=== PATIENT | male | born 1965 | race Caucasian/White ===

== ENCOUNTER → 2016-07-25 | Outpatient (CLI) | payer MEDICARE, OTHER ==
--- NOTE | 2016-07-25 15:39 | XR ---
EXAMINATION TYPE: XR chest 2V DATE OF EXAM: 07/25/2016 3:24 PM HISTORY: F17.200 nicotine dependence. REFERENCE: Previous study dated 11/19/2012. FINDINGS: The lungs are clear. Pleural spaces are clear. Heart size is normal. There is a mild pectus excavatum deformity. IMPRESSION: NORMAL CHEST.
== END ==
LOC: RADXRMAIN 15:09
PROVIDERS: ATTEND Physician Assistant
DX: F17.200 Nicotine dependence, unspecified, uncomplicated (principal)
CPT/HCPCS: 71020

== ENCOUNTER 2017-01-17 14:52 | Emergency (ER) | payer MEDICARE, OTHER ==
[2017-01-17 15:02] VITALS: BP 211/102; PULSE 85; RESP 18; TEMP 99.1
[2017-01-17] MEDS ORDERED: HYDROmorphone 1 MG/ML 1 ML SYRINGE IVP STA (15:50)
[2017-01-17] MEDS ORDERED: ONDANSETRON 4 MG/2 ML VIAL IVP STA (15:51)
[2017-01-17] MEDS ORDERED: DIPH,PERTUS(ACELL)TETVAC-LF 0.5 ML VIAL IM ONE (16:00)
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
== END 2017-01-17 16:01 | disposition left against medical advice (07) ==
LOC: EC 14:52
DX: S09.90XA Unspecified injury of head, initial encounter (principal); S19.9XXA Unspecified injury of neck, initial encounter; R55 Syncope and collapse; G40.909 Epilepsy, unspecified, not intractable, without status epilepticus; F41.9 Anxiety disorder, unspecified; R40.2412 Glasgow coma scale score 13-15, at arrival to emergency department; M19.90 Unspecified osteoarthritis, unspecified site; Z53.29 Procedure and treatment not carried out because of patient's decision for other reasons; Z87.891 Personal history of nicotine dependence; Z88.8 Allergy status to other drugs, medicaments and biological substances; Z79.891 Long term (current) use of opiate analgesic; Z79.899 Other long term (current) drug therapy; Y00.XXXA Assault by blunt object, initial encounter
CPT/HCPCS: 99283

== ENCOUNTER 2019-04-01 11:05 | Inpatient (IN) | payer MEDICARE, OTHER ==
[2019-04-01] MEDS ORDERED: MORPHINE SULFATE 2 MG/ML SYRINGE IVP STA (11:32)
[2019-04-01] MEDS ORDERED: SODIUM CHLORIDE 0.9% 1,000 ML IV STA (11:32)
[2019-04-01] MEDS ORDERED: ONDANSETRON 4 MG/2 ML VIAL IVP STA (11:32)
--- NOTE | 2019-04-01 11:37 | ED ---
General Adult HPI - General Chief complaint: Abdominal Pain Stated complaint: abdominal pain Time Seen by Provider: 04/01/19 11:20 Source: patient, RN notes reviewed, old records reviewed Mode of arrival: ambulatory Limitations: no limitations - History of Present Illness Initial comments: 53 yo male presenting with generalized abdominal pain. Patient does improve the pain is worse in the left side of his abdomen as well as left flank. Patient reports normal bowel movements just prior to arrival. He's had nausea and decreased appetite as well as several episodes of vomiting. Denies dysuria or hematuria. States he has had intermittent abdominal pain over the past several months however this has intensified over the past 4 days he's been unable to eat or drink. He's had previous hernia repair. No other abdominal surgeries. - Related Data Home Medications Medication Instructions Recorded Confirmed ALPRAZolam [Xanax] 0.5 mg PO BID 01/17/17 01/17/17 Acetaminophen with Codeine 1 tab PO TID 01/17/17 01/17/17 [Tylenol w/codeine #4] Diazepam [Valium] 5 mg PO BID 01/17/17 01/17/17 Gabapentin [Neurontin] 600 mg PO TID 01/17/17 01/17/17 HYDROcodone/APAP 5-325MG [[place] 1 tab PO Q8H PRN 01/17/17 01/17/17 5-325] carBAMazepine [TEGretol] 200 mg PO Q12H 01/17/17 01/17/17 traMADol HCl [Ultram] 50 - 100 mg PO Q6H PRN 01/17/17 01/17/17 Allergies Allergy/AdvReac Type Severity Reaction Status Date / Time diphenhydramine HCl Allergy Unknown Verified 04/01/19 11:14 [From Benadryl] Review of Systems ROS Statement: Those systems with pertinent positive or pertinent negative responses have been documented in the HPI. ROS Other: All systems not noted in ROS Statement are negative. Past Medical History Past Medical History: Osteoarthritis (OA) Additional Past Medical History / Comment(s): epilepsy, chronic back/neck pain History of Any Multi-Drug Resistant Organisms: None Reported Past Surgical History: Hernia Repair Past Psychological History: Anxiety, Depression Smoking Status: Former smoker Past Alcohol Use History: Occasional Past Drug Use History: Marijuana General Exam Limitations: no limitations General appearance: alert, in no apparent distress Head exam: Present: atraumatic, normocephalic Eye exam: Present: normal appearance, PERRL ENT exam: Present: normal exam Neck exam: Present: normal inspection. Absent: tenderness Respiratory exam: Present: normal lung sounds bilaterally. Absent: respiratory distress, wheezes Cardiovascular Exam: Present: regular rate, normal rhythm GI/Abdominal exam: Present: soft, tenderness (Tenderness palpation left upper and lower). Absent: distended Extremities exam: Present: normal inspection, normal capillary refill. Absent: pedal edema Neurological exam: Present: alert, oriented X3, CN II-XII intact. Absent: motor sensory deficit Psychiatric exam: Present: normal affect, normal mood Skin exam: Present: warm, dry, intact. Absent: cyanosis, diaphoretic Course Vital Signs 04/01/19 11:15 Temperature 97.8 F Pulse Rate 98 Respiratory 18 Rate Blood Pressure 134/78 O2 Sat by Pulse 99 Oximetry Medical Decision Making - Medical Decision Making 53-year-old male with anorexia, nausea, and abdominal pain. Laboratory studies obtained, patient has normal CBC, CMP shows hyperbilirubinemia with the bilirubin of 2.2, elevated AST and ALT at 233 and 727 respectively. CAT scan does show an dilated common bile duct as well as ileus and question of free fluid of uncertain etiology within the pelvis., Bile duct 1.0 cm. Ultrasound is obtained which does show similar findings with no other acute findings. Patient has not eaten, clinically appearing very dehydrated. He will be admitted for IV fluids and gastroenterology evaluation. Additional laboratory studies have been added and these are pending including Tylenol level, bilirubin fractions, and hepatitis panel. - Lab Data Result diagrams: 04/01/19 11:52 04/01/19 11:52 Lab Results 04/01/19 04/01/19 04/01/19 Range/Units 11:52 11:52 11:52 WBC 4.9 (3.8-10.6) k/uL RBC 4.15 L (4.30-5.90) m/uL Hgb 13.6 (13.0-17.5) gm/dL Hct 40.8 (39.0-53.0) % MCV 98.4 (80.0-100.0) fL MCH 32.7 (25.0-35.0) pg MCHC 33.3 (31.0-37.0) g/dL RDW 14.2 (11.5-15.5) % Plt Count 285 (150-450) k/uL Neutrophils % 72 % Lymphocytes % 17 % Monocytes % 6 % Eosinophils % 2 % Basophils % 1 % Neutrophils # 3.5 (1.3-7.7) k/uL Lymphocytes # 0.9 L (1.0-4.8) k/uL Monocytes # 0.3 (0-1.0) k/uL Eosinophils # 0.1 (0-0.7) k/uL Basophils # 0.0 (0-0.2) k/uL Sodium 135 L (137-145) mmol/L Potassium 4.0 (3.5-5.1) mmol/L Chloride 103 (98-107) mmol/L Carbon Dioxide 25 (22-30) mmol/L Anion Gap 7 mmol/L BUN 12 (9-20) mg/dL Creatinine 0.65 L (0.66-1.25) mg/dL Est GFR (CKD-EPI)AfAm >90 (>60 ml/min/1.73 sqM) Est GFR (CKD-EPI)NonAf >90 (>60 ml/min/1.73 sqM) Glucose 143 H (74-99) mg/dL Plasma Lactic Acid Juan M 1.7 (0.7-2.0) mmol/L Calcium 8.6 (8.4-10.2) mg/dL Total Bilirubin 2.2 H (0.2-1.3) mg/dL AST 233 H (17-59) U/L ALT 727 H (21-72) U/L Alkaline Phosphatase 92 (38-126) U/L Total Protein 7.0 (6.3-8.2) g/dL Albumin 3.4 L (3.5-5.0) g/dL Amylase 50 (30-110) U/L Lipase 146 (23-300) U/L Urine Color Urine Appearance (Clear) Urine pH (5.0-8.0) Ur Specific [place] (1.001-1.035) Urine Protein (Negative) Urine Glucose (UA) (Negative) Urine Ketones (Negative) Urine Blood (Negative) Urine Nitrite (Negative) Urine Bilirubin (Negative) Urine Urobilinogen (<2.0) mg/dL Ur Leukocyte Esterase (Negative) 04/01/19 Range/Units 11:52 WBC (3.8-10.6) k/uL RBC (4.30-5.90) m/uL Hgb (13.0-17.5) gm/dL Hct (39.0-53.0) % MCV (80.0-100.0) fL MCH (25.0-35.0) pg MCHC (31.0-37.0) g/dL RDW (11.5-15.5) % Plt Count (150-450) k/uL Neutrophils % % Lymphocytes % % Monocytes % % Eosinophils % % Basophils % % Neutrophils # (1.3-7.7) k/uL Lymphocytes # (1.0-4.8) k/uL Monocytes # (0-1.0) k/uL Eosinophils # (0-0.7) k/uL Basophils # (0-0.2) k/uL Sodium (137-145) mmol/L Potassium (3.5-5.1) mmol/L Chloride (98-107) mmol/L Carbon Dioxide (22-30) mmol/L Anion Gap mmol/L BUN (9-20) mg/dL Creatinine (0.66-1.25) mg/dL Est GFR (CKD-EPI)AfAm (>60 ml/min/1.73 sqM) Est GFR (CKD-EPI)NonAf (>60 ml/min/1.73 sqM) Glucose (74-99) mg/dL Plasma Lactic Acid Juan M (0.7-2.0) mmol/L Calcium (8.4-10.2) mg/dL Total Bilirubin (0.2-1.3) mg/dL AST (17-59) U/L ALT (21-72) U/L Alkaline Phosphatase (38-126) U/L Total Protein (6.3-8.2) g/dL Albumin (3.5-5.0) g/dL Amylase (30-110) U/L Lipase (23-300) U/L Urine Color Yellow Urine Appearance Clear (Clear) Urine pH 6.0 (5.0-8.0) Ur Specific [place] 1.045 H (1.001-1.035) Urine Protein Negative (Negative) Urine Glucose (UA) Negative (Negative) Urine Ketones Negative (Negative) Urine Blood Negative (Negative) Urine Nitrite Negative (Negative) Urine Bilirubin Negative (Negative) Urine Urobilinogen <2.0 (<2.0) mg/dL Ur Leukocyte Esterase Negative (Negative) Disposition Clinical Impression: Abdominal pain, Transaminitis, Hyperbilirubinemia Disposition: ADMITTED IP TO THIS HOSP Condition: Stable Referrals: None,Stated [Primary Care Provider] - 1-2 days Decision to Admit Reason: Admit from EC Decision Date: 04/01/19 Decision Time: 13:58
[2019-04-01 12:20] LABS: Basophils % (A) 1 %; Eosinophils # (A) 0.1 k/uL (0-0.7); Eosinophils % (A) 2 %; HCT 40.8 % (39.0-53.0); HGB 13.6 gm/dL (13.0-17.5); Lymphocytes # (A) 0.9 k/uL (1.0-4.8); Lymphocytes % (A) 17 %; MCH 32.7 pg (25.0-35.0); MCHC 33.3 g/dL (31.0-37.0); MCV 98.4 fL (80.0-100.0); Mean Platelet Volume 7.1; Monocytes # (A) 0.3 k/uL (0-1.0); Monocytes % (A) 6 %; Neutrophils # (A) 3.5 k/uL (1.3-7.7); Neutrophils % (A) 72 %; Platelet Count 285 k/uL (150-450); RBC 4.15 m/uL (4.30-5.90); RDW 14.2 % (11.5-15.5); WBC 4.9 k/uL (3.8-10.6)
[2019-04-01 12:25] LABS: ALT 727 U/L (21-72); AST 233 U/L (17-59); African American GFR (CKD) >90 (>60 ml/min/1.73 sqM); Albumin 3.4 g/dL (3.5-5.0); Alkaline Phosphatase 92 U/L (38-126); Amylase 50 U/L (30-110); Anion Gap 7 mmol/L; Blood Urea Nitrogen 12 mg/dL (9-20); Calcium 8.6 mg/dL (8.4-10.2); Carbon Dioxide 25 mmol/L (22-30); Chloride 103 mmol/L (98-107); Glucose 143 mg/dL (74-99); Non-African American GFR(CKD) >90 (>60 ml/min/1.73 sqM); Sodium 135 mmol/L (137-145); Total Bilirubin 2.2 mg/dL (0.2-1.3)
--- NOTE | 2019-04-01 12:38 | CT ---
EXAMINATION TYPE: CT abdomen pelvis w con DATE OF EXAM: 04/01/2019 COMPARISON: NONE HISTORY: 53-year-old male with generalized abdominal pain, posteriorly as well TECHNIQUE: Contiguous axial scanning of the abdomen and pelvis following administration of 100 ml Iso sebastien 300 IV contrast. Delayed images through the kidneys and coronal/sagittal reconstructions perform ed. CT DLP: 556.3 mGycm Automated exposure control for dose reduction was used. FINDINGS: Heart normal size without pericardial effusion. Lung bases clear without pleural effusion. Scattered subcentimeter hypodensities within the left hepatic lobe too small for accurate CT characte rization, likely cysts. The bile duct is mildly dilated at 1 cm along with mild intrahepatic biliary ductal dilatation as wel l. No discrete filling defect is identified in the bile duct. Portal venous system is patent. Gallbladder, adrenal glands, spleen, and pancreas appear within normal limits. Kidneys show tiny subcentimeter hypodensities on both sides, too small for accurate CT characterizati on, likely tiny cortical cysts. There is a dominant 1.3 cm cyst centrally in the left kidney. On the right, the couple's the areas of striated hypoenhancement, reference axial image 36 and fleming l image 33, 36, 37. There is motion artifact through these regions. No dilated small bowel, free fluid, or free air. A few prominent small bowel loops in the left lower quadrant measure up to 2.8 cm. Scattered mild stool. Significant paucity of intra-abdominal fat limits evaluation for lymphadenopath y. Mild atherosclerosis calcifications infrarenal abdominal aorta without aneurysm. Bladder urine distended. Central and peripheral prostatic calcifications. Prostate gland measures 4.4 cm wide. There is mild pelvic free fluid on the right. Left-sided pelvic free fluid. Bones: Hypertrophic facet arthropathy lower lumbar spine with grade 1 anterolisthesis at L5-S1. Moder ate to severe degenerative disc disease L-1-L2 and moderate within the visualized lower thoracic spin e. IMPRESSION: 1. Very subtle striated areas of hypoenhancement within the right kidney may be artifact from breathi ng motion. Correlate to exclude the possibility of pyelonephritis. 2. Mild biliary ductal dilatation. The bile duct measures 1 cm. Correlate with alkaline phosphatase a nd bilirubin levels to exclude biliary obstruction. 3. A few prominent small bowel loops in the left lower quadrant measure up to 2.8 cm and may be trans ient or could reflect a regional ileus or enteritis. 4. Mild pelvic free fluid on the right, abnormal in a male patient. Clinical follow-up as indicated.
--- NOTE | 2019-04-01 13:37 | US ---
EXAMINATION TYPE: US gallbladder DATE OF EXAM: 04/01/2019 COMPARISON: NONE CLINICAL HISTORY: bile obstruction?. Bile obstruction. EXAM MEASUREMENTS: Liver Length: 17 cm Gallbladder Wall: .3 cm CBD: .9 cm Right Kidney: 11.4 x 5.3 x 4.5 cm Pancreas: wnl Liver: wnl Gallbladder: No stones seen Evidence for sonographic Solo's sign: No CBD: wnl Right Kidney: wnl IMPRESSION: Mild prominence of the common bile duct of uncertain etiology. The study is otherwise unremarkable.
[2019-04-01 13:49] LABS: Appearance,Urine Clear (Clear); Bilirubin,Urine Negative (Negative); Blood,Urine Negative (Negative); Color,Urine Yellow; Glucose,Urine (UA) Negative (Negative); Ketones,Urine Negative (Negative); Leukocyte Esterase,Urine Negative (Negative); Nitrite,Urine Negative (Negative); Protein,Urine Negative (Negative); Specific Gravity,Urine 1.045 (1.001-1.035); Urobilinogen,Urine <2.0 mg/dL (<2.0)
[2019-04-01] MEDS ORDERED: ONDANSETRON 4 MG/2 ML VIAL IVP PRN (13:54)
[2019-04-01] MEDS ORDERED: NALOXONE 0.4 MG/ML 1 ML VIAL IV PRN (13:54)
[2019-04-01 14:34] VITALS: RESP 16
[2019-04-01] MEDS: SODIUM CHLORIDE 0.9% 1,000 ML IV SCH (14:47)
[2019-04-01 15:22] LABS: Acetaminophen <10.0 ug/mL; Bilirubin, Delta 1.6 mg/dL (0.0-0.2); Bilirubin,Unconjugated 0.6 mg/dL (0.0-1.1); Total Bilirubin 2.2 mg/dL (0.2-1.3)
[2019-04-01] MEDS ORDERED: NICOTINE 14MG/24HR PATCH TRANSDERM SCH (16:00)
[2019-04-01] MEDS ORDERED: traMADol 50 MG TAB PO PRN (16:21)
--- NOTE | 2019-04-01 16:26 | P.HPIM ---
History of Present Illness 3-year-old male complaints of abdominal pain mostly in the back area paraspinal area which is sharp in nature nonradiating which appears to be muscle spasm. Patient is also complaining of on and off abdominal pain although it doesn't localize it very well because of his ADHD appears to have pains secondary to gallstones. Patient doesn't eat because of anticipation of pain and has been losing weight. Patient denied any significant nausea or vomiting. Patient denied any dysuria suprapubic pain CAT scan of the abdomen was opted which showed some cholelithiasis with the common bile duct stone with elevated bilirubin and liver enzymes. Patient doesn't have any fevers patient has a wound from scratching the left upper back which doesn't appear to be infected and appear to be healing patient at nighttime becomes anxious and starts scratching. Review of Systems REVIEW OF SYSTEMS: CONSTITUTIONAL: No fever, no malaise, no fatigue. HEENT: No recent visual problems or hearing problems. Denied any sore throat. CARDIOVASCULAR: No chest pain, orthopnea, PND, no palpitations, no syncope. PULMONARY: No shortness of breath, no cough, no hemoptysis. GASTROINTESTINAL: No diarrhea, no nausea, no vomiting. NEUROLOGICAL: No headaches, no weakness, no numbness. HEMATOLOGICAL: Denies any bleeding or petechiae. GENITOURINARY: Denies any burning micturition, frequency, or urgency. MUSCULOSKELETAL/RHEUMATOLOGICAL: Denies any joint pain, swelling, or any muscle pain. ENDOCRINE: Denies any polyuria or polydipsia. The rest of the 14-point review of systems is negative. Past Medical History Past Medical History: Osteoarthritis (OA) Additional Past Medical History / Comment(s): epilepsy, chronic back/neck pain History of Any Multi-Drug Resistant Organisms: None Reported Past Surgical History: Hernia Repair Past Psychological History: Anxiety, Depression Smoking Status: Former smoker Past Alcohol Use History: Occasional Past Drug Use History: Marijuana Medications and Allergies Home Medications Medication Instructions Recorded Confirmed Type HYDROcodone/APAP 5-325MG [[place] 1 tab PO DAILY PRN 01/17/17 04/01/19 History 5-325] traMADol HCl [Ultram] 50 mg PO TID PRN 01/17/17 04/01/19 History Allergies Allergy/AdvReac Type Severity Reaction Status Date / Time diphenhydramine HCl Allergy Unknown Verified 04/01/19 14:10 [From [facility]] Physical Exam Vitals: Vital Signs Temp Pulse Pulse Resp BP BP Pulse Ox 04/01/19 14:33 97.8 F 54 L 16 139/85 99 04/01/19 14:21 85 18 132/76 98 04/01/19 11:15 97.8 F 98 18 134/78 99 Intake and Output 04/01/19 04/01/19 04/01/19 06:59 14:59 22:59 Other: Voiding Method Toilet Weight 54.431 kg PHYSICAL EXAMINATION: GENERAL: The patient is alert and oriented x3, not in any acute distress. And built female HEENT: Pupils are round and equally reacting to light. EOMI. No scleral icterus. No conjunctival pallor. Normocephalic, atraumatic. No pharyngeal erythema. No thyromegaly. CARDIOVASCULAR: S1 and S2 present. No murmurs, rubs, or gallops. PULMONARY: Chest is clear to auscultation, no wheezing or crackles. ABDOMEN: Soft, nontender, nondistended, normoactive bowel sounds. No palpable organomegaly. MUSCULOSKELETAL: No joint swelling or deformity. EXTREMITIES: No cyanosis, clubbing, or pedal edema. NEUROLOGICAL: Gross neurological examination did not reveal any focal deficits. SKIN: No rashes. Results CBC & Chem 7: 04/01/19 11:52 04/01/19 11:52 Labs: Abnormal Lab Results - Last 24 Hours (Table) 04/01/19 04/01/19 04/01/19 Range/Units 11:52 11:52 11:52 RBC 4.15 L (4.30-5.90) m/uL Lymphocytes # 0.9 L (1.0-4.8) k/uL Sodium 135 L (137-145) mmol/L Creatinine 0.65 L (0.66-1.25) mg/dL Glucose 143 H (74-99) mg/dL Total Bilirubin 2.2 H (0.2-1.3) mg/dL Delta Bilirubin (0.0-0.2) mg/dL AST 233 H (17-59) U/L ALT 727 H (21-72) U/L Albumin 3.4 L (3.5-5.0) g/dL Ur Specific [place] 1.045 H (1.001-1.035) 04/01/19 Range/Units 14:56 RBC (4.30-5.90) m/uL Lymphocytes # (1.0-4.8) k/uL Sodium (137-145) mmol/L Creatinine (0.66-1.25) mg/dL Glucose (74-99) mg/dL Total Bilirubin 2.2 H (0.2-1.3) mg/dL Delta Bilirubin 1.6 H (0.0-0.2) mg/dL AST (17-59) U/L ALT (21-72) U/L Albumin (3.5-5.0) g/dL Ur Specific [place] (1.001-1.035) Assessment and Plan Plan: -Elevated liver numbers possibly of choledocholithiasis we'll repeat liver enzymes again tomorrow and gastroenterology was consulted patient may have cholelithiasis which is not clearly evident at this time may have passed a stone. -Back pain probably paraspinal muscle spasm or heat pack was advised Gastroesophageal reflux disease continue Protonix -ADHD patient doesn't appear to be in any medications for that -Nicotine abuse: Counseling was provided, occasional marijuana his counseling was provided DVT prophylaxis early ambulation
[2019-04-01] MEDS: HYDROmorphone 0.5 MG/0.5 ML SYRINGE IVP PRN ×3 (16:46→23:58)
[2019-04-02 04:07] LABS: Hepatitis A Antibody IgM Non-Reactive (Non-Reactive); Hepatitis B Core IgM Reactive (Non-Reactive); Hepatitis C IgG Antibody Reactive (Non-Reactive)
[2019-04-02] MEDS: HYDROmorphone 0.5 MG/0.5 ML SYRINGE IVP PRN ×3 (05:04→10:21)
[2019-04-02] MEDS: SODIUM CHLORIDE 0.9% 1,000 ML IV SCH (05:05)
[2019-04-02 05:31] VITALS: BP 118/76; PULSE 56; TEMP 98.3
[2019-04-02 08:16] LABS: ALT 619 U/L (21-72); AST 194 U/L (17-59); African American GFR (CKD) >90 (>60 ml/min/1.73 sqM); Alkaline Phosphatase 90 U/L (38-126); Anion Gap 4 mmol/L; Blood Urea Nitrogen 8 mg/dL (9-20); Calcium 8.6 mg/dL (8.4-10.2); Carbon Dioxide 28 mmol/L (22-30); Chloride 104 mmol/L (98-107); Glucose 92 mg/dL (74-99); Non-African American GFR(CKD) >90 (>60 ml/min/1.73 sqM); Potassium 5.1 mmol/L (3.5-5.1); Sodium 136 mmol/L (137-145); Total Bilirubin 1.9 mg/dL (0.2-1.3); Total Protein 6.4 g/dL (6.3-8.2)
[2019-04-02 08:44] LABS: INR 1.1 (<1.2); Prothrombin Time 11.7 sec (9.0-12.0)
[2019-04-02] MEDS ORDERED: PANTOPRAZOLE 40 MG/10 ML VIAL IV SCH (09:00)
[2019-04-02 11:42] LABS: Hepatitis B Surface Antigen Reactive (Non-Reactive)
--- NOTE | 2019-04-02 14:20 | MR ---
MRCP HISTORY: Bowel dilation, abdominal pain Multiplanar multisequence imaging obtained through the abdomen, three-dimensional reconstructions per formed through the biliary system on an alternate workstation Correlation to ultrasound gallbladder and CT abdomen pelvis 04/01/2019 The liver shows no mass, scattered T2 intense hyperintensities left lobe likely represent cysts. At a phase imaging shows unusual appearance possibly due to technical factors. There is no ascites. Gallb ladder shows no stone. There are prominent intra and extrahepatic biliary ducts as noted on CT and ul trasound, common bile duct dilated to 1 cm. There is no filling defect to suggest choledocholithiasis . No definite pancreatic ductal dilation, pancreas shows no mass. There is however on coronal image # [address] scan questionable abnormal soft tissue at the level of the distal common bile winsome t possibly similar appearance seen on coronal image #51 and 50 of the post process images. Third port ion of duodenum also appears markedly prominent as on CT, there is dilation of the duodenum at this l evel. The kidneys and adrenal glands are unremarkable, cortical cyst associated with the left kidney.. Sple en is not enlarged. No retroperitoneal adenopathy or ascites. Lung bases are clear. Aorta is not dila jenn. IMPRESSION: Difficult to exclude ampullary mass, consider endoscopy. Possible hepatic steatosis.
--- NOTE | 2019-04-02 15:15 | P.PN ---
Subjective Progress Note Date: 04/02/19 Patient left AGAINST MEDICAL ADVICE. Lab results showing hepatitis B positive antibody and hepatitis C positive antibody further blood work pending. MRCP was completed. Public guardian Antonio Hitchcock's office, spoke with Emilianaeverett, notified at [phone] that patient needs follow-up with gastroenterology office Dr. Mckeon regarding Hepatitis status and MRCP results, they can call [phone] to set up appointment. Objective - Vital Signs Vital signs: Vital Signs Temp 98.3 F 04/02/19 05:00 Pulse 56 L 04/02/19 05:00 Resp 16 04/02/19 05:00 BP 118/76 04/02/19 05:00 Pulse Ox 99 04/02/19 05:00 Intake & Output 04/01/19 04/02/19 04/02/19 18:59 06:59 18:59 Intake Total 540 1140 Balance 540 1140 Weight 54.431 kg Intake: Intake, IV Titration 900 Amount Sodium Chloride 0.9% 1, 900 000 ml @ 75 mls/hr IV . [id number] [facility] Rx#:[id number] Oral 540 240 Other: Voiding Method Toilet Toilet Toilet # Voids 1 - Labs CBC & Chem 7: 04/01/19 11:52 04/02/19 07:48 Labs: Abnormal Lab Results - Last 24 Hours (Table) 04/01/19 04/01/19 04/02/19 Range/Units 14:56 14:56 07:48 Sodium 136 L (137-145) mmol/L BUN 8 L (9-20) mg/dL Total Bilirubin 2.2 H 1.9 H (0.2-1.3) mg/dL Delta Bilirubin 1.6 H (0.0-0.2) mg/dL AST 194 H (17-59) U/L ALT 619 H (21-72) U/L Albumin 3.0 L (3.5-5.0) g/dL Hep Bs Antigen Reactive H (Non-Reactive) Hep B Core IgM Ab Reactive H (Non-Reactive) Hep C IgG Ab Reactive H (Non-Reactive)
--- NOTE | 2019-04-02 16:07 | P.DS ---
Providers Date of admission: 04/01/19 13:54 Attending physician: Norris Stiles Consults: 04/01/19 13:55 Consult Physician Routine Consulting Provider: yAan Mckeon Consult Reason/Comments: Transaminitis, hyperbilirubinemia, dilated bile duct Do you want consulting provider notified?: Yes 04/02/19 10:32 Consult Physician Routine Consulting Provider: Psychiatry - [facility] Psychiatry Consult Reason/Comments: anxiety Do you want consulting provider notified?: Already Contacted Primary care physician: Stated None Hospital Course: Patient left AGAINST MEDICAL ADVICE Patient Condition at Discharge: Stable Plan - Discharge Summary Discharge Rx Participant: No New Discharge Prescriptions: No Action HYDROcodone/APAP 5-325MG [[place] 5-325] 1 tab PO DAILY PRN PRN Reason: Pain traMADol HCl [Ultram] 50 mg PO TID PRN PRN Reason: Pain Discharge Medication List HYDROcodone/APAP 5-325MG [[place] 5-325] 1 tab PO DAILY PRN 01/17/17 [History] traMADol HCl [Ultram] 50 mg PO TID PRN 01/17/17 [History] Follow up Appointment(s)/Referral(s): None,Stated [Primary Care Provider] - 1-2 days Discharge Disposition: Left Against Medical Advice
[2019-04-04 15:05] LABS: HCV Qualitative Result DETECTED (Not detected); HCV Quantitative Result 50 IU/mL (<12)
== END 2019-04-02 12:10 | disposition left against medical advice (07) | DRG 442 ==
LOC: EC 11:05 → 3NMEDONC 13:54 → EEVIPCON 13:54
PROVIDERS: ADMIT Hospitalist; ATTEND Hospitalist
DX: B19.10 Unspecified viral hepatitis B without hepatic coma (principal); K56.7 Ileus, unspecified; K82.8 Other specified diseases of gallbladder; Z71.51 Drug abuse counseling and surveillance of drug abuser; F12.10 Cannabis abuse, uncomplicated; F32.9 Major depressive disorder, single episode, unspecified; F41.9 Anxiety disorder, unspecified; F90.9 Attention-deficit hyperactivity disorder, unspecified type; G40.909 Epilepsy, unspecified, not intractable, without status epilepticus; K21.9 Gastro-esophageal reflux disease without esophagitis; B19.20 Unspecified viral hepatitis C without hepatic coma; M19.90 Unspecified osteoarthritis, unspecified site; M79.18 Myalgia, other site; G89.29 Other chronic pain; M54.2 Cervicalgia; Z88.8 Allergy status to other drugs, medicaments and biological substances; Z87.891 Personal history of nicotine dependence
CPT/HCPCS: 36415; 74177; 74181; 76705; 80053; 80074; 80329; 81003; 82150; 82248; 83605; 83690; 85025; 85610; 87340; 87350; 87522; 96361; 96374; 96375; 99285

== ENCOUNTER → 2019-05-01 | Outpatient (CLI) | payer MEDICARE, OTHER ==
[2019-05-01 12:37] LABS: Prothrombin Time 10.4 sec (9.0-12.0)
[2019-05-01 12:40] LABS: Basophils % (A) 0 %; Eosinophils # (A) 0.2 k/uL (0-0.7); Eosinophils % (A) 2 %; HCT 40.7 % (39.0-53.0); HGB 13.8 gm/dL (13.0-17.5); Lymphocytes # (A) 1.9 k/uL (1.0-4.8); Lymphocytes % (A) 20 %; MCH 32.8 pg (25.0-35.0); MCV 96.6 fL (80.0-100.0); Mean Platelet Volume 7.3; Monocytes # (A) 0.3 k/uL (0-1.0); Monocytes % (A) 3 %; Neutrophils # (A) 6.8 k/uL (1.3-7.7); Neutrophils % (A) 73 %; RBC 4.22 m/uL (4.30-5.90); RDW 14.1 % (11.5-15.5); WBC 9.4 k/uL (3.8-10.6)
[2019-05-01 12:42] LABS: Platelet Count 654 k/uL (150-450)
[2019-05-01 17:47] LABS: % Iron Saturation 22.08 (15.00-50.00); African American GFR (CKD) 132.1 (60.0-200.0); Albumin 3.7 g/dL (3.80-4.90); Albumin/Globulin Ratio 1.12 (1.60-3.17); Anion Gap 6.1 mmol/L (4.00-12.00); BUN/Creat Ratio 36.67 Ratio (12.00-20.00); Calcium 9.4 mg/dL (8.7-10.3); Carbon Dioxide 27.9 mmol/L (21.6-31.8); Globulin 3.3 g/dL (1.6-3.3); Potassium 4.8 mmol/L (3.5-5.5); Total Bilirubin 0.4 mg/dL (0.2-1.2)
[2019-05-01 18:00] LABS: Alpha Fetoprotein, Tumor Mkr <2.5 ng/mL (0.0-7.9); Ferritin 359.2 ng/mL (22.0-322.0)
[2019-05-01 19:10] LABS: HIV 1 AB Non-Reactive (Non-Reactive); HIV 2 AB Non-Reactive (Non-Reactive); HIV AB P24 Non-Reactive (Non-Reactive); HIV P24 AG Non-Reactive (Non-Reactive)
[2019-05-02 11:34] LABS: Liver/Kidney Microsome Antibod 1.7 UNITS (<=20); Smooth Muscle Antibody 14 UNITS (<20)
[2019-05-02 13:10] LABS: Alpha 1 Anti-Trypsin 289 mg/dL (90 - 200)
[2019-05-02 14:36] LABS: HCV Qualitative Result DETECTED (Not detected); HCV Quant Log 1.15 (<1.08); HCV Quantitative Result 14 IU/mL (<12)
[2019-05-02 15:50] LABS: Hepatitis B Virus DNA DETECTED (Not detected); Hepatitis B Virus DNA, Quant 261 IU/mL (<10); Log HBV IU/mL 2.42 (<1.00)
[2019-05-03 13:42] LABS: Ceruloplasmin 34.2 mg/dL (20.0-60.0)
== END | disposition home or self-care (01) ==
LOC: LABWHC1 11:21
PROVIDERS: ATTEND Nurse Practitioner
DX: R76.8 Other specified abnormal immunological findings in serum (principal); R74.8 Abnormal levels of other serum enzymes; Z86.19 Personal history of other infectious and parasitic diseases
CPT/HCPCS: 36415; 80053; 82103; 82104; 82105; 82390; 82728; 83516; 83540; 83550; 84165; 85025; 85610; 86038; 86376; 87390; 87517; 87522

== ENCOUNTER 2019-10-21 01:02 | Emergency (ER) | payer MEDICARE, OTHER ==
[2019-10-21 01:13] VITALS: BP 153/87; PULSE 104; RESP 17; TEMP 98.4
[2019-10-21] MEDS ORDERED: AMOXIC-POT CLAV 875MG STARTER PACK 2 TAB BTL PO STA (01:13)
[2019-10-21] MEDS ORDERED: AMOXIC-POT CLAV 875-125MG 1 EACH TAB PO STA (01:13)
[2019-10-21] MEDS ORDERED: DIPH,PERTUS(ACELL)TETVAC-LF 0.5 ML VIAL IM ONE (01:13)
--- NOTE | 2019-10-21 01:50 | ED ---
General Adult HPI - General Chief complaint: Extremity Injury, Upper Stated complaint: cat bite Time Seen by Provider: 10/21/19 01:03 Source: patient, EMS, RN notes reviewed, old records reviewed Mode of arrival: EMS Limitations: no limitations - History of Present Illness Initial comments: 53-year-old male patient presents ED for evaluation of cat scratch. Patient reports that there is a large cat by his house that was attempting he believes teammate with another cat that he owns. Patient was trying to separate these cats when the large cat that he is unfamiliar with scratched him on the dorsum of his left hand and one time on the first digit of his right hand. Patient was this happened very fast. Patient states that last tetanus was 14 years ago. Denies any other complaints. Systemic: Pt denies fatigue, fever/chills, rash. Pt denies weakness, night sweats, weight loss. Neuro: Pt denies headache, visual disturbances, syncope or pre-syncope. HEENT: Pt denies ocular discharge or irritation, otalgia, rhinorrhea, pharyngitis or notable lymphadenopathy. Cardiopulmonary: Pt denies chest pain, SOB, heart palpitations, dyspnea on exertion. Abdominal/GI: Pt denies abdominal pain, n/v/d. : Pt denies dysuria, burning w/ urination, frequency/urgency. Denies new onset urinary or bowel incontinence. MSK: Pt denies myalgia, loss of strength or function in extremities. Neuro: Pt denies new onset weakness, paresthesias. - Related Data Home Medications Medication Instructions Recorded Confirmed HYDROcodone/APAP 5-325MG [[place] 1 tab PO DAILY PRN 01/17/17 04/01/19 5-325] traMADol HCl [Ultram] 50 mg PO TID PRN 01/17/17 04/01/19 Previous Rx's Medication Instructions Recorded Amoxicillin/Potassium Clav 1 each PO Q12HR 10 Days #20 tab 10/21/19 [Augmentin 875-125 Tablet] Allergies Allergy/AdvReac Type Severity Reaction Status Date / Time diphenhydramine HCl Allergy Unknown Verified 04/01/19 14:10 [From Benadryl] Review of Systems ROS Statement: Those systems with pertinent positive or pertinent negative responses have been documented in the HPI. ROS Other: All systems not noted in ROS Statement are negative. Past Medical History Past Medical History: Osteoarthritis (OA) Additional Past Medical History / Comment(s): epilepsy, chronic back/neck pain, hepatitis C History of Any Multi-Drug Resistant Organisms: None Reported Past Surgical History: Hernia Repair Additional Past Surgical History / Comment(s): R inguinal hernia repair, L arm benign tumor excision. Past Anesthesia/Blood Transfusion Reactions: No Reported Reaction Past Psychological History: Anxiety, Depression Smoking Status: Current every day smoker Past Alcohol Use History: Occasional Past Drug Use History: Marijuana - Past Family History Father Family Medical History: Cancer Additional Family Medical History / Comment(s): lung/liver cancer. He is . Mother Family Medical History: Cancer Additional Family Medical History / Comment(s): Mother of lung cancer. She was a smoker. General Exam - General Exam Comments Initial Comments: Constitutional: NAD, AOX3, Pt has pleasant affect. HEENT: NC/AT, trachea midline, neck supple, no lymphadenopathy. Posterior pharynx non erythematous, without exudates. External ears appear normal, without discharge. Mucous membranes moist. Eyes PERRLA, EOM intact. There is no scleral icterus. No pallor noted. Cardiopulmonary: RRR, no murmurs, rubs or gallops, no JVD noted. Lungs CTAB in anterior and posterior irwin. No peripheral edema. Neuro: CN II-XII grossly intact. No nuchal rigidity. No raccon eyes, no apple sign, no hemotympanum. No cervical spinal tenderness. MSK: Superficial scratch noted to dorsum of left hand. Small scartch noted to first digit of right hand. Full active ROM in upper and lower extremities, Limitations: no limitations Course Vital Signs 10/21/19 01:02 Temperature 98.4 F Pulse Rate 104 H Respiratory 17 Rate Blood Pressure 153/87 O2 Sat by Pulse 99 Oximetry Medical Decision Making - Medical Decision Making 53-year-old male patient presents ED for evaluation of cat scratch. Patient reports that there is a large cat by his house that was attempting he believes teammate with another cat that he owns. Patient was trying to separate these cats when the large cat that he is unfamiliar with scratched him on the dorsum of his left hand and one time on the first digit of his right hand. Patient was this happened very fast. Patient states that last tetanus was 14 years ago. Denies any other complaints. Patient vital symptoms are stable, afebrile. Physical exam displayed: Superficial scratch noted to dorsum of left hand. Small scartch noted to first digit of right hand. Full active ROM in upper and lower extremities. Patient tetanus updated. Wound was cleaned in ED. Patient initiated on Augmentin. Patient is declining rabies vaccine. Pt will be discharged. Will follow up with PCP tomorrow and closely watch for signs of infection. Case discussed with Dr. Leonard. Disposition Clinical Impression: Cat scratch Disposition: HOME SELF-CARE Condition: Stable Instructions (If sedation given, give patient instructions): Animal Bite (ED) Additional Instructions: Take antibiotics as directed. Closely monitor for signs of infection. Follow- up with primary care provider tomorrow. Return to ER if condition worsens. Is patient prescribed a controlled substance at d/c from ED?: No Referrals: None,Stated [Primary Care Provider] - 1-2 days Onur Ashford MD [REFERRING] - 1-2 days
== END 2019-10-21 02:00 | disposition home or self-care (01) ==
LOC: EC 01:02
DX: S61.452A Open bite of left hand, initial encounter (principal); F17.200 Nicotine dependence, unspecified, uncomplicated; Z53.20 Procedure and treatment not carried out because of patient's decision for unspecified reasons; Z88.8 Allergy status to other drugs, medicaments and biological substances; Z23 Encounter for immunization; W55.03XA Scratched by cat, initial encounter; Y93.89 Activity, other specified; Y92.009 Unspecified place in unspecified non-institutional (private) residence as the place of occurrence of the external cause
CPT/HCPCS: 90471; 90715; 99284

== ENCOUNTER 2020-03-24 21:35 | Emergency (ER) | payer MEDICARE, OTHER ==
[2020-03-24 21:43] VITALS: BP 102/82; PULSE 111; RESP 20; TEMP 97.7
--- NOTE | 2020-03-24 22:43 | XR ---
EXAMINATION TYPE: XR wrist complete RT DATE OF EXAM: 03/24/2020 COMPARISON: NONE HISTORY: Pain. Fall. TECHNIQUE: 4 views FINDINGS: There is nondisplaced longitudinal fracture in the distal radius extending to the radiocarp al joint. This is adjacent to the ulna. There is no dislocation. Carpal bones appear intact. The visu alized metacarpals are intact. IMPRESSION: Nondisplaced longitudinal intra-articular fracture of the distal radius.
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
[2020-03-25] MEDS ORDERED: LORazepam 1 MG TAB PO STA (03:53)
[2020-03-25] MEDS ORDERED: Acetaminophen-Codeine 300-30mg TAB PO STA (03:54)
== END 2020-03-25 04:20 | disposition home or self-care (01) ==
LOC: EC 21:35
DX: S52.501A Unspecified fracture of the lower end of right radius, initial encounter for closed fracture (principal); R00.0 Tachycardia, unspecified; F17.200 Nicotine dependence, unspecified, uncomplicated; Z88.8 Allergy status to other drugs, medicaments and biological substances; V27.4XXA Motorcycle driver injured in collision with fixed or stationary object in traffic accident, initial encounter; Y92.410 Unspecified street and highway as the place of occurrence of the external cause; Z53.29 Procedure and treatment not carried out because of patient's decision for other reasons
CPT/HCPCS: 70450; 72125; 99284

== ENCOUNTER 2020-04-30 03:31 | Emergency (ER) | payer MEDICARE, OTHER ==
[2020-04-30 03:44] VITALS: BP 174/98; PULSE 100; RESP 18; TEMP 98.2
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
== END 2020-04-30 07:42 | disposition home or self-care (01) ==
LOC: EC 03:31
DX: F19.959 Other psychoactive substance use, unspecified with psychoactive substance-induced psychotic disorder, unspecified (principal); F29 Unspecified psychosis not due to a substance or known physiological condition; Y09 Assault by unspecified means; F17.200 Nicotine dependence, unspecified, uncomplicated; M19.90 Unspecified osteoarthritis, unspecified site; Z88.8 Allergy status to other drugs, medicaments and biological substances
CPT/HCPCS: 99284

== ENCOUNTER 2020-11-13 02:09 | Observation (INO) | payer MEDICARE, OTHER ==
--- NOTE | 2020-11-13 02:30 | ED ---
Chest Pain HPI - General Stated Complaint: Chest Pain Time Seen by Provider: 11/13/20 02:23 Source: RN notes reviewed, old records reviewed Mode of arrival: EMS Limitations: no limitations - History of Present Illness Initial Comments: This is a 54-year-old male severe anxiety coming in for evaluation of chest pain. Chest pain is left-sided epigastric pain. Which is causing him to severe anxiety. Patient has no cough or congestion no shortness of breath patient has no recent travel history or sick contacts no cough or congestion, no prior evaluation for heart disease MD Complaint: chest pain -: hour(s) Onset: during rest, during exertion Pain Location: substernal, left chest Pain Radiation: none Severity: moderate Severity scale (1-10): 4 Quality: heaviness Consistency: intermittent Improves With: nothing Worsens With: exertion Anginal Symptoms: dyspnea Other Symptoms: palpitations Treatments Prior to Arrival: none - Related Data Home Medications Medication Instructions Recorded Confirmed HYDROcodone/APAP 5-325MG [[place] 1 tab PO DAILY PRN 01/17/17 04/01/19 5-325] traMADol HCl [Ultram] 50 mg PO TID PRN 01/17/17 04/01/19 Previous Rx's Medication Instructions Recorded Amoxicillin/Potassium Clav 1 each PO Q12HR 10 Days #20 tab 10/21/19 [Augmentin 875-125 Tablet] Allergies Allergy/AdvReac Type Severity Reaction Status Date / Time diphenhydramine HCl Allergy Unknown Verified 04/30/20 03:44 [From Benadryl] Review of Systems ROS Statement: Those systems with pertinent positive or pertinent negative responses have been documented in the HPI. ROS Other: All systems not noted in ROS Statement are negative. EKG Findings - EKG Comments: EKG Findings:: EKG shows sinus rhythm 73 NC 126 QRS 90 QTC 423 Past Medical History Past Medical History: Osteoarthritis (OA), Seizure Disorder Additional Past Medical History / Comment(s): epilepsy, chronic back/neck pain, hepatitis C History of Any Multi-Drug Resistant Organisms: None Reported Past Surgical History: Hernia Repair Additional Past Surgical History / Comment(s): R inguinal hernia repair, L arm benign tumor excision. Past Anesthesia/Blood Transfusion Reactions: No Reported Reaction Past Psychological History: Anxiety, Depression Smoking Status: Current every day smoker Past Alcohol Use History: Occasional Past Drug Use History: Marijuana - Past Family History Father Family Medical History: Cancer Additional Family Medical History / Comment(s): lung/liver cancer. He is . Mother Family Medical History: Cancer Additional Family Medical History / Comment(s): Mother of lung cancer. She was a smoker. General Exam General appearance: alert, in no apparent distress Head exam: Present: atraumatic, normocephalic, normal inspection Eye exam: Present: normal appearance, PERRL, EOMI. Absent: scleral icterus, conjunctival injection, periorbital swelling ENT exam: Present: normal exam, mucous membranes moist Neck exam: Present: normal inspection. Absent: tenderness, meningismus, lymphadenopathy Respiratory exam: Present: normal lung sounds bilaterally. Absent: respiratory distress, wheezes, rales, rhonchi, stridor Cardiovascular Exam: Present: regular rate, normal rhythm, normal heart sounds. Absent: systolic murmur, diastolic murmur, rubs, gallop, clicks GI/Abdominal exam: Present: soft, normal bowel sounds. Absent: distended, tenderness, guarding, rebound, rigid Extremities exam: Present: normal inspection, full ROM, normal capillary refill. Absent: tenderness, pedal edema, joint swelling, calf tenderness Back exam: Present: normal inspection Neurological exam: Present: alert, oriented X3, CN II-XII intact Psychiatric exam: Present: normal affect, normal mood Skin exam: Present: warm, dry, intact, normal color. Absent: rash Course Vital Signs 11/13/20 11/13/20 02:15 03:59 Temperature 98.2 F 98.4 F Pulse Rate 86 Pulse Rate [ 71 Pulse Oximetery ] Respiratory 17 18 Rate Blood Pressure 127/92 Blood Pressure 153/84 [Right Arm] O2 Sat by Pulse 97 100 Oximetry - Reevaluation(s) Reevaluation #1: Medical record is reviewed Patient symptoms are significantly improved here in the ER Patient is in no distress Spoke patient regarding findings here in the ER and questions are answered Chest Pain MDM - MDM 54 male patient is presenting today for evaluation of chest pain, patient be admitted for chest pain observation Disposition Clinical Impression: Chest pain Disposition: ADMITTED IP TO THIS [facility] Condition: Undetermined Is patient prescribed a controlled substance at d/c from ED?: No
[2020-11-13] MEDS ORDERED: SODIUM CHLORIDE 0.9% 1,000 ML IV STA (02:38)
[2020-11-13 02:54] LABS: Basophils % (A) 1 %; Eosinophils # (A) 0.3 k/uL (0-0.7); Eosinophils % (A) 4 %; HCT 40.3 % (39.0-53.0); HGB 13.4 gm/dL (13.0-17.5); Lymphocytes # (A) 3.3 k/uL (1.0-4.8); Lymphocytes % (A) 47 %; MCH 31.3 pg (25.0-35.0); MCHC 33.3 g/dL (31.0-37.0); Mean Platelet Volume 7.9; Monocytes # (A) 0.5 k/uL (0-1.0); Monocytes % (A) 7 %; Neutrophils # (A) 2.8 k/uL (1.3-7.7); Neutrophils % (A) 39 %; Platelet Count 212 k/uL (150-450); RBC 4.29 m/uL (4.30-5.90); RDW 13.4 % (11.5-15.5); WBC 7.2 k/uL (3.8-10.6)
[2020-11-13 03:06] LABS: Partial Thromboplastin Time 23.5 sec (22.0-30.0); Prothrombin Time 10.7 sec (9.0-12.0)
[2020-11-13 03:16] LABS: Lactic Acid, Venous 0.9 mmol/L (0.7-2.0)
[2020-11-13 03:18] LABS: ALT 15 U/L (4-49); AST 28 U/L (17-59); African American GFR (CKD) >90 (>60 ml/min/1.73 sqM); Albumin 4.1 g/dL (3.5-5.0); Alcohol <10 mg/dL; Alkaline Phosphatase 57 U/L (38-126); Anion Gap 5 mmol/L; Blood Urea Nitrogen 24 mg/dL (9-20); Calcium 9.6 mg/dL (8.4-10.2); Carbon Dioxide 28 mmol/L (22-30); Chloride 104 mmol/L (98-107); Creatine Kinase 105 U/L (55-170); Glucose 101 mg/dL (74-99); Magnesium 1.9 mg/dL (1.6-2.3); Non-African American GFR(CKD) >90 (>60 ml/min/1.73 sqM); Phosphorus 3.2 mg/dL (2.5-4.5); Potassium 4.7 mmol/L (3.5-5.1); Sodium 137 mmol/L (137-145); Total Bilirubin <0.1 mg/dL (0.2-1.3)
--- NOTE | 2020-11-13 03:27 | CT ---
EXAMINATION TYPE: CT angio chest DATE OF EXAM: 11/13/2020 COMPARISON: None HISTORY: Chest pain. no prior on PAC CT DLP: 265.2 mGycm Automated exposure control for dose reduction was used. CONTRAST: Performed with IV Contrast, patient injected with 80ml used. 20ml wasted mL of Isovue 370. There are 3-D post processed images. Heart is normal. There is no pericardial effusion. There are no hilar masses. There is no mediastinal adenopathy. Ascending aorta measures 3.6 cm. There is no dissection. There is normal contrast opacification of the pulmonary arteries. There are no filling defects. Upper abdominal soft tissues are intact. Thoracic spine is intact. There is no compression fracture. There is mild increased reticular interstitial density in both lungs. There is no pleural effusion or pneumothorax. IMPRESSION: No evidence of pulmonary embolism. Mild pulmonary interstitial infiltrates mainly at the lung bases.
[2020-11-13 03:38] LABS: Troponin I <0.012 ng/mL (0.000-0.034)
[2020-11-13] MEDS ORDERED: HYDROmorphone 1 MG/ML 1 ML SYRINGE IVP STA (03:47)
[2020-11-13] MEDS ORDERED: ONDANSETRON 4 MG/2 ML VIAL IVP PRN (03:47)
[2020-11-13] MEDS ORDERED: NALOXONE 0.4 MG/ML 1 ML VIAL IV PRN (03:47)
[2020-11-13] MEDS ORDERED: MORPHINE SULFATE 4 MG/ML SYRINGE IV PRN (03:47)
[2020-11-13 05:20] VITALS: TEMP 98.4
[2020-11-13 06:11] LABS: Appearance,Urine Clear (Clear); Bilirubin,Urine Negative (Negative); Blood,Urine Negative (Negative); Color,Urine Light Yellow; Glucose,Urine (UA) Negative (Negative); Ketones,Urine Negative (Negative); Leukocyte Esterase,Urine Trace (Negative); Nitrite,Urine Negative (Negative); Protein,Urine Negative (Negative); RBC,Urine 2 /hpf (0-5); Specific Gravity,Urine 1.039 (1.001-1.035); Urobilinogen,Urine <2.0 mg/dL (<2.0); WBC,Urine 7 /hpf (0-5)
[2020-11-13 07:49] VITALS: BP 167/101; PULSE 77; RESP 16
[2020-11-13] MEDS ORDERED: PANTOPRAZOLE 40 MG/10 ML VIAL IV SCH (09:00)
== END 2020-11-13 08:45 | disposition left against medical advice (07) ==
LOC: EC 02:09 → 6NMEDSUR 03:47
PROVIDERS: ADMIT Internal Medicine Geriatric Medicine; ATTEND Internal Medicine Geriatric Medicine
DX: R10.13 Epigastric pain (principal); R07.2 Precordial pain; R00.2 Palpitations; F41.9 Anxiety disorder, unspecified; R06.00 Dyspnea, unspecified; F17.200 Nicotine dependence, unspecified, uncomplicated; Z53.21 Procedure and treatment not carried out due to patient leaving prior to being seen by health care provider; B19.20 Unspecified viral hepatitis C without hepatic coma; F32.9 Major depressive disorder, single episode, unspecified; M19.90 Unspecified osteoarthritis, unspecified site; G89.29 Other chronic pain; M54.9 Dorsalgia, unspecified; M54.2 Cervicalgia; K40.90 Unilateral inguinal hernia, without obstruction or gangrene, not specified as recurrent; G40.909 Epilepsy, unspecified, not intractable, without status epilepticus; Z88.8 Allergy status to other drugs, medicaments and biological substances; Z80.0 Family history of malignant neoplasm of digestive organs; Z80.1 Family history of malignant neoplasm of trachea, bronchus and lung
CPT/HCPCS: 96375; 96374; 99285; 36415; 93005; 83880; 80053; 82140; 82550; 82553; 83605; 83735; 84100; 84443; 84484; 85025; 85610; 85730; 81001; 71275; G0378; G0480; J2270; J1170; C9113; Q9967; 80320

== ENCOUNTER 2020-11-14 23:45 | Observation (INO) | payer MEDICARE, OTHER ==
[2020-11-14] MEDS ORDERED: LORazepam 2 MG/ML INJ IV STA (23:57)
[2020-11-14] MEDS ORDERED: SODIUM CHLORIDE 0.9% 1,000 ML IV STA (23:57)
--- NOTE | 2020-11-14 23:57 | ED ---
Chest Pain HPI - General Chief Complaint: Chest Pain Stated Complaint: Chest Pain Time Seen by Provider: 11/14/20 23:46 Source: patient, EMS, RN notes reviewed, old records reviewed Mode of arrival: EMS Limitations: no limitations - History of Present Illness Initial Comments: This is a 54-year-old male who is seeing the ER earlier this weekend for similar symptoms. Patient states the left as he had a panic attack for evaluation in diet. Patient presents today with persistent chest pain as well as severe anxiety. Patient has persistent chest pain here in the ER no significant shortness of breath per patient is otherwise without new symptoms. No fevers. No cough or congestion. No recent travel history or sick contacts. Patient states the pain is similar will presented him to the emergency department a few days ago MD Complaint: chest pain -: days(s) Onset: during rest, during exertion Pain Location: substernal Pain Radiation: none Severity: moderate Severity scale (1-10): 5 Quality: tightness Consistency: intermittent Improves With: nothing Worsens With: nothing Anginal Symptoms: nausea, sense of impending doom Other Symptoms: palpitations Treatments Prior to Arrival: none - Related Data Home Medications Medication Instructions Recorded Confirmed HYDROcodone/APAP 5-325MG [[place] 1 tab PO DAILY PRN 01/17/17 04/01/19 5-325] traMADol HCl [Ultram] 50 mg PO TID PRN 01/17/17 04/01/19 Previous Rx's Medication Instructions Recorded Amoxicillin/Potassium Clav 1 each PO Q12HR 10 Days #20 tab 10/21/19 [Augmentin 875-125 Tablet] Allergies Allergy/AdvReac Type Severity Reaction Status Date / Time diphenhydramine HCl Allergy Unknown Verified 04/30/20 03:44 [From Benadryl] Review of Systems ROS Statement: Those systems with pertinent positive or pertinent negative responses have been documented in the HPI. ROS Other: All systems not noted in ROS Statement are negative. EKG Findings - EKG Comments: EKG Findings:: EKG is sinus 69 [place] 122 QRS 4 QTC 420 Past Medical History Past Medical History: Osteoarthritis (OA), Seizure Disorder Additional Past Medical History / Comment(s): epilepsy, chronic back/neck pain, hepatitis C History of Any Multi-Drug Resistant Organisms: None Reported Past Surgical History: Hernia Repair Additional Past Surgical History / Comment(s): R inguinal hernia repair, L arm benign tumor excision. Past Anesthesia/Blood Transfusion Reactions: No Reported Reaction Past Psychological History: Anxiety, Depression Smoking Status: Current every day smoker Past Alcohol Use History: Occasional Past Drug Use History: Marijuana - Past Family History Father Family Medical History: Cancer Additional Family Medical History / Comment(s): lung/liver cancer. He is . Mother Family Medical History: Cancer Additional Family Medical History / Comment(s): Mother of lung cancer. She was a smoker. General Exam General appearance: alert, in no apparent distress, anxious Head exam: Present: atraumatic, normocephalic, normal inspection Eye exam: Present: normal appearance, PERRL, EOMI. Absent: scleral icterus, conjunctival injection, periorbital swelling ENT exam: Present: normal exam, mucous membranes moist Neck exam: Present: normal inspection. Absent: tenderness, meningismus, lymphadenopathy Respiratory exam: Present: normal lung sounds bilaterally. Absent: respiratory distress, wheezes, rales, rhonchi, stridor Cardiovascular Exam: Present: regular rate, normal rhythm, normal heart sounds. Absent: systolic murmur, diastolic murmur, rubs, gallop, clicks GI/Abdominal exam: Present: soft, normal bowel sounds. Absent: distended, tenderness, guarding, rebound, rigid Extremities exam: Present: normal inspection, full ROM, normal capillary refill. Absent: tenderness, pedal edema, joint swelling, calf tenderness Back exam: Present: normal inspection Neurological exam: Present: alert, oriented X3, CN II-XII intact Psychiatric exam: Present: normal affect, normal mood Skin exam: Present: warm, dry, intact, normal color. Absent: rash Course Vital Signs 11/14/20 23:52 Temperature 98.5 F Pulse Rate 76 Respiratory 18 Rate Blood Pressure 153/88 O2 Sat by Pulse 97 Oximetry - Reevaluation(s) Reevaluation #1: 11/15/20 01:02 Medical records reviewed 11/15/20 01:02 Prior ER visit and hospitalization have been reviewed Reevaluation #2: 11/15/20 01:02 Patient still having chest pain and severe, anxiety here in the ER Reevaluation #3: 11/15/20 01:02 spoke patient regarding findings, questions answered - Consultations Consultation #1: Craig Pate who agrees to admit patient Chest Pain MDM - MDM 54 male presents today for evaluation of chest pain. Patient be admitted for chest pain observation Disposition Clinical Impression: Chest pain, Panic attack Disposition: ADMITTED IP TO THIS HOSP Condition: Fair Is patient prescribed a controlled substance at d/c from ED?: No Referrals: [facility] [Primary Care Provider] - 1-2 days
[2020-11-15 00:21] LABS: Basophils # (A) 0.1 k/uL (0-0.2); Basophils % (A) 1 %; Eosinophils # (A) 0.3 k/uL (0-0.7); Eosinophils % (A) 4 %; HCT 40.9 % (39.0-53.0); HGB 13.6 gm/dL (13.0-17.5); Lymphocytes % (A) 47 %; MCH 30.9 pg (25.0-35.0); MCHC 33.2 g/dL (31.0-37.0); MCV 93.1 fL (80.0-100.0); Mean Platelet Volume 7.8; Monocytes # (A) 0.4 k/uL (0-1.0); Monocytes % (A) 6 %; Neutrophils # (A) 2.5 k/uL (1.3-7.7); Neutrophils % (A) 39 %; Platelet Count 240 k/uL (150-450); RDW 13.1 % (11.5-15.5); WBC 6.5 k/uL (3.8-10.6)
[2020-11-15] MEDS ORDERED: MORPHINE SULFATE 4 MG/ML SYRINGE IVP STA (00:21)
[2020-11-15 00:30] LABS: ALT 14 U/L (4-49); AST 26 U/L (17-59); African American GFR (CKD) >90 (>60 ml/min/1.73 sqM); Albumin 3.9 g/dL (3.5-5.0); Alkaline Phosphatase 48 U/L (38-126); Anion Gap 5 mmol/L; Blood Urea Nitrogen 14 mg/dL (9-20); Calcium 9.3 mg/dL (8.4-10.2); Carbon Dioxide 29 mmol/L (22-30); Chloride 105 mmol/L (98-107); Glucose 124 mg/dL (74-99); Lipase 67 U/L (23-300); Magnesium 1.9 mg/dL (1.6-2.3); Non-African American GFR(CKD) >90 (>60 ml/min/1.73 sqM); Potassium 4.3 mmol/L (3.5-5.1); Sodium 139 mmol/L (137-145); Total Bilirubin 0.1 mg/dL (0.2-1.3); Total Protein 6.9 g/dL (6.3-8.2)
[2020-11-15 00:32] LABS: Partial Thromboplastin Time 24.3 sec (22.0-30.0); Prothrombin Time 10.9 sec (9.0-12.0)
[2020-11-15] MEDS ORDERED: ASPIRIN 81 MG PO STA (01:00)
[2020-11-15] MEDS ORDERED: NITROGLYCERIN SL TABS 0.4 MG TAB SUBLINGUAL PRN (01:00)
[2020-11-15] MEDS: SODIUM CHLORIDE 0.9% 1,000 ML IV SCH ×3 (01:42→21:20)
[2020-11-15] MEDS ORDERED: HYDROmorphone 1 MG/ML 1 ML SYRINGE IVP STA (02:09)
[2020-11-15] MEDS ORDERED: NICOTINE 21MG/24HR PATCH TRANSDERM STA (04:25)
[2020-11-15] MEDS: MORPHINE SULFATE 4 MG/ML SYRINGE IVP PRN ×4 (05:17→22:32)
[2020-11-15] MEDS: LORazepam 2 MG/ML INJ IV PRN ×2 (05:21→21:45)
[2020-11-15] MEDS: NICOTINE 21MG/24HR PATCH TRANSDERM SCH (07:19)
--- NOTE | 2020-11-15 10:02 | P.CRDCN ---
History of Present Illness History of present illness: HISTORY OF PRESENTING ILLNESS This is a pleasant 54-year-old male past medical history significant for arthritis, hepatitis C, seizure disorder and chronic nicotine dependence. He denies prior history of coronary artery disease and does not follow with a rolled ham lacer for any reason. We have been asked to see in consultation for chest pain. He states for the previous one week he has been experiencing chest discomfort in the midsternal region described as a feeling of a metal bar pushing through his chest to his back. Symptoms have mostly been intermittent until the previous 24 hours when they have been constant. He said if he gets up and walks around it seems to intensify. It is associated with some nausea intermittently. He has no associated shortness of breath, dizziness or palpitations. His pain is nonreproducible on exam with palpation or deep inspiration. DIAGNOSTICS EKG reveals sinus mechanism with incomplete right bundle branch block 2 with underlying LVH and nonspecific abnormalities. CTA of the chest performed as an outpatient 2 days ago was negative for pulmonary embolism. Laboratory reviewed, cardiac enzymes negative. He takes no daily cardiac medications. REVIEW OF SYSTEMS At the time of my exam: CONSTITUTIONAL: Denies fever or chills. CARDIOVASCULAR: Denies chest pain, shortness of breath, orthopnea, PND or palpitations. RESPIRATORY: Denies cough. GASTROINTESTINAL: Denies abdominal pain, diarrhea, constipation, nausea or vomiting. MUSCULOSKELETAL: Denies myalgias. NEUROLOGIC: Denies numbness, tingling, headacbe or weakness. ENDOCRINE: Denies fatigue, weight change, polydipsia or polyurina. GENITOURINARY: Denies burning, hematuria or urgency with micturation. HEMATOLOGIC: Denies history of anemia or bleeding. PHYSICAL EXAMINATION Vital signs reviewed. CONSTITUTIONAL: No apparent distress. HEENT: Head is normocephalic. Pupils are equal, round. Sclerae anicteric. Mucous membranes of the mouth are moist. No JVD. No carotid bruit. CHEST EXAMINATION: Lungs are clear to auscultation. No chest wall tenderness is noted on palpation or with deep breathing. HEART EXAMINATION: Regular rate and rhythm. S1, S2 heard. Positive S4. No murmurs, gallops or rub. ABDOMEN: Soft, nontender. Positive bowel sounds. EXTREMITIES: 2+ peripheral pulses, no lower extremity edema and no calf tenderness. NEUROLOGIC EXAMINATION: Patient is awake, alert and oriented x3. ASSESSMENT Chest pain Chronic nicotine dependence PLAN An acute coronary event has been ruled out. Pain seems mostly atypical in nature however given his description of worsened with walking we will proceed with stress echocardiogram to assess for stress- induced cardiac ischemia. If stress test is normal he may be discharged from a cardiac perspective. Recommend smoking cessation. Thank you kindly for this consultation. Nurse Practitioner note has been reviewed, I agree with a documented findings and plan of care. Patient was seen and examined. Past Medical History Past Medical History: Osteoarthritis (OA), Seizure Disorder Additional Past Medical History / Comment(s): epilepsy, chronic back/neck pain, hepatitis C History of Any Multi-Drug Resistant Organisms: None Reported Past Surgical History: Hernia Repair Additional Past Surgical History / Comment(s): R inguinal hernia repair, L arm benign tumor excision. Past Anesthesia/Blood Transfusion Reactions: No Reported Reaction Past Psychological History: Anxiety, Depression Smoking Status: Current every day smoker Past Alcohol Use History: Occasional Past Drug Use History: Marijuana - Past Family History Father Family Medical History: Cancer Additional Family Medical History / Comment(s): lung/liver cancer. He is . Mother Family Medical History: Cancer Additional Family Medical History / Comment(s): Mother of lung cancer. She was a smoker. Medications and Allergies Home Medications Medication Instructions Recorded Confirmed Type Ibuprofen [Motrin Ib] 400 mg PO Q8H PRN 11/15/20 11/15/20 History Allergies Allergy/AdvReac Type Severity Reaction Status Date / Time diphenhydramine HCl Allergy Unknown Verified 11/15/20 06:48 [From Benadryl] Physical Exam Vitals: Vital Signs Temp Pulse Resp BP Pulse Ox 11/15/20 07:25 86 16 148/79 99 11/15/20 04:00 81 17 149/88 99 11/15/20 01:07 68 18 150/96 98 11/14/20 23:52 98.5 F 76 18 153/88 97 Intake and Output 11/14/20 11/15/20 11/15/20 22:59 06:59 14:59 Other: Weight 56.699 kg Results 11/15/20 00:12 11/15/20 00:12 Cardiac Enzymes 11/15/20 11/15/20 11/15/20 Range/Units 00:12 00:12 03:34 AST 26 (17-59) U/L Troponin I <0.012 <0.012 (0.000-0.034) ng/mL 11/15/20 Range/Units 06:33 AST (17-59) U/L Troponin I <0.012 (0.000-0.034) ng/mL Coagulation 11/15/20 Range/Units 00:12 PT 10.9 (9.0-12.0) sec APTT 24.3 (22.0-30.0) sec CBC 11/15/20 Range/Units 00:12 WBC 6.5 (3.8-10.6) k/uL RBC 4.40 (4.30-5.90) m/uL Hgb 13.6 (13.0-17.5) gm/dL Hct 40.9 (39.0-53.0) % Plt Count 240 (150-450) k/uL Comprehensive Metabolic Panel 11/15/20 Range/Units 00:12 Sodium 139 (137-145) mmol/L Potassium 4.3 (3.5-5.1) mmol/L Chloride 105 (98-107) mmol/L Carbon Dioxide 29 (22-30) mmol/L BUN 14 (9-20) mg/dL Creatinine 0.78 (0.66-1.25) mg/dL Glucose 124 H (74-99) mg/dL Calcium 9.3 (8.4-10.2) mg/dL AST 26 (17-59) U/L ALT 14 (4-49) U/L Alkaline Phosphatase 48 (38-126) U/L Total Protein 6.9 (6.3-8.2) g/dL Albumin 3.9 (3.5-5.0) g/dL Current Medications Generic Name Dose Route Start Last Admin Trade Name Freq PRN Reason Stop Dose Admin Aspirin 325 mg 11/16/20 09:00 Aspirin 325 Mg Tab PO DAILY BRAXTON Hydromorphone HCl 1 mg 11/15/20 02:09 Hydromorphone 1 Mg/Ml 1 Ml Syringe IVP Q4HR PRN Pain Sodium Chloride 1,000 mls @ 100 mls/hr 11/14/20 23:57 11/15/20 00:10 Saline 0.9% IV 11/15/20 09:56 100 mls/hr .Q10H STA Administration Sodium Chloride 1,000 mls @ 100 mls/hr 11/15/20 01:00 11/15/20 01:42 Saline 0.9% IV Not Given .Q10H BRAXTON Lorazepam 1 mg 11/15/20 01:03 11/15/20 05:21 Lorazepam 2 Mg/Ml Inj IV 1 mg Q4HR PRN Administration Anxiety Morphine Sulfate 4 mg 11/15/20 00:00 11/15/20 05:17 Morphine Sulfate 4 Mg/Ml Syringe IVP 4 mg Q4HR PRN Administration Pain Nicotine 1 patch 11/15/20 09:00 11/15/20 07:19 Nicotine 21mg/24hr Patch TRANSDERM Not Given DAILY BRAXTON Nitroglycerin 0.4 mg 11/15/20 01:00 Nitroglycerin Sl Tabs 0.4 Mg Tab SUBLINGUAL Q5M PRN Chest Pain Intake and Output 11/14/20 11/15/20 11/15/20 22:59 06:59 14:59 Other: Weight 56.699 kg 11/15/20 00:12 11/15/20 00:12
[2020-11-15] MEDS: HYDROmorphone 1 MG/ML 1 ML SYRINGE IVP PRN ×4 (11:42→23:37)
--- NOTE | 2020-11-15 13:11 | P.HPIM ---
History of Present Illness H&P Date: 11/15/20 HISTORY AND PHYSICAL AND DISCHARGE SUMMARY: HISTORY OF PRESENT ILLNESS This is a 54-year-old male patient of [facility] with past medical history of seizure disorder but not on medication, chronic neck and back pain, hepatitis C, generalized anxiety disorder, recurrent depression, history of alcohol abuse, tobacco use and dependence. Patient states he had onset of chest pain when he was walking has been going on and off for days. He denies having seen a cop winder in the past. He does not think he is followed with the [facility] clinic for at least 2 years. He states the pain was across his chest. He denies any difficulty breathing he denies any worsening of pain with deep breath. He has occasional nausea. No shortness of breath. No lightheadedness or dizziness. Patient presented to medical report in Hospital emergency center for evaluation. EKG was a sinus rhythm with incomplete right bundle branch block with LVH. CTA of the chest was negative for pulmonary embolism. Cardiac enzymes were negative on 3 draws. CBC was within normal limits. INR 1. D-dimer 0.4. Electrolytes and renal function normal. Blood sugar 124. Patient does not have history of diabetes. Total bilirubin 0.1 otherwise liver function tests are normal. Lipase 67. Patient is seen today in the emergency center. Cardiology is on consult and scheduled patient for stress test. REVIEW OF SYSTEMS Constitutional: No fever, no chills, no night sweats. No weight change. No weakness, fatigue or lethargy. No daytime sleepiness. EENT: No headache. No blurred vision or double vision, no loss of vision. No loss of Hearing, no ringing in the ears, no dizziness. No nasal drainage or congestion. No epistaxis. No sore throat. Lungs: No shortness of breath, cough, no sputum production. No wheezing. Cardiovascular: Reports chest pain, no lower extremity edema. No palpitations. No paroxysmal nocturnal dyspnea. No orthopnea. No lightheadedness or dizziness. No syncopal episodes. Abdominal: No abdominal pain. No nausea, vomiting. No diarrhea. No constipation. No bloody or tarry stools.. No loss of appetite. Genitourinary: No dysuria, increased frequency, urgency. No urinary retention. Musculoskeletal: No myalgias. No muscle weakness, no gait dysfunction, no frequent falls. No back pain. No neck pain. Integumentary: No wounds, no lesions. No rash or pruritus. No unusual bruising. No change in hair or nails. Neurologic: No aphasia. No facial droop. No change in mentation. No head injury. No headache. No paralysis. No paresthesia. Psychiatric: No depression. Reports anxiety. No mood swings. Endocrine: No abnormal blood sugars. No weight change. No excessive sweating or thirst. No cold intolerance. SOCIAL HISTORY Patient has history of alcohol abuse and quit drinking in April 2018. He does smoke 3-5 cigarettes per day and has been a smoker for 42 years. He smokes marijuana occasionally. Patient lives alone, he does not drive. He walks drives or uses a For transportation. He he is single. FAMILY HISTORY He denies history of coronary artery disease and his parents. He denies any coronary artery disease in his siblings. He does not have any children. PHYSICAL EXAMINATION Gen: This is a thin 54-year-old male. He is seen today in the emergency center. He is ambulating in his room without any difficulty. He appears to be in no acute distress. He does appear to be anxious. HEENT: Head is atraumatic, normocephalic. Pupils equal, round. Sclerae is anicteric. NECK: Supple. No JVD. No lymphadenopathy. No thyromegaly. LUNGS: Clear to auscultation. No wheezes or rhonchi. No intercostal retractions. HEART: Regular rate and rhythm. No murmur. ABDOMEN: Soft. Bowel sounds are present. No masses. No tenderness. EXTREMITIES: No pedal edema. No calf tenderness. Dorsalis pedis +2 bilaterally. NEUROLOGICAL: Patient is awake, alert and oriented x3. Cranial nerves 2 through 12 are grossly intact. ASSESSMENT AND PLAN 1. Chest pain. Acute coronary syndrome ruled out. Cardiology consult appreciated. 2. Tobacco use and dependence. Smoking cessation. 3. Generalized anxiety disorder. 4. Recurrent depression. 5. Chronic neck and back pain. 6. History of seizure disorder. Patient placed as an observation status. DISCHARGE PLAN HOme. Impression and plan of care have been directed as dictated by the signing ph ysician. Marni Aggarwal nurse practitioner acting as scribe for signing physician. Past Medical History Past Medical History: Osteoarthritis (OA), Seizure Disorder Additional Past Medical History / Comment(s): epilepsy, chronic back/neck pain, hepatitis C History of Any Multi-Drug Resistant Organisms: None Reported Past Surgical History: Hernia Repair Additional Past Surgical History / Comment(s): R inguinal hernia repair, L arm benign tumor excision. Past Anesthesia/Blood Transfusion Reactions: No Reported Reaction Past Psychological History: Anxiety, Depression Smoking Status: Current every day smoker Past Alcohol Use History: Occasional Past Drug Use History: Marijuana - Past Family History Father Family Medical History: Cancer Additional Family Medical History / Comment(s): lung/liver cancer. He is . Mother Family Medical History: Cancer Additional Family Medical History / Comment(s): Mother of lung cancer. She was a smoker. Medications and Allergies Home Medications Medication Instructions Recorded Confirmed Type Ibuprofen [Motrin Ib] 400 mg PO Q8H PRN 11/15/20 11/15/20 History Allergies Allergy/AdvReac Type Severity Reaction Status Date / Time diphenhydramine HCl Allergy Unknown Verified 11/15/20 06:48 [From Benadryl] Physical Exam Vitals: Vital Signs Temp Pulse Resp BP Pulse Ox 11/15/20 07:25 86 16 148/79 99 11/15/20 04:00 81 17 149/88 99 11/15/20 01:07 68 18 150/96 98 11/14/20 23:52 98.5 F 76 18 153/88 97 Intake and Output 11/14/20 11/15/20 11/15/20 22:59 06:59 14:59 Other: Weight 56.699 kg Results CBC & Chem 7: 11/15/20 00:12 11/15/20 00:12 Labs: Abnormal Lab Results - Last 24 Hours (Table) 11/15/20 Range/Units 00:12 Glucose 124 H (74-99) mg/dL Total Bilirubin 0.1 L (0.2-1.3) mg/dL
--- NOTE | 2020-11-15 17:49 | P.STRESS ---
- Stress Test Note Stress Test Results/Findings: Exam Performed: stress echo exercise Exam Date: 11/15/20 Reason for Exam: Chest pain Height: 5 ft 8 in Weight: 56.699 kg Protocol: [place] Stage: II Duration of Exercise: 6:28 Resting Heart Rate: 59 Resting Blood Pressure: 153/94 Maximum Achieved Heart Rate: 134 Maximum Achieved Blood Pressure: 212/94 85% PMHR: 140 100% PMHR: 165 METS: 7.2 Technologist Comment: Stress Test Results/Findings: Baseline heart rate 59 beats a minute, Baseline blood pressure 153/94 mmHg Patient exercised on a Milan protocol for 6-1/2 minutes achieving a peak 100-134 beats a minute ECG was uninterpretable on account of LV lead baseline with significant artifact PVCs noted during this exercise stress test No nonsustained ventricular tachycardia Baseline 2-D echo images showed normal LV systolic function without segmental wall motion abnormalities @Peak exercise there was augmentation overall LV contractility. No wall motion amenities [facility] LV systolic function with normal Impression No definite ECG changes of ischemia ischemia but there was a significant amount of baseline artifact through the stress test Mild augmentation of overall LV contractility at peak exercise. No wall motion amenities [facility] LV systolic function within normal PVCs with exercise
[2020-11-15] MEDS ORDERED: amLODIPine 5 MG TAB PO STA (20:24)
[2020-11-16] MEDS: MORPHINE SULFATE 4 MG/ML SYRINGE IVP PRN (04:41)
[2020-11-16 04:42] VITALS: RESP 16
[2020-11-16] MEDS: LORazepam 2 MG/ML INJ IV PRN (05:05)
[2020-11-16] MEDS ORDERED: hydroCHLOROthiazide 25 MG TAB PO ONE (05:56)
[2020-11-16] MEDS ORDERED: hydrALAZINE HCL 20 MG/ML 1 ML VIAL IVP PRN (05:57)
[2020-11-16] MEDS: SODIUM CHLORIDE 0.9% 1,000 ML IV SCH (07:26)
[2020-11-16] MEDS: HYDROmorphone 1 MG/ML 1 ML SYRINGE IVP PRN (07:40)
[2020-11-16] MEDS: NICOTINE 21MG/24HR PATCH TRANSDERM SCH (07:40)
[2020-11-16 07:45] VITALS: BP 192/133; PULSE 112; TEMP 97.5
[2020-11-16] MEDS ORDERED: ASPIRIN 325 MG TAB PO SCH (09:00)
[2020-11-16 09:52] LABS: Chol/HDL Ratio 3.58; LDL Cholesterol,Calculated 108.6 mg/dL (0.0-131.0); VLDL Calculation 15.4 mg/dL (5.00-40.00)
--- NOTE | 2020-11-16 15:09 | P.DS ---
Providers Date of admission: 11/15/20 01:00 Expected date of discharge: 11/16/20 Attending physician: Donte Pate Consults: 11/15/20 01:00 Consult Physician Urgent Consulting Provider: Simran Littlejohn Consult Reason/Comments: cp Do you want consulting provider notified?: Yes Primary care physician: [facility] Course: HISTORY OF PRESENT ILLNESS This is a 54-year-old male [facility] with past medical history of seizure disorder but not on medication, chronic neck and back pain, hepatitis C, generalized anxiety disorder, recurrent depression, history of alcohol abuse, tobacco use and dependence. Patient states he had onset of chest pain when he was walking has been going on and off for days. 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 He does not think he is followed with the [facility]'s clinic for at least 2 years. He states the pain was across his chest. He denies any difficulty breathing he denies any worsening of pain with deep breath. He has occasional nausea. No shortness of breath. No lightheadedness or dizziness. Patient presented to medical report in Hospital emergency center for evaluation. EKG was a sinus rhythm with incomplete right bundle branch block with LVH. CTA of the chest was negative for pulmonary embolism. Cardiac enzymes were negative on 3 draws. CBC was within normal limits. INR 1. D-dimer 0.4. Electrolytes and renal function normal. Blood sugar 124. Patient does not have history of diabetes. Total bilirubin 0.1 otherwise liver function tests are normal. Lipase 67. Patient is seen today in the emergency center. Cardiology is on consult and scheduled patient for stress test. 11/16: Patient underwent stress test which was negative yesterday but patient had ongoing complaints about anxiety although he denies having anxiety and also high blood pressure readings. Multiple medication changes have been made. Patient has been refusing care and sometimes refusing medications. He has been demanding Dilaudid and Ativan which was ordered by the ER physician. Patient will be discharged home today in stable condition. He has been instructed to follow-up with [facility] ASSESSMENT AND PLAN 1. Chest pain. Acute coronary syndrome ruled out. 2. Tobacco use and dependence. Smoking cessation. 3. Generalized anxiety disorder. 4. Recurrent depression. 5. Chronic neck and back pain. 6. History of seizure disorder. DISCHARGE PLAN HOme. Impression and plan of care have been directed as dictated by the signing physician. Marni Aggarwal nurse practitioner acting as scribe for signing physician. Patient Condition at Discharge: Good Plan - Discharge Summary New Discharge Prescriptions: New Nicotine 21Mg/24Hr Patch [Habitrol] 1 patch TRANSDERM DAILY #30 patch busPIRone HCl [Buspar] 5 mg PO TID #90 tab hydrALAZINE HCL [Apresoline] 25 mg PO TID #90 tab hydroCHLOROthiazide [Hydrodiuril] 25 mg PO DAILY #30 tab amLODIPine [Norvasc] 5 mg PO DAILY #30 tab Continue Ibuprofen [Motrin Ib] 400 mg PO Q8H PRN PRN Reason: Pain Or Fever > 100.5 Discharge Medication List Ibuprofen [Motrin Ib] 400 mg PO Q8H PRN 11/15/20 [History] Nicotine 21Mg/24Hr Patch [Habitrol] 1 patch TRANSDERM DAILY #30 patch 11/15/20 [Rx] amLODIPine [Norvasc] 5 mg PO DAILY #30 tab 11/16/20 [Rx] busPIRone HCl [Buspar] 5 mg PO TID #90 tab 11/16/20 [Rx] hydrALAZINE HCL [Apresoline] 25 mg PO TID #90 tab 11/16/20 [Rx] hydroCHLOROthiazide [Hydrodiuril] 25 mg PO DAILY #30 tab 11/16/20 [Rx] Follow up Appointment(s)/Referral[facility]): [facility] - 3 Days Activity/Diet/Wound Care/Special Instructions: activity as tolerated heart healthy diet Discharge Disposition: HOME SELF-CARE
== END 2020-11-16 10:16 | disposition home or self-care (01) ==
LOC: EC 23:45 → 6NMEDSUR 11-15 01:00
PROVIDERS: ADMIT Internal Medicine Geriatric Medicine; ATTEND Internal Medicine Geriatric Medicine
DX: R07.89 Other chest pain (principal); F17.210 Nicotine dependence, cigarettes, uncomplicated; F41.1 Generalized anxiety disorder; F33.9 Major depressive disorder, recurrent, unspecified; R00.2 Palpitations; R11.0 Nausea; G89.29 Other chronic pain; M54.2 Cervicalgia; M54.9 Dorsalgia, unspecified; G40.909 Epilepsy, unspecified, not intractable, without status epilepticus; F12.90 Cannabis use, unspecified, uncomplicated; I45.10 Unspecified right bundle-branch block; B19.20 Unspecified viral hepatitis C without hepatic coma; Z86.59 Personal history of other mental and behavioral disorders; K40.90 Unilateral inguinal hernia, without obstruction or gangrene, not specified as recurrent; M19.90 Unspecified osteoarthritis, unspecified site; Z88.8 Allergy status to other drugs, medicaments and biological substances; Z80.0 Family history of malignant neoplasm of digestive organs; Z80.1 Family history of malignant neoplasm of trachea, bronchus and lung
CPT/HCPCS: 96376 ×3; 96361; 96374; 96375; 99285; 36415; 93005; 93351; 85379; 83880; 80061; 80053; 83690; 83735; 84484; 85025; 85610; 85730; G0378 ×2; S4990 ×2; J2060 ×2; J2270 ×2; J1170 ×2

== ENCOUNTER 2020-11-16 14:45 | Emergency (ER) | payer MEDICARE, OTHER ==
--- NOTE | 2020-11-16 15:01 | ED ---
General Adult HPI - General Source: patient, RN notes reviewed Mode of arrival: EMS Limitations: altered mental status <Tejas Gray - Last Filed: 11/16/20 15:00> <Angel Gastelum - Last Filed: 11/16/20 16:12> - General Stated complaint: Altered Mental Status Time Seen by Provider: 11/16/20 14:58 - History of Present Illness Initial comments: 54-year-old male presented emergency department via EMS for altered mental status. Patient's found to be very drowsy, minimally arousable. Patient was recently discharged for chest pain. Patient cannot give clear information this time. No history of IV drug use. Patient was found at a local store called upon by bystanders. (Tejas Gray) - Related Data Home Medications Medication Instructions Recorded Confirmed Ibuprofen [Motrin Ib] 400 mg PO Q8H PRN 11/15/20 11/15/20 Previous Rx's Medication Instructions Recorded Nicotine 21Mg/24Hr Patch [Habitrol] 1 patch TRANSDERM DAILY #30 patch 11/15/20 amLODIPine [Norvasc] 5 mg PO DAILY #30 tab 11/16/20 busPIRone HCl [Buspar] 5 mg PO TID #90 tab 11/16/20 hydrALAZINE HCL [Apresoline] 25 mg PO TID #90 tab 11/16/20 hydroCHLOROthiazide [Hydrodiuril] 25 mg PO DAILY #30 tab 11/16/20 Allergies Allergy/AdvReac Type Severity Reaction Status Date / Time diphenhydramine HCl Allergy Unknown Verified 11/16/20 14:59 [From Benadryl] Review of Systems ROS Other: All systems not noted in ROS Statement are negative. <Tejas Gray - Last Filed: 11/16/20 15:00> ROS Other: All systems not noted in ROS Statement are negative. <Angel Gastelum - Last Filed: 11/16/20 16:12> ROS Statement: Those systems with pertinent positive or pertinent negative responses have been documented in the HPI. Past Medical History Past Medical History: Osteoarthritis (OA), Seizure Disorder Additional Past Medical History / Comment(s): epilepsy, chronic back/neck pain, hepatitis C History of Any Multi-Drug Resistant Organisms: None Reported Past Surgical History: Hernia Repair Additional Past Surgical History / Comment(s): R inguinal hernia repair, L arm benign tumor excision. Past Anesthesia/Blood Transfusion Reactions: No Reported Reaction Past Psychological History: Anxiety, Depression Smoking Status: Current every day smoker Past Alcohol Use History: Occasional Past Drug Use History: Marijuana - Past Family History Father Family Medical History: Cancer Additional Family Medical History / Comment(s): lung/liver cancer. He is . Mother Family Medical History: Cancer Additional Family Medical History / Comment(s): Mother of lung cancer. She was a smoker. <Tejas Gray - Last Filed: 11/16/20 15:00> General Exam Limitations: altered mental status General appearance: in no apparent distress, lethargic Neck exam: Present: normal inspection. Absent: tenderness, meningismus, lymphadenopathy Respiratory exam: Present: normal lung sounds bilaterally. Absent: respiratory distress, wheezes, rales, rhonchi, stridor Cardiovascular Exam: Present: regular rate, normal rhythm, normal heart sounds. Absent: systolic murmur, diastolic murmur, rubs, gallop, clicks GI/Abdominal exam: Present: soft, normal bowel sounds. Absent: distended, tenderness, guarding, rebound, rigid Neurological exam: Absent: alert, oriented X3 <Tejas Gray - Last Filed: 11/16/20 15:00> Course <Tejas Gray - Last Filed: 11/16/20 15:00> Vital Signs 11/16/20 11/16/20 14:51 14:58 Temperature 97.8 F Pulse Rate 94 Respiratory 10 L 12 Rate Blood Pressure 171/97 O2 Sat by Pulse 95 Oximetry - Reevaluation(s) Reevaluation #1: 11/16/20 15:01 Patient was very drowsy, minimally arousable on arrival, shallow breathing Narcan was given patient merely arouse, questioning why he was here he states that he is given a rolled up cigarette by somebody at the store. (Tejas Gray) EKG Findings - EKG Comments: EKG Findings:: EKG showing sinus tachycardia with a rate of 130. There are no abnormal ST segment changes or T-wave inversions. QTC is 497. Other intervals appear normal. No ectopy. <Angel Gastelum - Last Filed: 11/16/20 16:12> Medical Decision Making - Lab Data Result diagrams: 11/16/20 15:12 11/16/20 15:12 <Angel Gastelum - Last Filed: 11/16/20 16:12> - Medical Decision Making Is a 54-year-old male who presents emergency department for somnolence. The patient was sonorous and somnolent on arrival. He was given 1 mg of Narcan with resolution of his symptoms. The patient was monitored in the ER for over an hour. He had returned mental status baseline. Blood work was obtained and unremarkable. UDS was positive for opiates. Patient was advised to make sure that he is not excepting anything from other people and to watch what he was ingesting. He was picked up by his brother who states that he will drive him home. The patient otherwise was requesting discharge. Patient currently stable for discharge to home and follow-up with his primary doctor. (Angel Gastelum) - Lab Data Lab Results 11/16/20 11/16/20 11/16/20 Range/Units 14:53 15:12 15:12 WBC 9.8 (3.8-10.6) k/uL RBC 4.61 (4.30-5.90) m/uL Hgb 14.5 (13.0-17.5) gm/dL Hct 42.6 (39.0-53.0) % MCV 92.3 (80.0-100.0) fL MCH 31.5 (25.0-35.0) pg MCHC 34.1 (31.0-37.0) g/dL RDW 13.2 (11.5-15.5) % Plt Count 313 (150-450) k/uL MPV 7.7 Neutrophils % 63 % Lymphocytes % 28 % Monocytes % 5 % Eosinophils % 1 % Basophils % 1 % Neutrophils # 6.2 (1.3-7.7) k/uL Lymphocytes # 2.8 (1.0-4.8) k/uL Monocytes # 0.4 (0-1.0) k/uL Eosinophils # 0.1 (0-0.7) k/uL Basophils # 0.1 (0-0.2) k/uL Sodium (137-145) mmol/L Potassium (3.5-5.1) mmol/L Chloride (98-107) mmol/L Carbon Dioxide (22-30) mmol/L Anion Gap mmol/L BUN (9-20) mg/dL Creatinine (0.66-1.25) mg/dL Est GFR (CKD-EPI)AfAm (>60 ml/min/1.73 sqM) Est GFR (CKD-EPI)NonAf (>60 ml/min/1.73 sqM) Glucose (74-99) mg/dL POC Glucose (mg/dL) 147 H (75-99) mg/dL POC Glu Modeling Analyst ID Alex Gomez Calcium (8.4-10.2) mg/dL Total Bilirubin (0.2-1.3) mg/dL AST (17-59) U/L ALT (4-49) U/L Alkaline Phosphatase (38-126) U/L Total Protein (6.3-8.2) g/dL Albumin (3.5-5.0) g/dL Urine Opiates Screen Detected H (NotDetected) Ur Oxycodone Screen Not Detected (NotDetected) Urine Methadone Screen Not Detected (NotDetected) Ur Propoxyphene Screen Not Detected (NotDetected) Ur Barbiturates Screen Not Detected (NotDetected) U Tricyclic Antidepress Not Detected (NotDetected) Ur Phencyclidine Scrn Not Detected (NotDetected) Ur Amphetamines Screen Not Detected (NotDetected) U Methamphetamines Scrn Not Detected (NotDetected) U Benzodiazepines Scrn Detected H (NotDetected) Urine Cocaine Screen Not Detected (NotDetected) U Marijuana (THC) Screen Detected H (NotDetected) Serum Alcohol mg/dL 11/16/20 Range/Units 15:12 WBC (3.8-10.6) k/uL RBC (4.30-5.90) m/uL Hgb (13.0-17.5) gm/dL Hct (39.0-53.0) % MCV (80.0-100.0) fL MCH (25.0-35.0) pg MCHC (31.0-37.0) g/dL RDW (11.5-15.5) % Plt Count (150-450) k/uL MPV Neutrophils % % Lymphocytes % % Monocytes % % Eosinophils % % Basophils % % Neutrophils # (1.3-7.7) k/uL Lymphocytes # (1.0-4.8) k/uL Monocytes # (0-1.0) k/uL Eosinophils # (0-0.7) k/uL Basophils # (0-0.2) k/uL Sodium 138 (137-145) mmol/L Potassium 4.1 (3.5-5.1) mmol/L Chloride 101 (98-107) mmol/L Carbon Dioxide 26 (22-30) mmol/L Anion Gap 11 mmol/L BUN 13 (9-20) mg/dL Creatinine 0.61 L (0.66-1.25) mg/dL Est GFR (CKD-EPI)AfAm >90 (>60 ml/min/1.73 sqM) Est GFR (CKD-EPI)NonAf >90 (>60 ml/min/1.73 sqM) Glucose 138 H (74-99) mg/dL POC Glucose (mg/dL) (75-99) mg/dL POC Glu Modeling Analyst ID Calcium 9.6 (8.4-10.2) mg/dL Total Bilirubin 0.2 (0.2-1.3) mg/dL AST 32 (17-59) U/L ALT 16 (4-49) U/L Alkaline Phosphatase 63 (38-126) U/L Total Protein 8.1 (6.3-8.2) g/dL Albumin 4.8 (3.5-5.0) g/dL Urine Opiates Screen (NotDetected) Ur Oxycodone Screen (NotDetected) Urine Methadone Screen (NotDetected) Ur Propoxyphene Screen (NotDetected) Ur Barbiturates Screen (NotDetected) U Tricyclic Antidepress (NotDetected) Ur Phencyclidine Scrn (NotDetected) Ur Amphetamines Screen (NotDetected) U Methamphetamines Scrn (NotDetected) U Benzodiazepines Scrn (NotDetected) Urine Cocaine Screen (NotDetected) U Marijuana (THC) Screen (NotDetected) Serum Alcohol <10 mg/dL Disposition <Tejas Gray - Last Filed: 11/16/20 15:00> Is patient prescribed a controlled substance at d/c from ED?: No <Angel Gastelum - Last Filed: 11/16/20 16:12> Clinical Impression: Opiate overdose Disposition: HOME SELF-CARE Condition: Stable Instructions (If sedation given, give patient instructions): Adult Overdose (ED) Referrals: [facility] [Primary Care Provider] - 1-2 days
[2020-11-16 15:02] LABS: Glucose,Whole Blood 147 mg/dL (75-99)
[2020-11-16] MEDS ORDERED: NALOXONE 0.4 MG/ML 1 ML VIAL IVP STA (15:03)
[2020-11-16] MEDS ORDERED: ONDANSETRON 4 MG/2 ML VIAL IVP STA (15:06)
[2020-11-16 15:33] LABS: Basophils # (A) 0.1 k/uL (0-0.2); Basophils % (A) 1 %; Eosinophils # (A) 0.1 k/uL (0-0.7); Eosinophils % (A) 1 %; HCT 42.6 % (39.0-53.0); HGB 14.5 gm/dL (13.0-17.5); Lymphocytes # (A) 2.8 k/uL (1.0-4.8); Lymphocytes % (A) 28 %; MCH 31.5 pg (25.0-35.0); MCHC 34.1 g/dL (31.0-37.0); MCV 92.3 fL (80.0-100.0); Mean Platelet Volume 7.7; Monocytes # (A) 0.4 k/uL (0-1.0); Monocytes % (A) 5 %; Neutrophils # (A) 6.2 k/uL (1.3-7.7); Neutrophils % (A) 63 %; Platelet Count 313 k/uL (150-450); RBC 4.61 m/uL (4.30-5.90); RDW 13.2 % (11.5-15.5); WBC 9.8 k/uL (3.8-10.6)
[2020-11-16 15:47] LABS: ALT 16 U/L (4-49); AST 32 U/L (17-59); African American GFR (CKD) >90 (>60 ml/min/1.73 sqM); Albumin 4.8 g/dL (3.5-5.0); Alcohol <10 mg/dL; Alkaline Phosphatase 63 U/L (38-126); Amphetamine Screen,Urine Not Detected (NotDetected); Anion Gap 11 mmol/L; Barbiturate Screen,Urine Not Detected (NotDetected); Benzodiazepines Screen,Urine Detected (NotDetected); Blood Urea Nitrogen 13 mg/dL (9-20); Calcium 9.6 mg/dL (8.4-10.2); Carbon Dioxide 26 mmol/L (22-30); Chloride 101 mmol/L (98-107); Cocaine Screen,Urine Not Detected (NotDetected); Glucose 138 mg/dL (74-99); Methadone Screen, Urine Not Detected (NotDetected); Non-African American GFR(CKD) >90 (>60 ml/min/1.73 sqM); Opiate Screen,Urine Detected (NotDetected); Oxycodone Screen, Urine Not Detected (NotDetected); Phencyclidine Screen,Urine Not Detected (NotDetected); Potassium 4.1 mmol/L (3.5-5.1); Sodium 138 mmol/L (137-145); Total Bilirubin 0.2 mg/dL (0.2-1.3); Total Protein 8.1 g/dL (6.3-8.2); Tricyclic Antidepressant,Urine Not Detected (NotDetected); Urn Cannabinoid Scrn Detected (NotDetected)
[2020-11-16 16:16] VITALS: BP 128/74; PULSE 68; RESP 16; TEMP 98.2
== END 2020-11-16 16:14 | disposition home or self-care (01) ==
LOC: EC 14:45
DX: T40.601A Poisoning by unspecified narcotics, accidental (unintentional), initial encounter (principal); F17.200 Nicotine dependence, unspecified, uncomplicated; M19.90 Unspecified osteoarthritis, unspecified site; Z79.899 Other long term (current) drug therapy; Z88.8 Allergy status to other drugs, medicaments and biological substances
CPT/HCPCS: 36415; 93005; 80053; 85025; 80306; 99285; 96374; 96375; G0480; J2310; J2405; 80320

== ENCOUNTER 2020-11-18 16:30 | Emergency (ER) | payer MEDICARE, OTHER ==
[2020-11-18 16:42] VITALS: RESP 18; TEMP 98.2
[2020-11-18] MEDS ORDERED: SODIUM CHLORIDE 0.9% 1,000 ML IV STA (17:21)
[2020-11-18] MEDS ORDERED: ONDANSETRON 4 MG/2 ML VIAL IVP STA (17:21)
[2020-11-18] MEDS ORDERED: MORPHINE SULFATE 4 MG/ML SYRINGE IV STA (17:21)
[2020-11-18] MEDS ORDERED: ASPIRIN 81 MG PO STA (17:21)
[2020-11-18 18:03] LABS: Basophils % (A) 1 %; Eosinophils # (A) 0.3 k/uL (0-0.7); Eosinophils % (A) 4 %; HCT 40.4 % (39.0-53.0); HGB 14.3 gm/dL (13.0-17.5); Lymphocytes % (A) 30 %; MCH 32.4 pg (25.0-35.0); MCHC 35.3 g/dL (31.0-37.0); MCV 91.9 fL (80.0-100.0); Mean Platelet Volume 7.8; Monocytes # (A) 0.5 k/uL (0-1.0); Monocytes % (A) 7 %; Neutrophils # (A) 3.6 k/uL (1.3-7.7); Neutrophils % (A) 56 %; Platelet Count 240 k/uL (150-450); RDW 12.8 % (11.5-15.5); WBC 6.5 k/uL (3.8-10.6)
--- NOTE | 2020-11-18 18:06 | XR ---
EXAMINATION TYPE: XR chest 1V portable DATE OF EXAM: 11/18/2020 COMPARISON: 07/25/2016 HISTORY: Smoker. Epilepsy. TECHNIQUE: Single view FINDINGS: Heart and mediastinum are normal. Lungs are clear. Diaphragm is normal. Bony thorax is inta ct. Pulmonary vascularity is normal. IMPRESSION: Normal chest. No change.
[2020-11-18 18:13] LABS: ALT 18 U/L (4-49); AST 40 U/L (17-59); African American GFR (CKD) >90 (>60 ml/min/1.73 sqM); Albumin 4.4 g/dL (3.5-5.0); Alkaline Phosphatase 58 U/L (38-126); Anion Gap 9 mmol/L; Blood Urea Nitrogen 30 mg/dL (9-20); Calcium 10.2 mg/dL (8.4-10.2); Carbon Dioxide 28 mmol/L (22-30); Chloride 101 mmol/L (98-107); Glucose 116 mg/dL (74-99); Lipase 95 U/L (23-300); Magnesium 1.9 mg/dL (1.6-2.3); Non-African American GFR(CKD) >90 (>60 ml/min/1.73 sqM); Sodium 138 mmol/L (137-145); Total Bilirubin 0.4 mg/dL (0.2-1.3); Total Protein 7.4 g/dL (6.3-8.2)
[2020-11-18 18:14] LABS: Potassium 4.4 mmol/L (3.5-5.1)
[2020-11-18 18:17] LABS: Partial Thromboplastin Time 21.4 sec (22.0-30.0); Prothrombin Time 10.5 sec (9.0-12.0)
--- NOTE | 2020-11-18 19:25 | ED ---
General Adult HPI - General Chief complaint: Nausea/Vomiting/Diarrhea Stated complaint: C/P abd. pain Time Seen by Provider: 11/18/20 16:46 Source: patient, EMS Mode of arrival: ambulatory Limitations: no limitations - History of Present Illness Initial comments: Patient is a 54-year-old male with past history of arthritis, epilepsy, hepatitis, chest pain who frequently presents emergency Department complaining of wide variety of symptoms, usually chest pain, nausea and vomiting, once again presents today for chest pain nausea and vomiting. He states that he believes it may be related to his anxiety. He is describing a substernal chest pain asso ciated with epigastric abdominal discomfort. He states he feels nauseous but does not express any episodes of recent emesis. States this is a chronic issue for him. States that the chest pain however today it is slightly worse than normal. He describes a sharp sensation that does not radiate. It is not associated with any provocative or palliative factors. He states it started earlier today. Denies any radiation of the pain. Denies any headaches, blurry vision, lightheadedness, weakness, numbness. Denies any nausea or vomiting currently. Denies any diarrhea. Denies any fevers or chills or sick contacts. Patient otherwise has no acute complaint this time. He is requesting evaluation secondary to his chest pain. - Related Data Home Medications Medication Instructions Recorded Confirmed Ibuprofen [Motrin Ib] 400 mg PO Q8H PRN 11/15/20 11/18/20 Nicotine 21Mg/24Hr Patch [Habitrol] 1 patch TRANSDERM DAILY PRN 11/18/20 11/18/20 Previous Rx's Medication Instructions Recorded amLODIPine [Norvasc] 5 mg PO DAILY #30 tab 11/16/20 busPIRone HCl [Buspar] 5 mg PO TID #90 tab 11/16/20 hydrALAZINE HCL [Apresoline] 25 mg PO TID #90 tab 11/16/20 hydroCHLOROthiazide [Hydrodiuril] 25 mg PO DAILY #30 tab 11/16/20 Famotidine [Pepcid] 20 mg PO DAILY #14 tablet 11/18/20 Mag Hydrox/Al Hydrox/Simeth 30 ml PO BID #500 ml 11/18/20 [Maalox] Melatonin 3 mg PO DIRECTED #30 tablet 11/18/20 Allergies Allergy/AdvReac Type Severity Reaction Status Date / Time diphenhydramine HCl Allergy Unknown Verified 11/18/20 17:28 [From Benadryl] Review of Systems ROS Statement: Those systems with pertinent positive or pertinent negative responses have been documented in the HPI. Review of Systems: CONST: Denies fever EYES: Denies blurry vision ENT: Denies nasal congestion C/V: Endorses chest pain RESP: Denies shortness of breath GI: Is abdominal pain : Denies dysuria SKIN: Denies rash. MSK: Denies joint pain. NEURO: Denies headache ROS Other: All systems not noted in ROS Statement are negative. Past Medical History Past Medical History: Osteoarthritis (OA), Seizure Disorder Additional Past Medical History / Comment(s): epilepsy, chronic back/neck pain, hepatitis C,A and Hep B History of Any Multi-Drug Resistant Organisms: None Reported Past Surgical History: Hernia Repair Additional Past Surgical History / Comment(s): R inguinal hernia repair, L arm benign tumor excision. Past Anesthesia/Blood Transfusion Reactions: No Reported Reaction Past Psychological History: Anxiety, Depression Smoking Status: Current every day smoker Past Alcohol Use History: Occasional Past Drug Use History: Marijuana - Past Family History Father Family Medical History: Cancer Additional Family Medical History / Comment(s): lung/liver cancer. He is . Mother Family Medical History: Cancer Additional Family Medical History / Comment(s): Mother of lung cancer. She was a smoker. General Exam - General Exam Comments Initial Comments: General: Appears in no acute distress. HEAD: Normal with no signs of head trauma. EYES: PERRLA, EOMI, conjunctiva normal, no discharge. ENT: Hearing grossly intact, normal oropharynx. RESPIRATORY: Clear breath sounds bilaterally. No wheezes, rales, or rhonchi. C/V: Regular rate and rhythm. S1 and S2 auscultated, no edema, peripheral pulses 2+ and intact throughout ABD: Abd is soft, nontender, nondistended. There is no guarding. There are no peritoneal signs. EXT: Normal range of motion, no obvious deformity SKIN: No rashes or lesions observed on exposed skin. NEURO: Alert and oriented 4. Limitations: no limitations Course Vital Signs 11/18/20 11/18/20 16:35 20:19 Temperature 98.2 F 98.2 F Pulse Rate 75 70 Respiratory 18 18 Rate Blood Pressure 145/96 132/74 O2 Sat by Pulse 98 98 Oximetry Medical Decision Making - Medical Decision Making Based on the patient's presentation and physical exam, I'm concerned for possible cardiac etiology for his current symptoms. Therefore we will obtain a cardiac workup in addition to abdominal laboratory studies. Patient be provided with IV morphine for pain management as well as by mouth aspirin, IV Zofran, and 1 L fluid bolus. He'll be connected to continuous cardiac monitoring. He was in agreement with this plan. Patient's EKG revealed no signs of acute ischemia. Chest x-ray revealed no acute cardiac primary process. Laboratory studies were remarkable for a negative troponin. Remainder of the labs are unremarkable. On Reevaluation, patient is feeling improved. He is requesting to go home but is asking for melatonin prescription as well as something for his stomach. I will provide him with prescriptions for his acid that is requesting. He'll be discharged home with strict return precautions. I will provide the patient with a prescription for famotidine, Maalox, melatonin. I instructed the patient to follow up with their PCP in the next 3 days . I explained that the patient should return to the emergency department if they experience any worsening symptoms. Strict return precautions were discussed with the patient. The patient expressed understanding of these instructions. I answered all questions that the patient had. The patient was discharged home in improved condition with their prescriptions and follow up information. - Lab Data Result diagrams: 11/18/20 17:52 11/18/20 17:52 Lab Results 11/18/20 11/18/20 11/18/20 Range/Units 17:52 17:52 17:52 WBC 6.5 (3.8-10.6) k/uL RBC 4.40 (4.30-5.90) m/uL Hgb 14.3 (13.0-17.5) gm/dL Hct 40.4 (39.0-53.0) % MCV 91.9 (80.0-100.0) fL MCH 32.4 (25.0-35.0) pg MCHC 35.3 (31.0-37.0) g/dL RDW 12.8 (11.5-15.5) % Plt Count 240 (150-450) k/uL MPV 7.8 Neutrophils % 56 % Lymphocytes % 30 % Monocytes % 7 % Eosinophils % 4 % Basophils % 1 % Neutrophils # 3.6 (1.3-7.7) k/uL Lymphocytes # 2.0 (1.0-4.8) k/uL Monocytes # 0.5 (0-1.0) k/uL Eosinophils # 0.3 (0-0.7) k/uL Basophils # 0.0 (0-0.2) k/uL PT 10.5 (9.0-12.0) sec INR 1.0 (<1.2) APTT 21.4 L (22.0-30.0) sec Sodium 138 (137-145) mmol/L Potassium 4.4 (3.5-5.1) mmol/L Chloride 101 (98-107) mmol/L Carbon Dioxide 28 (22-30) mmol/L Anion Gap 9 mmol/L BUN 30 H (9-20) mg/dL Creatinine 0.78 (0.66-1.25) mg/dL Est GFR (CKD-EPI)AfAm >90 (>60 ml/min/1.73 sqM) Est GFR (CKD-EPI)NonAf >90 (>60 ml/min/1.73 sqM) Glucose 116 H (74-99) mg/dL Calcium 10.2 (8.4-10.2) mg/dL Magnesium 1.9 (1.6-2.3) mg/dL Total Bilirubin 0.4 (0.2-1.3) mg/dL AST 40 (17-59) U/L ALT 18 (4-49) U/L Alkaline Phosphatase 58 (38-126) U/L Troponin I (0.000-0.034) ng/mL Total Protein 7.4 (6.3-8.2) g/dL Albumin 4.4 (3.5-5.0) g/dL Lipase 95 (23-300) U/L 11/18/20 Range/Units 17:52 WBC (3.8-10.6) k/uL RBC (4.30-5.90) m/uL Hgb (13.0-17.5) gm/dL Hct (39.0-53.0) % MCV (80.0-100.0) fL MCH (25.0-35.0) pg MCHC (31.0-37.0) g/dL RDW (11.5-15.5) % Plt Count (150-450) k/uL MPV Neutrophils % % Lymphocytes % % Monocytes % % Eosinophils % % Basophils % % Neutrophils # (1.3-7.7) k/uL Lymphocytes # (1.0-4.8) k/uL Monocytes # (0-1.0) k/uL Eosinophils # (0-0.7) k/uL Basophils # (0-0.2) k/uL PT (9.0-12.0) sec INR (<1.2) APTT (22.0-30.0) sec Sodium (137-145) mmol/L Potassium (3.5-5.1) mmol/L Chloride (98-107) mmol/L Carbon Dioxide (22-30) mmol/L Anion Gap mmol/L BUN (9-20) mg/dL Creatinine (0.66-1.25) mg/dL Est GFR (CKD-EPI)AfAm (>60 ml/min/1.73 sqM) Est GFR (CKD-EPI)NonAf (>60 ml/min/1.73 sqM) Glucose (74-99) mg/dL Calcium (8.4-10.2) mg/dL Magnesium (1.6-2.3) mg/dL Total Bilirubin (0.2-1.3) mg/dL AST (17-59) U/L ALT (4-49) U/L Alkaline Phosphatase (38-126) U/L Troponin I <0.012 (0.000-0.034) ng/mL Total Protein (6.3-8.2) g/dL Albumin (3.5-5.0) g/dL Lipase (23-300) U/L - EKG Data -: EKG Interpreted by Me EKG Comments: 12-lead Electrocardiogram Interpretation Note EKG was reviewed and interpreted by myself. 12-lead ECG performed at 1642 is interpreted by me as revealing normal sinus rhythm at a rate of 75 beats per minute. [place] is normal. [place] interval is 118 ms, QRS duration is 100 ms, QTc is 426 seconds.. There were no ST or T wave abnormalities to suggest myocardial ischemia or injury. R wave progression across the precordium was satisfactory. By my interpretation this EKG is non-diagnostic for acute ischemia. Disposition Clinical Impression: Chest pain of unknown etiology, Nausea and vomiting Disposition: HOME SELF-CARE Condition: Good Prescriptions: Mag Hydrox/Al Hydrox/Simeth [Maalox] 30 ml PO BID #500 ml Melatonin 3 mg PO DIRECTED #30 tablet Famotidine [Pepcid] 20 mg PO DAILY #14 tablet Is patient prescribed a controlled substance at d/c from ED?: No Referrals: None,Stated [Primary Care Provider] - 1-2 days
[2020-11-18 20:20] VITALS: BP 132/74; PULSE 70
== END 2020-11-18 20:20 | disposition home or self-care (01) ==
LOC: EC 16:30
DX: R07.2 Precordial pain (principal); R11.2 Nausea with vomiting, unspecified; R10.13 Epigastric pain; F17.200 Nicotine dependence, unspecified, uncomplicated; M19.90 Unspecified osteoarthritis, unspecified site; Z88.8 Allergy status to other drugs, medicaments and biological substances
CPT/HCPCS: 36415; 93005; 80053; 83690; 83735; 84484; 85025; 85610; 85730; 71045; 99285; 96374; 96375; 96361; J2270; J2405

== ENCOUNTER 2020-12-19 17:43 | Emergency (ER) | payer MEDICARE, OTHER ==
[2020-12-19] MEDS ORDERED: SODIUM CHLORIDE 0.9% 1,000 ML IV STA (18:14)
--- NOTE | 2020-12-19 18:21 | ED ---
General Adult HPI - General Chief complaint: Abdominal Pain Stated complaint: abd pain Source: patient, EMS, RN notes reviewed Mode of arrival: EMS Limitations: no limitations - History of Present Illness Initial comments: 55-year-old white male, alert and oriented 4, presents to the emergency room complaints of falling down 15 steps 2 days ago. Patient states that he sleepwa lks and found himself awake standing at the top of 15 stairs. He put his arm out to keep him from falling but ended up falling anyways getting an abrasion to the top of his head and injuring his right side. Patient states that he thinks he might of broken a rib and wants an xr. He states that the pain is sharp and radiates to his abdomen. He denies any loss of consciousness after the fall. He denies any headaches or neuro deficits. He states he took Motrin at noon no relief. -: days(s) (2) Location: abdomen Radiation: periumbilical (Right flank) Severity scale (1-10): 9 Quality: sharp Consistency: constant Improves with: immobilization Worsens with: movement Treatments Prior to Arrival: NSAID - Related Data Home Medications Medication Instructions Recorded Confirmed Ibuprofen [Motrin Ib] 400 mg PO Q8H PRN 11/15/20 12/19/20 Nicotine 21Mg/24Hr Patch [Habitrol] 1 patch TRANSDERM DAILY PRN 11/18/20 12/19/20 Previous Rx's Medication Instructions Recorded amLODIPine [Norvasc] 5 mg PO DAILY #30 tab 11/16/20 hydrALAZINE HCL [Apresoline] 25 mg PO TID #90 tab 11/16/20 hydroCHLOROthiazide [Hydrodiuril] 25 mg PO DAILY #30 tab 11/16/20 Allergies Allergy/AdvReac Type Severity Reaction Status Date / Time buspirone [From BuSpar] AdvReac Rapid Verified 12/19/20 19:39 Heart Rate diphenhydramine HCl AdvReac Rapid Verified 12/19/20 19:39 [From Benadryl] Heart Rate Review of Systems ROS Statement: Those systems with pertinent positive or pertinent negative responses have been documented in the HPI. ROS Other: All systems not noted in ROS Statement are negative. Past Medical History Past Medical History: GERD/Reflux, Hypertension Additional Past Medical History / Comment(s): epilepsy, chronic back/neck pain, hepatitis C,A and Hep B History of Any Multi-Drug Resistant Organisms: None Reported Past Surgical History: Hernia Repair Additional Past Surgical History / Comment(s): R inguinal hernia repair, L arm benign tumor excision. Past Anesthesia/Blood Transfusion Reactions: No Reported Reaction Past Psychological History: Anxiety, Depression Smoking Status: Current every day smoker Past Alcohol Use History: Occasional Past Drug Use History: Marijuana - Past Family History Father Family Medical History: Cancer Additional Family Medical History / Comment(s): lung/liver cancer. He is . Mother Family Medical History: Cancer Additional Family Medical History / Comment(s): Mother of lung cancer. She was a smoker. General Exam Limitations: no limitations General appearance: alert, in no apparent distress Head exam: Present: other (Abrasions to the top of his scalp) Eye exam: Present: normal appearance, PERRL, EOMI. Absent: scleral icterus, conjunctival injection, periorbital swelling Pupils: Present: normal accommodation ENT exam: Present: normal exam, normal oropharynx, mucous membranes moist Neck exam: Present: normal inspection, full ROM. Absent: tenderness, meningismus, lymphadenopathy, thyromegaly Respiratory exam: Present: normal lung sounds bilaterally. Absent: respiratory distress, wheezes, rales, rhonchi, stridor Cardiovascular Exam: Present: regular rate, normal rhythm, normal heart sounds. Absent: systolic murmur, diastolic murmur, rubs, gallop, clicks, JVD GI/Abdominal exam: Present: soft, normal bowel sounds. Absent: distended, tenderness, guarding, rebound, rigid, mass Extremities exam: Present: full ROM, normal capillary refill. Absent: tenderness, pedal edema, joint swelling, calf tenderness Back exam: Present: normal inspection, full ROM, tenderness (Current posterior ribs). Absent: CVA tenderness (R), CVA tenderness (L), muscle spasm, paraspinal tenderness, vertebral tenderness, rash noted Expanded Back exam: Absent: saddle anesthesia Back exam: Negative Straight Leg Raising: Left, Right Neurological exam: Present: alert, oriented X3, CN II-XII intact. Absent: motor sensory deficit Psychiatric exam: Present: normal affect, normal mood Skin exam: Present: warm, dry, intact, normal color. Absent: rash, cyanosis, diaphoretic, erythema, petechiae, pallor, mottled Course Vital Signs 12/19/20 12/19/20 17:45 19:20 Temperature 98.7 F Pulse Rate 89 67 Respiratory 16 18 Rate Blood Pressure 172/98 146/98 O2 Sat by Pulse 94 L 98 Oximetry Medical Decision Making - Medical Decision Making CBC and electrolytes are within normal limits, UA is negative for blood. Chest x-ray is negative for any fractures. CT of the brain is negative for any intracranial hemorrhage or midline shift. There are no masses. CT c-spine shows moderate narrowing of the C4 to C7, no evidence of fracture. Patient is well-appearing with no focal neurological deficits. There is no bruising to his abdomen or flanks. He'll be discharged home to follow up with his primary care doctor. Case discussed with Dr. Medeiros was agreeable to this plan of care. - Lab Data Result diagrams: 12/19/20 18:23 12/19/20 18:23 Lab Results 12/19/20 12/19/20 12/19/20 Range/Units 18:23 18:23 18:23 WBC 7.6 (3.8-10.6) k/uL RBC 4.43 (4.30-5.90) m/uL Hgb 14.5 (13.0-17.5) gm/dL Hct 41.4 (39.0-53.0) % MCV 93.3 (80.0-100.0) fL MCH 32.7 (25.0-35.0) pg MCHC 35.0 (31.0-37.0) g/dL RDW 13.0 (11.5-15.5) % Plt Count 295 (150-450) k/uL MPV 7.6 Neutrophils % 49 % Lymphocytes % 38 % Monocytes % 5 % Eosinophils % 3 % Basophils % 1 % Neutrophils # 3.7 (1.3-7.7) k/uL Lymphocytes # 2.9 (1.0-4.8) k/uL Monocytes # 0.4 (0-1.0) k/uL Eosinophils # 0.2 (0-0.7) k/uL Basophils # 0.0 (0-0.2) k/uL Sodium 141 (137-145) mmol/L Potassium 3.9 (3.5-5.1) mmol/L Chloride 105 (98-107) mmol/L Carbon Dioxide 25 (22-30) mmol/L Anion Gap 11 mmol/L BUN 18 (9-20) mg/dL Creatinine 0.85 (0.66-1.25) mg/dL Est GFR (CKD-EPI)AfAm >90 (>60 ml/min/1.73 sqM) Est GFR (CKD-EPI)NonAf >90 (>60 ml/min/1.73 sqM) Glucose 92 (74-99) mg/dL Calcium 10.2 (8.4-10.2) mg/dL Total Bilirubin 0.3 (0.2-1.3) mg/dL AST 32 (17-59) U/L ALT 20 (4-49) U/L Alkaline Phosphatase 57 (38-126) U/L Total Protein 7.9 (6.3-8.2) g/dL Albumin 4.6 (3.5-5.0) g/dL Amylase 67 (30-110) U/L Lipase 254 (23-300) U/L Urine Color Light Yellow Urine Appearance Clear (Clear) Urine pH 7.5 (5.0-8.0) Ur Specific [place] 1.005 (1.001-1.035) Urine Protein Negative (Negative) Urine Glucose (UA) Negative (Negative) Urine Ketones Negative (Negative) Urine Blood Negative (Negative) Urine Nitrite Negative (Negative) Urine Bilirubin Negative (Negative) Urine Urobilinogen <2.0 (<2.0) mg/dL Ur Leukocyte Esterase Negative (Negative) Disposition Clinical Impression: Fall, Rib pain on right side Disposition: HOME SELF-CARE Condition: Good Instructions (If sedation given, give patient instructions): Fall Prevention (ED) Additional Instructions: Tylenol and/or Motrin for pain. Take deep breaths and cough every hour to prevent pneumonia. Follow-up with the primary care doctor in 1 week Is patient prescribed a controlled substance at d/c from ED?: No Referrals: None,Stated [Primary Care Provider] - 1-2 days Time of Disposition: 19:30
[2020-12-19 18:30] LABS: Basophils % (A) 1 %; Eosinophils # (A) 0.2 k/uL (0-0.7); Eosinophils % (A) 3 %; HCT 41.4 % (39.0-53.0); HGB 14.5 gm/dL (13.0-17.5); Lymphocytes # (A) 2.9 k/uL (1.0-4.8); Lymphocytes % (A) 38 %; MCH 32.7 pg (25.0-35.0); MCV 93.3 fL (80.0-100.0); Mean Platelet Volume 7.6; Monocytes # (A) 0.4 k/uL (0-1.0); Monocytes % (A) 5 %; Neutrophils # (A) 3.7 k/uL (1.3-7.7); Neutrophils % (A) 49 %; Platelet Count 295 k/uL (150-450); RBC 4.43 m/uL (4.30-5.90); WBC 7.6 k/uL (3.8-10.6)
[2020-12-19 18:44] LABS: ALT 20 U/L (4-49); AST 32 U/L (17-59); African American GFR (CKD) >90 (>60 ml/min/1.73 sqM); Albumin 4.6 g/dL (3.5-5.0); Alkaline Phosphatase 57 U/L (38-126); Amylase 67 U/L (30-110); Anion Gap 11 mmol/L; Blood Urea Nitrogen 18 mg/dL (9-20); Calcium 10.2 mg/dL (8.4-10.2); Carbon Dioxide 25 mmol/L (22-30); Chloride 105 mmol/L (98-107); Glucose 92 mg/dL (74-99); Lipase 254 U/L (23-300); Non-African American GFR(CKD) >90 (>60 ml/min/1.73 sqM); Potassium 3.9 mmol/L (3.5-5.1); Sodium 141 mmol/L (137-145); Total Bilirubin 0.3 mg/dL (0.2-1.3); Total Protein 7.9 g/dL (6.3-8.2)
[2020-12-19 18:50] LABS: Appearance,Urine Clear (Clear); Bilirubin,Urine Negative (Negative); Blood,Urine Negative (Negative); Color,Urine Light Yellow; Glucose,Urine (UA) Negative (Negative); Ketones,Urine Negative (Negative); Leukocyte Esterase,Urine Negative (Negative); Nitrite,Urine Negative (Negative); PH, Urine 7.5 (5.0-8.0); Protein,Urine Negative (Negative); Specific Gravity,Urine 1.005 (1.001-1.035); Urobilinogen,Urine <2.0 mg/dL (<2.0)
--- NOTE | 2020-12-19 19:03 | XR ---
EXAMINATION TYPE: XR chest 2V DATE OF EXAM: 12/19/2020 COMPARISON: 11/18/2020 HISTORY: Chest pain TECHNIQUE: 2 views FINDINGS: Heart and mediastinum are normal. Lungs are clear of infiltrate. There is no heart failure. There are no hilar masses. Bony thorax is intact. IMPRESSION: Normal chest. No change.
[2020-12-19] MEDS ORDERED: MORPHINE SULFATE 2 MG/ML SYRINGE IVP ONE (19:17)
--- NOTE | 2020-12-19 19:19 | CT ---
EXAMINATION TYPE: CT brain cspine wo con DATE OF EXAM: 12/19/2020 COMPARISON: 03/24/2020 HISTORY: fell down [address] DLP: 1259.1 mGycm Automated exposure control for dose reduction was used. Ventricles and sulci appear normal. There is no mass effect nor midline shift. There is no sign of in tracranial hemorrhage. The calvarium is intact. Cervical vertebra show normal alignment. There is moderate narrowing of the disc spaces from C4 to C7 with spurring of the endplates. There is hypertrophic mild facet arthropathy in the mid and lower ce rvical spine. There is no compression fracture. Prevertebral soft tissues are intact. There is normal aeration of the mastoid air cells. There is no evidence of basilar skull fracture. IMPRESSION: Spondylotic moderate changes in the lower cervical spine. No fracture. No change compared to old exam . Negative CT scan of the brain. No change compared to old exam.
[2020-12-19 20:09] VITALS: BP 138/78; PULSE 62; RESP 20; TEMP 98.1
== END 2020-12-19 20:00 | disposition home or self-care (01) ==
LOC: EC 17:43
DX: S00.01XA Abrasion of scalp, initial encounter (principal); R07.81 Pleurodynia; F17.200 Nicotine dependence, unspecified, uncomplicated; I10 Essential (primary) hypertension; Z88.8 Allergy status to other drugs, medicaments and biological substances; W10.9XXA Fall (on) (from) unspecified stairs and steps, initial encounter
CPT/HCPCS: 36415; 80053; 82150; 83690; 85025; 81003; 71046; 72125; 70450; 99284; 96374; 96361; J2270

== ENCOUNTER 2021-04-12 18:28 | Emergency (ER) | payer MEDICARE, OTHER ==
[2021-04-12 18:43] VITALS: RESP 18; TEMP 98.8
[2021-04-12] MEDS ORDERED: ASPIRIN 81 MG PO STA (18:47)
[2021-04-12] MEDS ORDERED: MORPHINE SULFATE 4 MG/ML SYRINGE IVP STA (18:55)
--- NOTE | 2021-04-12 19:30 | XR ---
EXAMINATION TYPE: XR chest 2V DATE OF EXAM: 04/12/2021 COMPARISON: 12/19/2020 HISTORY: Pain TECHNIQUE: FINDINGS: Heart and mediastinum are normal. Lungs are clear. Diaphragm is normal. Bony thorax is inta ct. IMPRESSION: Normal chest. No change.
[2021-04-12 19:41] LABS: Basophils % (A) 1 %; Eosinophils # (A) 0.3 k/uL (0-0.7); Eosinophils % (A) 3 %; HCT 28.7 % (39.0-53.0); Lymphocytes # (A) 2.8 k/uL (1.0-4.8); Lymphocytes % (A) 36 %; MCH 33.2 pg (25.0-35.0); MCHC 34.9 g/dL (31.0-37.0); MCV 94.9 fL (80.0-100.0); Mean Platelet Volume 7.6; Monocytes # (A) 0.5 k/uL (0-1.0); Monocytes % (A) 6 %; Neutrophils % (A) 51 %; Platelet Count 442 k/uL (150-450); RBC 3.02 m/uL (4.30-5.90); WBC 7.7 k/uL (3.8-10.6)
[2021-04-12 19:49] LABS: INR 1.1 (<1.2); Partial Thromboplastin Time 23.8 sec (22.0-30.0); Prothrombin Time 11.1 sec (9.0-12.0)
[2021-04-12 19:51] LABS: ALT 16 U/L (4-49); AST 28 U/L (17-59); African American GFR (CKD) >90 (>60 ml/min/1.73 sqM); Albumin 3.9 g/dL (3.5-5.0); Alkaline Phosphatase 50 U/L (38-126); Anion Gap 9 mmol/L; Blood Urea Nitrogen 16 mg/dL (9-20); Calcium 9.3 mg/dL (8.4-10.2); Carbon Dioxide 24 mmol/L (22-30); Chloride 105 mmol/L (98-107); Glucose 114 mg/dL (74-99); Magnesium 1.8 mg/dL (1.6-2.3); Non-African American GFR(CKD) >90 (>60 ml/min/1.73 sqM); Sodium 138 mmol/L (137-145); Total Bilirubin 0.3 mg/dL (0.2-1.3)
[2021-04-12 20:00] LABS: Potassium 4.3 mmol/L (3.5-5.1)
--- NOTE | 2021-04-12 20:55 | ED ---
General Adult HPI - General Chief complaint: Chest Pain Stated complaint: chest pain Time Seen by Provider: 04/12/21 18:43 Source: patient, EMS, RN notes reviewed, old records reviewed Mode of arrival: EMS Limitations: no limitations - History of Present Illness Initial comments: Patient is a 55-year-old male with past medical history remarkable for anxiety, marijuana use and seizure disorder was presented to this emergency department for similar complaints in the past. Patient is complaining of a multi day history of substernal chest discomfort. Has no known palliative or provocative factors. Describes it as a tightness. Denies any other acute complaints along with increasing shortness of breath, abdominal pain, nausea, vomiting. Denies any history of blood clots. States this is similar to prior episodes. Denies any headache, weakness, numbness. His no other acute complaints at this time. Has no fevers, chills, cough. - Related Data Home Medications Medication Instructions Recorded Confirmed Ibuprofen [Motrin Ib] 400 mg PO Q8H PRN 11/15/20 12/19/20 Nicotine 21Mg/24Hr Patch [Habitrol] 1 patch TRANSDERM DAILY PRN 11/18/20 12/19/20 Previous Rx's Medication Instructions Recorded amLODIPine [Norvasc] 5 mg PO DAILY #30 tab 11/16/20 hydrALAZINE HCL [Apresoline] 25 mg PO TID #90 tab 11/16/20 hydroCHLOROthiazide [Hydrodiuril] 25 mg PO DAILY #30 tab 11/16/20 Allergies Allergy/AdvReac Type Severity Reaction Status Date / Time buspirone [From BuSpar] AdvReac Rapid Verified 12/19/20 19:39 Heart Rate diphenhydramine HCl AdvReac Rapid Verified 12/19/20 19:39 [From Benadryl] Heart Rate Review of Systems ROS Statement: Those systems with pertinent positive or pertinent negative responses have been documented in the HPI. Review of Systems: CONST: Denies fever EYES: Denies blurry vision ENT: Denies nasal congestion C/V: Endorses chest pain RESP: Denies shortness of breath GI: Denies abdominal pain : Denies dysuria SKIN: Denies rash. MSK: Denies joint pain. NEURO: Denies headache ROS Other: All systems not noted in ROS Statement are negative. Past Medical History Past Medical History: Osteoarthritis (OA), Seizure Disorder Additional Past Medical History / Comment(s): epilepsy, chronic back/neck pain, hepatitis C,A and Hep B History of Any Multi-Drug Resistant Organisms: None Reported Past Surgical History: Hernia Repair Additional Past Surgical History / Comment(s): R inguinal hernia repair, L arm benign tumor excision. Past Anesthesia/Blood Transfusion Reactions: No Reported Reaction Past Psychological History: Anxiety, Depression Smoking Status: Current some day smoker Past Alcohol Use History: Occasional Past Drug Use History: Marijuana - Past Family History Father Family Medical History: Cancer Additional Family Medical History / Comment(s): lung/liver cancer. He is . Mother Family Medical History: Cancer Additional Family Medical History / Comment(s): Mother of lung cancer. She was a smoker. General Exam - General Exam Comments Initial Comments: General: Appears in no acute distress. HEAD: Normal with no signs of head trauma. EYES: PERRLA, EOMI, conjunctiva normal, no discharge. ENT: Hearing grossly intact, normal oropharynx. RESPIRATORY: Clear breath sounds bilaterally. No wheezes, rales, or rhonchi. C/V: Regular rate and rhythm. S1 and S2 auscultated, no edema, peripheral pu lses 2+ and intact throughout ABD: Abd is soft, nontender, nondistended EXT: Normal range of motion, no obvious deformity SKIN: No rashes or lesions observed on exposed skin. NEURO: Alert and oriented 4. No focal deficits. Limitations: no limitations Course Vital Signs 04/12/21 18:39 Temperature 98.8 F Pulse Rate 77 Respiratory 18 Rate Blood Pressure 155/89 O2 Sat by Pulse 99 Oximetry Medical Decision Making - Medical Decision Making Based on patient's presentation and physical exam, I'm concerned for possible cardiac etiology for his current symptoms. He does have this chronic chest pain that comes and goes. He does have a history of anxiety. His prior negative cardiac workups. I believe a single troponin is adequate as his chest pain is intermittent over the last few days. EKG, chest x-ray, laboratory studies are obtained. Aspirin and morphine will be Mr. He was in agreement this plan. EKG shows no signs of acute ischemia and his somewhat a prior EKGs. Laboratory studies are remarkable for negative troponin. Remainder labs are unremarkable. Chest x-ray shows no acute cardiopulmonary process. On reevaluation, patient chest pain is resolved. We did discuss that due to his negative workup, I do believe it is safer to be discharged, this time. He was in agreement this plan. His a follow-up appointment with his primary care physician in a few weeks. Heart score is 1. I instructed the patient to follow up with their PCP in the next 3 days. I explained that the patient should return to the emergency department if they experience any worsening symptoms. Strict return precautions were discussed with the patient. The patient expressed understanding of these instructions. I answered all questions that the patient had. The patient was discharged home in good condition with their prescriptions and follow up information. - Lab Data Result diagrams: 04/12/21 19:04 04/12/21 19:04 Lab Results 04/12/21 04/12/21 04/12/21 Range/Units 19:04 19:04 19:04 WBC 7.7 (3.8-10.6) k/uL RBC 3.02 L (4.30-5.90) m/uL Hgb 10.0 L (13.0-17.5) gm/dL Hct 28.7 L (39.0-53.0) % MCV 94.9 (80.0-100.0) fL MCH 33.2 (25.0-35.0) pg MCHC 34.9 (31.0-37.0) g/dL RDW 13.0 (11.5-15.5) % Plt Count 442 (150-450) k/uL MPV 7.6 Neutrophils % 51 % Lymphocytes % 36 % Monocytes % 6 % Eosinophils % 3 % Basophils % 1 % Neutrophils # 4.0 (1.3-7.7) k/uL Lymphocytes # 2.8 (1.0-4.8) k/uL Monocytes # 0.5 (0-1.0) k/uL Eosinophils # 0.3 (0-0.7) k/uL Basophils # 0.0 (0-0.2) k/uL PT 11.1 (9.0-12.0) sec INR 1.1 (<1.2) APTT 23.8 (22.0-30.0) sec Sodium 138 (137-145) mmol/L Potassium 4.3 (3.5-5.1) mmol/L Chloride 105 (98-107) mmol/L Carbon Dioxide 24 (22-30) mmol/L Anion Gap 9 mmol/L BUN 16 (9-20) mg/dL Creatinine 0.62 L (0.66-1.25) mg/dL Est GFR (CKD-EPI)AfAm >90 (>60 ml/min/1.73 sqM) Est GFR (CKD-EPI)NonAf >90 (>60 ml/min/1.73 sqM) Glucose 114 H (74-99) mg/dL Calcium 9.3 (8.4-10.2) mg/dL Magnesium 1.8 (1.6-2.3) mg/dL Total Bilirubin 0.3 (0.2-1.3) mg/dL AST 28 (17-59) U/L ALT 16 (4-49) U/L Alkaline Phosphatase 50 (38-126) U/L Troponin I (0.000-0.034) ng/mL Total Protein 7.0 (6.3-8.2) g/dL Albumin 3.9 (3.5-5.0) g/dL 04/12/21 Range/Units 19:04 WBC (3.8-10.6) k/uL RBC (4.30-5.90) m/uL Hgb (13.0-17.5) gm/dL Hct (39.0-53.0) % MCV (80.0-100.0) fL MCH (25.0-35.0) pg MCHC (31.0-37.0) g/dL RDW (11.5-15.5) % Plt Count (150-450) k/uL MPV Neutrophils % % Lymphocytes % % Monocytes % % Eosinophils % % Basophils % % Neutrophils # (1.3-7.7) k/uL Lymphocytes # (1.0-4.8) k/uL Monocytes # (0-1.0) k/uL Eosinophils # (0-0.7) k/uL Basophils # (0-0.2) k/uL PT (9.0-12.0) sec INR (<1.2) APTT (22.0-30.0) sec Sodium (137-145) mmol/L Potassium (3.5-5.1) mmol/L Chloride (98-107) mmol/L Carbon Dioxide (22-30) mmol/L Anion Gap mmol/L BUN (9-20) mg/dL Creatinine (0.66-1.25) mg/dL Est GFR (CKD-EPI)AfAm (>60 ml/min/1.73 sqM) Est GFR (CKD-EPI)NonAf (>60 ml/min/1.73 sqM) Glucose (74-99) mg/dL Calcium (8.4-10.2) mg/dL Magnesium (1.6-2.3) mg/dL Total Bilirubin (0.2-1.3) mg/dL AST (17-59) U/L ALT (4-49) U/L Alkaline Phosphatase (38-126) U/L Troponin I <0.012 (0.000-0.034) ng/mL Total Protein (6.3-8.2) g/dL Albumin (3.5-5.0) g/dL - EKG Data -: EKG Interpreted by Me EKG Comments: 12-lead Electrocardiogram Interpretation Note EKG was reviewed and interpreted by myself. 12-lead ECG performed at 1835 is interpreted by me as revealing normal sinus rhythm at a rate of 78 beats per minute. [place] is normal. AR interval is 114 ms, QRS duration is 100 ms, QTc is 444 ms.. There were no ST or T wave abnormalities to suggest myocardial ischemia or injury. R wave progression across the precordium was satisfactory. By my interpretation this EKG is non-diagnostic for acute ischemia. Unchanged when compared to prior EKGs. Disposition Clinical Impression: Chest pain of unknown etiology Disposition: HOME SELF-CARE Condition: Good Instructions (If sedation given, give patient instructions): Chest Pain (ED) Is patient prescribed a controlled substance at d/c from ED?: No Referrals: [facility] [Primary Care Provider] - 1-2 days
[2021-04-12 21:26] VITALS: BP 153/86; PULSE 68
== END 2021-04-12 21:20 | disposition home or self-care (01) ==
LOC: EC 18:28
DX: R07.2 Precordial pain (principal); F17.200 Nicotine dependence, unspecified, uncomplicated; Z88.8 Allergy status to other drugs, medicaments and biological substances
CPT/HCPCS: 36415; 93005; 80053; 83735; 84484; 85025; 85610; 85730; 71046; 99285; 96374; J2270

== ENCOUNTER 2021-04-18 17:35 | Emergency (ER) | payer MEDICARE, OTHER ==
[2021-04-18 17:43] VITALS: BP 128/84; PULSE 76; RESP 16; TEMP 97.8
--- NOTE | 2021-04-18 17:54 | ED ---
General Adult HPI - General Chief complaint: Chest Pain Stated complaint: chest pain Time Seen by Provider: 04/18/21 17:50 Source: patient, RN notes reviewed, old records reviewed Mode of arrival: wheelchair Limitations: no limitations - History of Present Illness Initial comments: 55-year-old male, alert and oriented 4, presents to the emergency room with complaints of one hour of substernal chest pain radiating to his left armpit. Patient states that he was just sitting watching News when the pain came on. He states that he is also complaining of dizziness when walking. He has a history of osteoarthritis, and seizures which he treats with smoking marijuana. He also has a history of anxiety. He denies any fevers, nausea vomiting or diarrhea. He was last seen April 12 for chest pain. He did have a stress test in November of this year. -: hour(s) (1) Location: chest Radiation: extremity (left arm pit) Severity scale (1-10): 9 Quality: other (Squeezing) Consistency: constant Improves with: none Worsens with: other (Exertion) Associated Symptoms: other (Dizziness) Treatments Prior to Arrival: none - Related Data Home Medications Medication Instructions Recorded Confirmed Ibuprofen [Motrin Ib] 400 mg PO Q8H PRN 11/15/20 12/19/20 Nicotine 21Mg/24Hr Patch [Habitrol] 1 patch TRANSDERM DAILY PRN 11/18/20 12/19/20 Previous Rx's Medication Instructions Recorded amLODIPine [Norvasc] 5 mg PO DAILY #30 tab 11/16/20 hydrALAZINE HCL [Apresoline] 25 mg PO TID #90 tab 11/16/20 hydroCHLOROthiazide [Hydrodiuril] 25 mg PO DAILY #30 tab 11/16/20 Allergies Allergy/AdvReac Type Severity Reaction Status Date / Time buspirone [From BuSpar] AdvReac Rapid Verified 04/18/21 17:41 Heart Rate diphenhydramine HCl AdvReac Rapid Verified 04/18/21 17:41 [From Benadryl] Heart Rate Review of Systems ROS Statement: Those systems with pertinent positive or pertinent negative responses have been documented in the HPI. ROS Other: All systems not noted in ROS Statement are negative. Past Medical History Past Medical History: Osteoarthritis (OA), Seizure Disorder Additional Past Medical History / Comment(s): epilepsy, chronic back/neck pain, hepatitis C,A and Hep B History of Any Multi-Drug Resistant Organisms: None Reported Past Surgical History: Hernia Repair Additional Past Surgical History / Comment(s): R inguinal hernia repair, L arm benign tumor excision. Past Anesthesia/Blood Transfusion Reactions: No Reported Reaction Past Psychological History: Anxiety, Depression Smoking Status: Current some day smoker Past Alcohol Use History: Occasional Past Drug Use History: Marijuana - Past Family History Father Family Medical History: Cancer Additional Family Medical History / Comment(s): lung/liver cancer. He is . Mother Family Medical History: Cancer Additional Family Medical History / Comment(s): Mother of lung cancer. She was a smoker. General Exam Limitations: no limitations General appearance: alert, in no apparent distress Head exam: Present: atraumatic, normocephalic, normal inspection Eye exam: Present: normal appearance, EOMI ENT exam: Present: normal exam, normal oropharynx, mucous membranes moist Neck exam: Present: normal inspection, full ROM. Absent: tenderness, meningismus, lymphadenopathy, thyromegaly Respiratory exam: Present: normal lung sounds bilaterally. Absent: respiratory distress, wheezes, rales, rhonchi, stridor Cardiovascular Exam: Present: regular rate, normal rhythm, normal heart sounds. Absent: systolic murmur, diastolic murmur, rubs, gallop, clicks GI/Abdominal exam: Present: soft, normal bowel sounds. Absent: distended, tenderness, guarding, rebound, rigid Extremities exam: Present: normal inspection, full ROM, normal capillary refill. Absent: tenderness, pedal edema, joint swelling, calf tenderness Back exam: Present: normal inspection, full ROM. Absent: tenderness, CVA tenderness (R), CVA tenderness (L), rash noted Neurological exam: Present: alert, oriented X3 Psychiatric exam: Present: anxious Skin exam: Present: warm, dry, intact, normal color. Absent: rash, cyanosis, diaphoretic, petechiae, pallor Course Vital Signs 04/18/21 17:39 Temperature 97.8 F Pulse Rate 76 Respiratory 16 Rate Blood Pressure 128/84 O2 Sat by Pulse 100 Oximetry EKG Findings - EKG Results: EKG: sinus rhythm (Sinus rhythm with a ventricular rate of 72, HI interval of 0.114, QRS 0.106, QTC 0.440), not changed from: (04/12/21) Medical Decision Making - Medical Decision Making 55-year-old male presents to the emergency room with one hour of substernal chest pain radiating to his left armpit. Patient states it occurred while watching TV. He states that he is also complaining of dizziness when walking about 30 minutes ago. He has a history of osteoarthritis, and seizures which he treats with smoking marijuana. He also has a history of anxiety. He denies any fevers, nausea vomiting or diarrhea. Nurse states pt left the hospital without completing treatment. His vital signs were stable lungs sounds are clear. He did have a stress test in November of this year. He was seen for chest pain on April 12 as well. I did notify Dr. Rodriguez of his elopement. - Lab Data Result diagrams: 04/18/21 18:17 04/18/21 18:17 Lab Results 04/18/21 04/18/21 04/18/21 Range/Units 18:17 18:17 18:17 WBC 7.5 (3.8-10.6) k/uL RBC 4.39 (4.30-5.90) m/uL Hgb 14.0 D (13.0-17.5) gm/dL Hct 42.3 (39.0-53.0) % MCV 96.4 (80.0-100.0) fL MCH 31.9 (25.0-35.0) pg MCHC 33.1 (31.0-37.0) g/dL RDW 13.5 (11.5-15.5) % Plt Count 319 (150-450) k/uL MPV 7.7 Neutrophils % 54 % Lymphocytes % 31 % Monocytes % 8 % Eosinophils % 3 % Basophils % 1 % Neutrophils # 4.1 (1.3-7.7) k/uL Lymphocytes # 2.4 (1.0-4.8) k/uL Monocytes # 0.6 (0-1.0) k/uL Eosinophils # 0.2 (0-0.7) k/uL Basophils # 0.1 (0-0.2) k/uL Sodium 140 (137-145) mmol/L Potassium 4.1 (3.5-5.1) mmol/L Chloride 106 (98-107) mmol/L Carbon Dioxide 28 (22-30) mmol/L Anion Gap 6 mmol/L BUN 15 (9-20) mg/dL Creatinine 0.65 L (0.66-1.25) mg/dL Est GFR (CKD-EPI)AfAm >90 (>60 ml/min/1.73 sqM) Est GFR (CKD-EPI)NonAf >90 (>60 ml/min/1.73 sqM) Glucose 68 L (74-99) mg/dL Calcium 9.4 (8.4-10.2) mg/dL Magnesium 2.1 (1.6-2.3) mg/dL Total Bilirubin 0.2 (0.2-1.3) mg/dL AST 25 (17-59) U/L ALT 16 (4-49) U/L Alkaline Phosphatase 67 (38-126) U/L Troponin I (0.000-0.034) ng/mL Total Protein 7.1 (6.3-8.2) g/dL Albumin 4.0 (3.5-5.0) g/dL Urine Color Yellow Urine Appearance Cloudy (Clear) Urine pH 5.5 (5.0-8.0) Ur Specific [place] 1.023 (1.001-1.035) Urine Protein Negative (Negative) Urine Glucose (UA) Negative (Negative) Urine Ketones Negative (Negative) Urine Blood Negative (Negative) Urine Nitrite Negative (Negative) Urine Bilirubin Negative (Negative) Urine Urobilinogen 2.0 (<2.0) mg/dL Ur Leukocyte Esterase Small H (Negative) Urine RBC 12 H (0-5) /hpf Urine WBC 19 H (0-5) /hpf Ur Squamous Epith Cells <1 (0-4) /hpf Urine Bacteria Rare H (None) /hpf Urine Mucus Occasional H (None) /hpf Urine Opiates Screen Not Detected (NotDetected) Ur Oxycodone Screen Not Detected (NotDetected) Urine Methadone Screen Not Detected (NotDetected) Ur Propoxyphene Screen Not Detected (NotDetected) Ur Barbiturates Screen Not Detected (NotDetected) U Tricyclic Antidepress Not Detected (NotDetected) Ur Phencyclidine Scrn Not Detected (NotDetected) Ur Amphetamines Screen Not Detected (NotDetected) U Methamphetamines Scrn Not Detected (NotDetected) U Benzodiazepines Scrn Not Detected (NotDetected) Urine Cocaine Screen Not Detected (NotDetected) U Marijuana (THC) Screen Detected H (NotDetected) 04/18/21 Range/Units 18:17 WBC (3.8-10.6) k/uL RBC (4.30-5.90) m/uL Hgb (13.0-17.5) gm/dL Hct (39.0-53.0) % MCV (80.0-100.0) fL MCH (25.0-35.0) pg MCHC (31.0-37.0) g/dL RDW (11.5-15.5) % Plt Count (150-450) k/uL MPV Neutrophils % % Lymphocytes % % Monocytes % % Eosinophils % % Basophils % % Neutrophils # (1.3-7.7) k/uL Lymphocytes # (1.0-4.8) k/uL Monocytes # (0-1.0) k/uL Eosinophils # (0-0.7) k/uL Basophils # (0-0.2) k/uL Sodium (137-145) mmol/L Potassium (3.5-5.1) mmol/L Chloride (98-107) mmol/L Carbon Dioxide (22-30) mmol/L Anion Gap mmol/L BUN (9-20) mg/dL Creatinine (0.66-1.25) mg/dL Est GFR (CKD-EPI)AfAm (>60 ml/min/1.73 sqM) Est GFR (CKD-EPI)NonAf (>60 ml/min/1.73 sqM) Glucose (74-99) mg/dL Calcium (8.4-10.2) mg/dL Magnesium (1.6-2.3) mg/dL Total Bilirubin (0.2-1.3) mg/dL AST (17-59) U/L ALT (4-49) U/L Alkaline Phosphatase (38-126) U/L Troponin I <0.012 (0.000-0.034) ng/mL Total Protein (6.3-8.2) g/dL Albumin (3.5-5.0) g/dL Urine Color Urine Appearance (Clear) Urine pH (5.0-8.0) Ur Specific [place] (1.001-1.035) Urine Protein (Negative) Urine Glucose (UA) (Negative) Urine Ketones (Negative) Urine Blood (Negative) Urine Nitrite (Negative) Urine Bilirubin (Negative) Urine Urobilinogen (<2.0) mg/dL Ur Leukocyte Esterase (Negative) Urine RBC (0-5) /hpf Urine WBC (0-5) /hpf Ur Squamous Epith Cells (0-4) /hpf Urine Bacteria (None) /hpf Urine Mucus (None) /hpf Urine Opiates Screen (NotDetected) Ur Oxycodone Screen (NotDetected) Urine Methadone Screen (NotDetected) Ur Propoxyphene Screen (NotDetected) Ur Barbiturates Screen (NotDetected) U Tricyclic Antidepress (NotDetected) Ur Phencyclidine Scrn (NotDetected) Ur Amphetamines Screen (NotDetected) U Methamphetamines Scrn (NotDetected) U Benzodiazepines Scrn (NotDetected) Urine Cocaine Screen (NotDetected) U Marijuana (THC) Screen (NotDetected) Disposition Clinical Impression: Chest pain Disposition: Left Against Medical Advice Condition: Undetermined Referrals: [facility] [Primary Care Provider] - 1-2 days Time of Disposition: 18:40
[2021-04-18] MEDS ORDERED: ASPIRIN 81 MG PO STA (18:01)
[2021-04-18 18:29] LABS: Basophils # (A) 0.1 k/uL (0-0.2); Basophils % (A) 1 %; Eosinophils # (A) 0.2 k/uL (0-0.7); Eosinophils % (A) 3 %; HCT 42.3 % (39.0-53.0); Lymphocytes # (A) 2.4 k/uL (1.0-4.8); Lymphocytes % (A) 31 %; MCH 31.9 pg (25.0-35.0); MCHC 33.1 g/dL (31.0-37.0); MCV 96.4 fL (80.0-100.0); Mean Platelet Volume 7.7; Monocytes # (A) 0.6 k/uL (0-1.0); Monocytes % (A) 8 %; Neutrophils # (A) 4.1 k/uL (1.3-7.7); Neutrophils % (A) 54 %; Platelet Count 319 k/uL (150-450); RBC 4.39 m/uL (4.30-5.90); RDW 13.5 % (11.5-15.5); WBC 7.5 k/uL (3.8-10.6)
[2021-04-18 18:39] LABS: ALT 16 U/L (4-49); AST 25 U/L (17-59); African American GFR (CKD) >90 (>60 ml/min/1.73 sqM); Alkaline Phosphatase 67 U/L (38-126); Anion Gap 6 mmol/L; Blood Urea Nitrogen 15 mg/dL (9-20); Calcium 9.4 mg/dL (8.4-10.2); Carbon Dioxide 28 mmol/L (22-30); Chloride 106 mmol/L (98-107); Glucose 68 mg/dL (74-99); Magnesium 2.1 mg/dL (1.6-2.3); Non-African American GFR(CKD) >90 (>60 ml/min/1.73 sqM); Potassium 4.1 mmol/L (3.5-5.1); Sodium 140 mmol/L (137-145); Total Bilirubin 0.2 mg/dL (0.2-1.3); Total Protein 7.1 g/dL (6.3-8.2)
[2021-04-18 18:59] LABS: Appearance,Urine Cloudy (Clear); Bacteria,Urine Rare /hpf; Bilirubin,Urine Negative (Negative); Blood,Urine Negative (Negative); Color,Urine Yellow; Glucose,Urine (UA) Negative (Negative); Ketones,Urine Negative (Negative); Leukocyte Esterase,Urine Small (Negative); Mucus,Urine Occasional /hpf; Nitrite,Urine Negative (Negative); PH, Urine 5.5 (5.0-8.0); Protein,Urine Negative (Negative); RBC,Urine 12 /hpf (0-5); Specific Gravity,Urine 1.023 (1.001-1.035); Squamous Epithelial Cell,Urine <1 /hpf (0-4); WBC,Urine 19 /hpf (0-5)
[2021-04-18 19:09] LABS: Amphetamine Screen,Urine Not Detected (NotDetected); Barbiturate Screen,Urine Not Detected (NotDetected); Benzodiazepines Screen,Urine Not Detected (NotDetected); Cocaine Screen,Urine Not Detected (NotDetected); Methadone Screen, Urine Not Detected (NotDetected); Opiate Screen,Urine Not Detected (NotDetected); Oxycodone Screen, Urine Not Detected (NotDetected); Phencyclidine Screen,Urine Not Detected (NotDetected); Tricyclic Antidepressant,Urine Not Detected (NotDetected); Urn Cannabinoid Scrn Detected (NotDetected)
== END 2021-04-18 18:53 | disposition left against medical advice (07) ==
LOC: EC 17:35
DX: R07.2 Precordial pain (principal); R42 Dizziness and giddiness; F17.200 Nicotine dependence, unspecified, uncomplicated; Z88.8 Allergy status to other drugs, medicaments and biological substances
CPT/HCPCS: 36415; 80053; 80306; 81001; 83735; 84484; 85025; 87086; 93005; 99285

== ENCOUNTER 2021-06-21 18:07 | Emergency (ER) | payer MEDICARE, OTHER ==
[2021-06-21 18:15] VITALS: BP 160/88; PULSE 76; RESP 18; TEMP 98.9
[2021-06-21] MEDS ORDERED: MORPHINE SULFATE 4 MG/ML SYRINGE IVP STA (19:13)
[2021-06-21 19:14] LABS: Basophils # (A) 0.1 k/uL (0-0.2); Basophils % (A) 1 %; Eosinophils # (A) 0.3 k/uL (0-0.7); Eosinophils % (A) 4 %; HCT 39.3 % (39.0-53.0); HGB 13.4 gm/dL (13.0-17.5); Lymphocytes # (A) 2.1 k/uL (1.0-4.8); Lymphocytes % (A) 33 %; MCH 32.6 pg (25.0-35.0); MCV 95.9 fL (80.0-100.0); Mean Platelet Volume 8.1; Monocytes # (A) 0.5 k/uL (0-1.0); Monocytes % (A) 8 %; Neutrophils # (A) 3.2 k/uL (1.3-7.7); Neutrophils % (A) 51 %; Platelet Count 229 k/uL (150-450); RBC 4.09 m/uL (4.30-5.90); RDW 12.9 % (11.5-15.5); WBC 6.3 k/uL (3.8-10.6)
[2021-06-21 19:23] LABS: ALT 18 U/L (4-49); AST 31 U/L (17-59); African American GFR (CKD) >90 (>60 ml/min/1.73 sqM); Albumin 3.8 g/dL (3.5-5.0); Alkaline Phosphatase 60 U/L (38-126); Anion Gap 6 mmol/L; Blood Urea Nitrogen 17 mg/dL (9-20); Calcium 9.6 mg/dL (8.4-10.2); Carbon Dioxide 29 mmol/L (22-30); Chloride 105 mmol/L (98-107); Glucose 75 mg/dL (74-99); Magnesium 1.7 mg/dL (1.6-2.3); Non-African American GFR(CKD) >90 (>60 ml/min/1.73 sqM); Potassium 4.1 mmol/L (3.5-5.1); Sodium 140 mmol/L (137-145); Total Bilirubin 0.3 mg/dL (0.2-1.3)
[2021-06-21 19:28] LABS: Partial Thromboplastin Time 25.5 sec (22.0-30.0); Prothrombin Time 10.8 sec (9.0-12.0)
--- NOTE | 2021-06-21 19:34 | ED ---
General Adult HPI - General Chief complaint: Chest Pain Stated complaint: chest pain Time Seen by Provider: 06/21/21 18:15 Source: patient, RN notes reviewed, old records reviewed Mode of arrival: EMS Limitations: no limitations - History of Present Illness Initial comments: 55 yo male presenting for evaluation of anxiety and anterior chest pain. This is been ongoing for approximately 12 hours. He states he's had multiple episodes similar to this in the past. He has no previous known diagnosis of CAD. No history of DVT or PE. States the pain does not radiate. He's had no cough or fever. No significant dyspnea. He does have a known history of anxiety and uses marijuana to medicate. - Related Data Home Medications Medication Instructions Recorded Confirmed Ibuprofen [Motrin Ib] 800 mg PO Q8H PRN 11/15/20 06/21/21 Aspirin EC [Ecotrin] 325 mg PO Q8H PRN 06/21/21 06/21/21 traMADol HCL 50 mg PO QID PRN 06/21/21 06/21/21 Allergies Allergy/AdvReac Type Severity Reaction Status Date / Time buspirone [From BuSpar] AdvReac Anaphylaxis Verified 06/21/21 19:16 diphenhydramine HCl AdvReac Rapid Verified 06/21/21 19:16 [From Benadryl] Heart Rate Review of Systems ROS Statement: Those systems with pertinent positive or pertinent negative responses have been documented in the HPI. ROS Other: All systems not noted in ROS Statement are negative. Past Medical History Past Medical History: Osteoarthritis (OA), Seizure Disorder Additional Past Medical History / Comment(s): epilepsy, chronic back/neck pain, hepatitis C,A and Hep B History of Any Multi-Drug Resistant Organisms: None Reported Past Surgical History: Hernia Repair Additional Past Surgical History / Comment(s): R inguinal hernia repair, L arm benign tumor excision. Past Anesthesia/Blood Transfusion Reactions: No Reported Reaction Past Psychological History: Anxiety, Depression Smoking Status: Current some day smoker Past Alcohol Use History: Occasional Past Drug Use History: Marijuana - Past Family History Father Family Medical History: Cancer Additional Family Medical History / Comment(s): lung/liver cancer. He is . Mother Family Medical History: Cancer Additional Family Medical History / Comment(s): Mother of lung cancer. She was a smoker. General Exam Limitations: no limitations General appearance: alert, in no apparent distress, anxious Head exam: Present: atraumatic, normocephalic Eye exam: Present: normal appearance, PERRL ENT exam: Present: normal exam Neck exam: Present: normal inspection. Absent: tenderness, meningismus Respiratory exam: Present: normal lung sounds bilaterally. Absent: respiratory distress, wheezes, rales Cardiovascular Exam: Present: regular rate, normal rhythm GI/Abdominal exam: Present: soft. Absent: distended, tenderness Extremities exam: Present: normal inspection, normal capillary refill. Absent: pedal edema, calf tenderness Neurological exam: Present: alert, oriented X3, CN II-XII intact. Absent: motor sensory deficit Psychiatric exam: Present: anxious. Absent: suicidal ideation Skin exam: Present: warm, dry, intact. Absent: cyanosis, diaphoretic Course Vital Signs 06/21/21 18:08 Temperature 98.9 F Pulse Rate 76 Respiratory 18 Rate Blood Pressure 160/88 O2 Sat by Pulse 99 Oximetry EKG Findings - EKG Comments: EKG Findings:: EKG: Sinus rhythm ventricular rate is 71, AL interval 117, QRS duration 101, QTC 429, no ST segment elevation, T waves are upright. Short AL. Medical Decision Making - Medical Decision Making Patient eloped prior to completion of his evaluation and treatment. He pulled out his IV and exited the facility. I did not have a chance to speak with the patient prior to elopement. - Lab Data Result diagrams: 06/21/21 18:57 06/21/21 18:57 Lab Results 06/21/21 06/21/21 06/21/21 Range/Units 18:57 18:57 18:57 WBC 6.3 (3.8-10.6) k/uL RBC 4.09 L (4.30-5.90) m/uL Hgb 13.4 (13.0-17.5) gm/dL Hct 39.3 (39.0-53.0) % MCV 95.9 (80.0-100.0) fL MCH 32.6 (25.0-35.0) pg MCHC 34.0 (31.0-37.0) g/dL RDW 12.9 (11.5-15.5) % Plt Count 229 (150-450) k/uL MPV 8.1 Neutrophils % 51 % Lymphocytes % 33 % Monocytes % 8 % Eosinophils % 4 % Basophils % 1 % Neutrophils # 3.2 (1.3-7.7) k/uL Lymphocytes # 2.1 (1.0-4.8) k/uL Monocytes # 0.5 (0-1.0) k/uL Eosinophils # 0.3 (0-0.7) k/uL Basophils # 0.1 (0-0.2) k/uL PT 10.8 (9.0-12.0) sec INR 1.0 (<1.2) APTT 25.5 (22.0-30.0) sec Sodium 140 (137-145) mmol/L Potassium 4.1 (3.5-5.1) mmol/L Chloride 105 (98-107) mmol/L Carbon Dioxide 29 (22-30) mmol/L Anion Gap 6 mmol/L BUN 17 (9-20) mg/dL Creatinine 0.72 (0.66-1.25) mg/dL Est GFR (CKD-EPI)AfAm >90 (>60 ml/min/1.73 sqM) Est GFR (CKD-EPI)NonAf >90 (>60 ml/min/1.73 sqM) Glucose 75 (74-99) mg/dL Calcium 9.6 (8.4-10.2) mg/dL Magnesium 1.7 (1.6-2.3) mg/dL Total Bilirubin 0.3 (0.2-1.3) mg/dL AST 31 (17-59) U/L ALT 18 (4-49) U/L Alkaline Phosphatase 60 (38-126) U/L Troponin I (0.000-0.034) ng/mL Total Protein 7.0 (6.3-8.2) g/dL Albumin 3.8 (3.5-5.0) g/dL 06/21/21 Range/Units 18:57 WBC (3.8-10.6) k/uL RBC (4.30-5.90) m/uL Hgb (13.0-17.5) gm/dL Hct (39.0-53.0) % MCV (80.0-100.0) fL MCH (25.0-35.0) pg MCHC (31.0-37.0) g/dL RDW (11.5-15.5) % Plt Count (150-450) k/uL MPV Neutrophils % % Lymphocytes % % Monocytes % % Eosinophils % % Basophils % % Neutrophils # (1.3-7.7) k/uL Lymphocytes # (1.0-4.8) k/uL Monocytes # (0-1.0) k/uL Eosinophils # (0-0.7) k/uL Basophils # (0-0.2) k/uL PT (9.0-12.0) sec INR (<1.2) APTT (22.0-30.0) sec Sodium (137-145) mmol/L Potassium (3.5-5.1) mmol/L Chloride (98-107) mmol/L Carbon Dioxide (22-30) mmol/L Anion Gap mmol/L BUN (9-20) mg/dL Creatinine (0.66-1.25) mg/dL Est GFR (CKD-EPI)AfAm (>60 ml/min/1.73 sqM) Est GFR (CKD-EPI)NonAf (>60 ml/min/1.73 sqM) Glucose (74-99) mg/dL Calcium (8.4-10.2) mg/dL Magnesium (1.6-2.3) mg/dL Total Bilirubin (0.2-1.3) mg/dL AST (17-59) U/L ALT (4-49) U/L Alkaline Phosphatase (38-126) U/L Troponin I <0.012 (0.000-0.034) ng/mL Total Protein (6.3-8.2) g/dL Albumin (3.5-5.0) g/dL Disposition Clinical Impression: Chest pain Disposition: Left Against Medical Advice Condition: Undetermined Is patient prescribed a controlled substance at d/c from ED?: No Referrals: [facility] [Primary Care Provider] - 1-2 days
== END 2021-06-21 20:10 | disposition left against medical advice (07) ==
LOC: EC 18:07
DX: R07.9 Chest pain, unspecified (principal); F17.200 Nicotine dependence, unspecified, uncomplicated; Z53.29 Procedure and treatment not carried out because of patient's decision for other reasons; Z79.82 Long term (current) use of aspirin; Z88.8 Allergy status to other drugs, medicaments and biological substances
CPT/HCPCS: 36415; 80053; 83735; 84484; 85025; 85610; 85730; 93005; 99285

== ENCOUNTER 2021-07-06 01:07 | Emergency (ER) | payer MEDICARE, OTHER ==
[2021-07-06 01:21] VITALS: TEMP 97.9
[2021-07-06 01:44] LABS: Glucose,Whole Blood 143 mg/dL (75-99)
[2021-07-06] MEDS ORDERED: SODIUM CHLORIDE 0.9% 500 ML 500 ML IV STA (03:38)
[2021-07-06 04:06] LABS: Basophils # (A) 0.1 k/uL (0-0.2); Basophils % (A) 1 %; Eosinophils # (A) 0.4 k/uL (0-0.7); Eosinophils % (A) 6 %; HCT 38.6 % (39.0-53.0); HGB 13.1 gm/dL (13.0-17.5); Lymphocytes # (A) 1.8 k/uL (1.0-4.8); Lymphocytes % (A) 25 %; MCH 32.4 pg (25.0-35.0); MCHC 33.9 g/dL (31.0-37.0); MCV 95.4 fL (80.0-100.0); Mean Platelet Volume 7.8; Monocytes # (A) 0.5 k/uL (0-1.0); Monocytes % (A) 7 %; Neutrophils # (A) 4.3 k/uL (1.3-7.7); Neutrophils % (A) 60 %; Platelet Count 233 k/uL (150-450); RBC 4.04 m/uL (4.30-5.90); RDW 12.6 % (11.5-15.5); WBC 7.1 k/uL (3.8-10.6)
[2021-07-06 04:15] LABS: ALT 24 U/L (4-49); AST 48 U/L (17-59); African American GFR (CKD) >90 (>60 ml/min/1.73 sqM); Albumin 3.8 g/dL (3.5-5.0); Alkaline Phosphatase 64 U/L (38-126); Anion Gap 6 mmol/L; Blood Urea Nitrogen 25 mg/dL (9-20); Calcium 8.9 mg/dL (8.4-10.2); Carbon Dioxide 25 mmol/L (22-30); Chloride 104 mmol/L (98-107); Glucose 94 mg/dL (74-99); Non-African American GFR(CKD) >90 (>60 ml/min/1.73 sqM); Potassium 4.1 mmol/L (3.5-5.1); Sodium 135 mmol/L (137-145); Total Bilirubin 0.4 mg/dL (0.2-1.3); Total Protein 6.9 g/dL (6.3-8.2)
--- NOTE | 2021-07-06 05:32 | ED ---
General Adult HPI - General Chief complaint: Recheck/Abnormal Lab/Rx Stated complaint: Foot pain Time Seen by Provider: 07/06/21 03:29 Source: patient Mode of arrival: ambulatory Limitations: no limitations - History of Present Illness Initial comments: This patient is a 55-year-old man who presents to be evaluated because he states it feels like his equilibrium is off. Patient states this been going on for this evening. He was concerned that it may be related to his blood sugar. Patient has not had fever or chills. No headache. No neurologic symptoms. No chest pain or dyspnea. -: hour(s) Severity scale (1-10): 0 Improves with: none Worsens with: movement Associated Symptoms: denies other symptoms - Related Data Home Medications Medication Instructions Recorded Confirmed Ibuprofen [Motrin Ib] 800 mg PO Q8H PRN 11/15/20 06/21/21 Aspirin EC [Ecotrin] 325 mg PO Q8H PRN 06/21/21 06/21/21 traMADol HCL 50 mg PO QID PRN 06/21/21 06/21/21 Allergies Allergy/AdvReac Type Severity Reaction Status Date / Time buspirone [From BuSpar] AdvReac Anaphylaxis Verified 07/06/21 01:20 diphenhydramine HCl AdvReac Rapid Verified 07/06/21 01:20 [From Benadryl] Heart Rate Review of Systems ROS Statement: Those systems with pertinent positive or pertinent negative responses have been documented in the HPI. ROS Other: All systems not noted in ROS Statement are negative. Constitutional: Denies: fever, chills, weakness Respiratory: Denies: cough, dyspnea Cardiovascular: Denies: chest pain, syncope Gastrointestinal: Denies: abdominal pain, vomiting, diarrhea Genitourinary: Denies: dysuria, hematuria Musculoskeletal: Denies: back pain Skin: Denies: rash Neurological: Denies: headache, weakness Past Medical History Past Medical History: Osteoarthritis (OA), Seizure Disorder Additional Past Medical History / Comment(s): epilepsy, chronic back/neck pain, hepatitis C,A and Hep B History of Any Multi-Drug Resistant Organisms: None Reported Past Surgical History: Hernia Repair Additional Past Surgical History / Comment(s): R inguinal hernia repair, L arm benign tumor excision. Past Anesthesia/Blood Transfusion Reactions: No Reported Reaction Past Psychological History: Anxiety, Depression Smoking Status: Current some day smoker Past Alcohol Use History: Occasional Past Drug Use History: Marijuana - Past Family History Father Family Medical History: Cancer Additional Family Medical History / Comment(s): lung/liver cancer. He is . Mother Family Medical History: Cancer Additional Family Medical History / Comment(s): Mother of lung cancer. She was a smoker. General Exam Limitations: no limitations General appearance: alert, in no apparent distress Head exam: Present: atraumatic, normocephalic Eye exam: Present: normal appearance. Absent: scleral icterus, conjunctival injection Neck exam: Present: normal inspection Respiratory exam: Present: normal lung sounds bilaterally. Absent: respiratory distress, wheezes, rales, rhonchi, stridor Cardiovascular Exam: Present: regular rate, normal rhythm, normal heart sounds. Absent: systolic murmur, diastolic murmur, rubs, gallop GI/Abdominal exam: Present: soft. Absent: distended, tenderness, guarding, rebound, rigid, mass Extremities exam: Present: normal inspection Back exam: Present: normal inspection Neurological exam: Present: alert, oriented X3, CN II-XII intact. Absent: motor sensory deficit Skin exam: Present: warm, dry, intact, normal color. Absent: rash Course Vital Signs 07/06/21 01:17 Temperature 97.9 F Pulse Rate 50 L Respiratory 18 Rate Blood Pressure 170/96 O2 Sat by Pulse 95 Oximetry Medical Decision Making - Lab Data Result diagrams: 07/06/21 03:38 07/06/21 03:38 Lab Results 07/06/21 07/06/21 07/06/21 Range/Units 01:41 03:38 03:38 WBC 7.1 (3.8-10.6) k/uL RBC 4.04 L (4.30-5.90) m/uL Hgb 13.1 (13.0-17.5) gm/dL Hct 38.6 L (39.0-53.0) % MCV 95.4 (80.0-100.0) fL MCH 32.4 (25.0-35.0) pg MCHC 33.9 (31.0-37.0) g/dL RDW 12.6 (11.5-15.5) % Plt Count 233 (150-450) k/uL MPV 7.8 Neutrophils % 60 % Lymphocytes % 25 % Monocytes % 7 % Eosinophils % 6 % Basophils % 1 % Neutrophils # 4.3 (1.3-7.7) k/uL Lymphocytes # 1.8 (1.0-4.8) k/uL Monocytes # 0.5 (0-1.0) k/uL Eosinophils # 0.4 (0-0.7) k/uL Basophils # 0.1 (0-0.2) k/uL Sodium 135 L (137-145) mmol/L Potassium 4.1 (3.5-5.1) mmol/L Chloride 104 (98-107) mmol/L Carbon Dioxide 25 (22-30) mmol/L Anion Gap 6 mmol/L BUN 25 H (9-20) mg/dL Creatinine 0.68 (0.66-1.25) mg/dL Est GFR (CKD-EPI)AfAm >90 (>60 ml/min/1.73 sqM) Est GFR (CKD-EPI)NonAf >90 (>60 ml/min/1.73 sqM) Glucose 94 (74-99) mg/dL POC Glucose (mg/dL) 143 H (75-99) mg/dL POC Glu [place] ID Pooja Sam Calcium 8.9 (8.4-10.2) mg/dL Total Bilirubin 0.4 (0.2-1.3) mg/dL AST 48 (17-59) U/L ALT 24 (4-49) U/L Alkaline Phosphatase 64 (38-126) U/L Total Protein 6.9 (6.3-8.2) g/dL Albumin 3.8 (3.5-5.0) g/dL Disposition Clinical Impression: Dehydration Disposition: HOME SELF-CARE Condition: Good Instructions (If sedation given, give patient instructions): Dehydration (ED) Is patient prescribed a controlled substance at d/c from ED?: No Referrals: [facility] [Primary Care Provider] - 1-2 days
[2021-07-06 05:33] VITALS: RESP 16
[2021-07-06 05:54] VITALS: BP 168/89; PULSE 74
== END 2021-07-06 06:01 | disposition home or self-care (01) ==
LOC: EC 01:07
DX: E86.0 Dehydration (principal)
CPT/HCPCS: 36415; 80053; 85025; 96360; 99283

== ENCOUNTER 2021-10-04 23:18 | Emergency (ER) | payer MEDICARE, OTHER ==
--- NOTE | 2021-10-04 23:51 | ED ---
Chest Pain HPI - General Stated Complaint: Chest pain Time Seen by Provider: 10/04/21 23:26 Source: RN notes reviewed, old records reviewed Limitations: no limitations - History of Present Illness Initial Comments: This is a 55-year-old male well-known to our facility patient does suffer from anxiety and stress patient coming in today with chest pain no prior history of significant coronary event. No travel history no sick contacts no fever cough or congestion chest pain has been intermittent for greater than one day. No shortness of breath no sweating MD Complaint: chest pain -: year(s) Onset: during rest, during exertion Pain Location: left chest Pain Radiation: none Severity: mild Severity scale (1-10): 3 Quality: aching Consistency: intermittent Improves With: nothing Worsens With: nothing Anginal Symptoms: sense of impending doom (Patient suffers anxiety) Other Symptoms: palpitations Treatments Prior to Arrival: none - Related Data Home Medications Medication Instructions Recorded Confirmed Ibuprofen [Motrin Ib] 800 mg PO Q8H PRN 11/15/20 06/21/21 Aspirin EC [Ecotrin] 325 mg PO Q8H PRN 06/21/21 06/21/21 traMADol HCL 50 mg PO QID PRN 06/21/21 06/21/21 Allergies Allergy/AdvReac Type Severity Reaction Status Date / Time buspirone [From BuSpar] AdvReac Anaphylaxis Verified 10/05/21 00:08 diphenhydramine HCl AdvReac Rapid Verified 10/05/21 00:08 [From Benadryl] Heart Rate Review of Systems ROS Statement: Those systems with pertinent positive or pertinent negative responses have been documented in the HPI. ROS Other: All systems not noted in ROS Statement are negative. EKG Findings - EKG Comments: EKG Findings:: EKG sinus rhythm rate of 70 HI 113 QRS 91 QTC 418 Past Medical History Past Medical History: Osteoarthritis (OA), Seizure Disorder Additional Past Medical History / Comment(s): epilepsy, chronic back/neck pain, hepatitis C,A and Hep B History of Any Multi-Drug Resistant Organisms: None Reported Past Surgical History: Hernia Repair Additional Past Surgical History / Comment(s): R inguinal hernia repair, L arm benign tumor excision. Past Anesthesia/Blood Transfusion Reactions: No Reported Reaction Past Psychological History: Anxiety, Depression Smoking Status: Current some day smoker Past Alcohol Use History: Occasional Past Drug Use History: Marijuana - Past Family History Father Family Medical History: Cancer Additional Family Medical History / Comment(s): lung/liver cancer. He is . Mother Family Medical History: Cancer Additional Family Medical History / Comment(s): Mother of lung cancer. She was a smoker. General Exam General appearance: alert, in no apparent distress Head exam: Present: atraumatic, normocephalic, normal inspection Eye exam: Present: normal appearance, PERRL, EOMI. Absent: scleral icterus, conjunctival injection, periorbital swelling ENT exam: Present: normal exam, mucous membranes moist Neck exam: Present: normal inspection. Absent: tenderness, meningismus, lymphadenopathy Respiratory exam: Present: normal lung sounds bilaterally. Absent: respiratory distress, wheezes, rales, rhonchi, stridor Cardiovascular Exam: Present: regular rate, normal rhythm, normal heart sounds. Absent: systolic murmur, diastolic murmur, rubs, gallop, clicks GI/Abdominal exam: Present: soft, normal bowel sounds. Absent: distended, tenderness, guarding, rebound, rigid Extremities exam: Present: normal inspection, full ROM, normal capillary refill. Absent: tenderness, pedal edema, joint swelling, calf tenderness Back exam: Present: normal inspection Neurological exam: Present: alert, oriented X3, CN II-XII intact Psychiatric exam: Present: normal affect, normal mood Skin exam: Present: warm, dry, intact, normal color. Absent: rash Course Vital Signs 10/04/21 10/04/21 10/05/21 23:20 23:45 02:00 Temperature 97.8 F 98.6 F Pulse Rate 73 74 Pulse Rate [ 78 [employer] ] Respiratory 18 18 Rate Blood Pressure 161/90 160/88 O2 Sat by Pulse 97 98 Oximetry - Reevaluation(s) Reevaluation #1: 10/05/21 Medical record is reviewed Reevaluation #2: 10/05/21 Patient feels improved here in the ER Reevaluation #3: 10/05/21 Patient informed of results and questions answered Chest Pain MDM - MDM 55 male with nonspecific chest pain. Anxiety reaction. Patient can be disc harged home Disposition Clinical Impression: Atypical chest pain, Chest pain, Panic attack Disposition: HOME SELF-CARE Condition: Fair Instructions (If sedation given, give patient instructions): Chest Pain (ED) Is patient prescribed a controlled substance at d/c from ED?: No Referrals: [facility] [Primary Care Provider] - 1-2 days Decision Time: 02:05
[2021-10-05 00:08] VITALS: RESP 18
[2021-10-05 00:15] LABS: Basophils % (A) 1 %; Eosinophils # (A) 0.2 k/uL (0-0.7); Eosinophils % (A) 3 %; HGB 12.8 gm/dL (13.0-17.5); Lymphocytes # (A) 1.8 k/uL (1.0-4.8); Lymphocytes % (A) 26 %; MCH 31.2 pg (25.0-35.0); MCHC 32.9 g/dL (31.0-37.0); MCV 94.7 fL (80.0-100.0); Mean Platelet Volume 7.8; Monocytes # (A) 0.4 k/uL (0-1.0); Monocytes % (A) 5 %; Neutrophils # (A) 4.5 k/uL (1.3-7.7); Neutrophils % (A) 64 %; Platelet Count 233 k/uL (150-450); RBC 4.12 m/uL (4.30-5.90); RDW 12.9 % (11.5-15.5)
[2021-10-05 00:24] LABS: Partial Thromboplastin Time 24.5 sec (22.0-30.0); Prothrombin Time 11.2 sec (9.0-12.0)
--- NOTE | 2021-10-05 00:31 | XR ---
EXAMINATION TYPE: XR chest 2V DATE OF EXAM: 10/05/2021 COMPARISON: 04/12/2021 HISTORY: Chest pain TECHNIQUE: 2 views FINDINGS: Heart is normal. Lungs are clear of infiltrate. No heart failure. There are no hilar masses . There are chest leads. IMPRESSION: No active cardiopulmonary disease. No change.
[2021-10-05 00:37] LABS: ALT 13 U/L (4-49); AST 22 U/L (17-59); African American GFR (CKD) >90 (>60 ml/min/1.73 sqM); Albumin 4.1 g/dL (3.5-5.0); Alkaline Phosphatase 53 U/L (38-126); Anion Gap 7 mmol/L; Blood Urea Nitrogen 17 mg/dL (9-20); Carbon Dioxide 25 mmol/L (22-30); Chloride 106 mmol/L (98-107); Glucose 96 mg/dL (74-99); Non-African American GFR(CKD) >90 (>60 ml/min/1.73 sqM); Potassium 4.2 mmol/L (3.5-5.1); Sodium 138 mmol/L (137-145); Total Bilirubin 0.1 mg/dL (0.2-1.3)
[2021-10-05] MEDS ORDERED: MORPHINE SULFATE 2 MG/ML SYRINGE IVP STA (01:04)
[2021-10-05] MEDS ORDERED: LORazepam 1 MG TAB PO STA (01:59)
[2021-10-05 02:15] VITALS: BP 160/88; PULSE 74; TEMP 98.6
== END 2021-10-05 02:13 | disposition home or self-care (01) ==
LOC: EC 23:18
DX: R07.89 Other chest pain (principal); F41.0 Panic disorder [episodic paroxysmal anxiety]; F17.200 Nicotine dependence, unspecified, uncomplicated; Z88.8 Allergy status to other drugs, medicaments and biological substances
CPT/HCPCS: 36415; 93005; 80053; 84484; 85025; 85610; 85730; 71046; 99285; 96374; J2270

== ENCOUNTER 2021-11-14 03:14 | Emergency (ER) | payer MEDICARE, OTHER ==
[2021-11-14] MEDS ORDERED: ONDANSETRON 4 MG TAB PO STA (03:17)
[2021-11-14] MEDS ORDERED: LORazepam 1 MG TAB PO STA (03:17)
[2021-11-14 03:22] VITALS: TEMP 98.7
--- NOTE | 2021-11-14 03:28 | ED ---
Chest Pain HPI - General Chief Complaint: Chest Pain Stated Complaint: Chest Pain Time Seen by Provider: 11/14/21 03:17 Source: patient, EMS, RN notes reviewed, old records reviewed Mode of arrival: EMS Limitations: no limitations - History of Present Illness Initial Comments: Physical 55-year-old male DF for evaluation. Patient's well-known to emergency department for evaluation of recurrent chest pain. Patient does admit that he thinks is mostly all related to anxiety. A she has no significant medical history otherwise, no high blood pressure or cholesterol no diabetes nonsmoker no other complaints MD Complaint: chest pain, other (Anxiety with history of similar) -: minutes(s) Onset: during exertion Pain Location: substernal Pain Radiation: LUE Severity: mild Severity scale (1-10): 1 Quality: tightness Consistency: constant Improves With: nothing Worsens With: nothing Anginal Symptoms: dyspnea Other Symptoms: palpitations Treatments Prior to Arrival: none - Related Data Home Medications Medication Instructions Recorded Confirmed Ibuprofen [Motrin Ib] 800 mg PO Q8H PRN 11/15/20 06/21/21 Aspirin EC [Ecotrin] 325 mg PO Q8H PRN 06/21/21 06/21/21 traMADol HCL 50 mg PO QID PRN 06/21/21 06/21/21 Allergies Allergy/AdvReac Type Severity Reaction Status Date / Time buspirone [From BuSpar] AdvReac Anaphylaxis Verified 10/05/21 00:08 diphenhydramine HCl AdvReac Rapid Verified 10/05/21 00:08 [From Benadryl] Heart Rate Review of Systems ROS Statement: Those systems with pertinent positive or pertinent negative responses have been documented in the HPI. ROS Other: All systems not noted in ROS Statement are negative. EKG Findings - EKG Comments: EKG Findings:: EKG sinus 75 W[place] 126 QRS 96 QTc 422 Past Medical History Past Medical History: Osteoarthritis (OA), Seizure Disorder Additional Past Medical History / Comment(s): epilepsy, chronic back/neck pain, hepatitis C,A and Hep B History of Any Multi-Drug Resistant Organisms: None Reported Past Surgical History: Hernia Repair Additional Past Surgical History / Comment(s): R inguinal hernia repair, L arm benign tumor excision. Past Anesthesia/Blood Transfusion Reactions: No Reported Reaction Past Psychological History: Anxiety, Depression Smoking Status: Current some day smoker Past Alcohol Use History: Occasional Past Drug Use History: Marijuana - Past Family History Father Family Medical History: Cancer Additional Family Medical History / Comment(s): lung/liver cancer. He is . Mother Family Medical History: Cancer Additional Family Medical History / Comment(s): Mother of lung cancer. She was a smoker. General Exam General appearance: alert, in no apparent distress, anxious Head exam: Present: atraumatic, normocephalic, normal inspection Eye exam: Present: normal appearance, PERRL, EOMI. Absent: scleral icterus, conjunctival injection, periorbital swelling ENT exam: Present: normal exam, mucous membranes moist Neck exam: Present: normal inspection. Absent: tenderness, meningismus, lymphadenopathy Respiratory exam: Present: normal lung sounds bilaterally. Absent: respiratory distress, wheezes, rales, rhonchi, stridor Cardiovascular Exam: Present: regular rate, normal rhythm, normal heart sounds. Absent: systolic murmur, diastolic murmur, rubs, gallop, clicks GI/Abdominal exam: Present: soft, normal bowel sounds. Absent: distended, tenderness, guarding, rebound, rigid Extremities exam: Present: normal inspection, full ROM, normal capillary refill. Absent: tenderness, pedal edema, joint swelling, calf tenderness Back exam: Present: normal inspection Neurological exam: Present: alert, oriented X3, CN II-XII intact Psychiatric exam: Present: normal affect, normal mood Skin exam: Present: warm, dry, intact, normal color. Absent: rash Course Vital Signs 11/14/21 11/14/21 11/14/21 03:19 03:31 04:45 Temperature 98.7 F Pulse Rate 76 72 72 Respiratory 18 16 18 Rate Blood Pressure 146/90 151/95 156/99 O2 Sat by Pulse 96 98 100 Oximetry - Reevaluation(s) Reevaluation #1: 11/14/21 medical record is reviewed Reevaluation #2: 11/14/21 patient states he feels well here in the ER Reevaluation #3: 11/14/21 Patient informed of results and questions answered, does feel good for discharge Chest Pain MDM - MDM 55 male well-known to our facility for chest pain and anxiety. Patient coming in for similar today, feels well upon arrival. After monitoring. He feels good for discharge home Disposition Clinical Impression: Atypical chest pain, Chest pain, Panic attack Disposition: HOME SELF-CARE Condition: Good Instructions (If sedation given, give patient instructions): Chest Pain (ED) Is patient prescribed a controlled substance at d/c from ED?: No Referrals: None,Stated [Primary Care Provider] - 1-2 days Time of Disposition: 04:30
[2021-11-14 03:31] VITALS: PULSE 72
[2021-11-14] MEDS ORDERED: MORPHINE SULFATE 4 MG/ML SYRINGE IVP STA (03:45)
[2021-11-14 04:46] VITALS: BP 156/99; RESP 18
--- NOTE | 2021-11-14 05:49 | XR ---
EXAM: XR Chest, 1 View CLINICAL HISTORY: ITS.REASON XR Reason: cp TECHNIQUE: Frontal view of the chest. COMPARISON: 04/12/2021 FINDINGS: Lungs: Unremarkable. No consolidation. Pleural space: Unremarkable. No pneumothorax. Heart: Unremarkable. No cardiomegaly. Mediastinum: Unremarkable. Bones/joints: Unremarkable. IMPRESSION: Normal chest x-ray.
== END 2021-11-14 04:46 | disposition home or self-care (01) ==
LOC: EC 03:14
DX: F41.0 Panic disorder [episodic paroxysmal anxiety] (principal); R07.89 Other chest pain; F17.200 Nicotine dependence, unspecified, uncomplicated; Z79.82 Long term (current) use of aspirin; Z88.8 Allergy status to other drugs, medicaments and biological substances; M19.90 Unspecified osteoarthritis, unspecified site
CPT/HCPCS: 93005; 71045; 99285; 96374; J2270

== ENCOUNTER 2022-01-09 19:52 | Emergency (ER) | payer MEDICARE, OTHER ==
[2022-01-09 20:37] LABS: Glucose,Whole Blood 92 mg/dL (70-110)
[2022-01-09 20:41] VITALS: BP 164/93; PULSE 103; RESP 20
[2022-01-09] MEDS ORDERED: IBUPROFEN 600 MG TAB PO STA (22:15)
[2022-01-09] MEDS ORDERED: ACETAMINOPHEN TAB 325 MG TAB PO STA (22:15)
--- NOTE | 2022-01-09 23:40 | XR ---
EXAMINATION TYPE: XR chest 2V DATE OF EXAM: 01/09/2022 COMPARISON: 11/14/2021 HISTORY: Fever TECHNIQUE: 2 view FINDINGS: There is some interstitial pulmonary edema. Heart is nonenlarged. There are no hilar masses . Mediastinum is normal. No pleural effusion. There is some airspace infiltrate at both lung bases. IMPRESSION: There is some pulmonary interstitial edema and lower lobe airspace pneumonia which is new compared to old exam. No obvious heart failure.
--- NOTE | 2022-01-09 23:41 | XR ---
EXAMINATION TYPE: XR KUB DATE OF EXAM: 01/09/2022 COMPARISON: NONE HISTORY: Fever TECHNIQUE: 2 views upright FINDINGS: There is no sign of intestinal obstruction or pneumoperitoneum. Fecal pattern is normal. No pathologic calcifications over the kidneys. No evidence of abdominal mass. IMPRESSION: Nonacute abdomen.
--- NOTE | 2022-01-10 00:19 | ED ---
Fever HPI - General Chief Complaint: Fever Stated Complaint: Nausea Time Seen by Provider: 01/09/22 22:15 Source: patient Mode of arrival: ambulatory Limitations: no limitations - History of Present Illness Initial Comments: Patient is a 56-year-old male well known to our ER presenting with chief complaint of fever. Patient also admits to congestion, nausea, cough, loss of taste and smell, and headache. Patient admits to some chest discomfort, states is likely related to anxiety as he gets this frequently. Denies shortness of breath, abdominal pain, sore throat, ear pain, sinus pain, vision or hearing changes, neck pain, palpitations, weakness. - Related Data Home Medications Medication Instructions Recorded Confirmed Ibuprofen [Motrin Ib] 800 mg PO Q8H PRN 11/15/20 06/21/21 Aspirin EC [Ecotrin] 325 mg PO Q8H PRN 06/21/21 06/21/21 traMADol HCL 50 mg PO QID PRN 06/21/21 06/21/21 Previous Rx's Medication Instructions Recorded Azithromycin [Zithromax Z Pack] 1 tab PO DIRECTED #6 tab 01/10/22 Allergies Allergy/AdvReac Type Severity Reaction Status Date / Time buspirone [From BuSpar] AdvReac Anaphylaxis Verified 01/09/22 20:41 diphenhydramine HCl AdvReac Rapid Verified 01/09/22 20:41 [From Benadryl] Heart Rate Review of Systems ROS Statement: Those systems with pertinent positive or pertinent negative responses have been documented in the HPI. ROS Other: All systems not noted in ROS Statement are negative. Past Medical History Past Medical History: Osteoarthritis (OA), Seizure Disorder Additional Past Medical History / Comment(s): epilepsy, chronic back/neck pain, hepatitis C,A and Hep B History of Any Multi-Drug Resistant Organisms: None Reported Past Surgical History: Hernia Repair Additional Past Surgical History / Comment(s): R inguinal hernia repair, L arm benign tumor excision. Past Anesthesia/Blood Transfusion Reactions: No Reported Reaction Past Psychological History: Anxiety, Depression Smoking Status: Current some day smoker Past Alcohol Use History: Occasional Past Drug Use History: Marijuana - Past Family History Father Family Medical History: Cancer Additional Family Medical History / Comment(s): lung/liver cancer. He is . Mother Family Medical History: Cancer Additional Family Medical History / Comment(s): Mother of lung cancer. She was a smoker. General Exam Limitations: no limitations General appearance: alert, anxious Head exam: Present: atraumatic, normocephalic, normal inspection Eye exam: Present: normal appearance, EOMI. Absent: scleral icterus, periorbital swelling Neck exam: Present: normal inspection Respiratory exam: Present: normal lung sounds bilaterally. Absent: respiratory distress, wheezes, rales, rhonchi, stridor Cardiovascular Exam: Present: regular rate, normal rhythm, normal heart sounds. Absent: systolic murmur, diastolic murmur, rubs, gallop, clicks Neurological exam: Present: alert, oriented X3, CN II-XII intact Psychiatric exam: Present: anxious Skin exam: Present: warm, dry, intact, normal color. Absent: rash Course Vital Signs 01/09/22 01/10/22 20:39 01:04 Temperature 102.8 F H 98.3 F Pulse Rate 103 H Respiratory 20 Rate Blood Pressure 164/93 O2 Sat by Pulse 95 Oximetry Medical Decision Making - Medical Decision Making Patient is a 56-year-old male presenting with chief complaint of fever. Also admits to cough, congestion, headache, fatigue, nausea. On examination heart and lungs are clear to auscultation. Chest x-ray is positive for pneumonia. Patient is negative for Covid. Patient will be treated with Zithromax Z-Richard. Alternate Motrin and Tylenol as needed for fever and pain control. Follow-up with PCP. Report back to ER with any new or worsening symptoms. Discussed return parameters and answered all questions. Patient conveyed verbal understanding and agreed to the plan. I discussed this case in detail with my attending Dr. Leonard - Lab Data Lab Results 01/09/22 01/09/22 Range/Units 20:35 20:42 POC Glucose (mg/dL) 92 (70-110) mg/dL POC Glu [employer] ID Johanny Zhou Coronavirus (PCR) Not Detected (Not Detectd) Disposition Clinical Impression: Pneumonia Disposition: HOME SELF-CARE Condition: Good Instructions (If sedation given, give patient instructions): Community Acquired Pneumonia (ED) Additional Instructions: Follow-up with PCP. Report back to ER with any new or worsening symptoms. Take medication as prescribed. Alternate Motrin and Tylenol at home as needed for fever and pain control. Prescriptions: Azithromycin [Zithromax Z Pack] 1 tab PO DIRECTED #6 tab Is patient prescribed a controlled substance at d/c from ED?: No Referrals: None,Stated [Primary Care Provider] - 1-2 days Time of Disposition: 00:19
[2022-01-10 01:05] VITALS: TEMP 98.3
== END 2022-01-10 01:05 | disposition home or self-care (01) ==
LOC: EC 19:52
DX: J18.9 Pneumonia, unspecified organism (principal); M19.90 Unspecified osteoarthritis, unspecified site; F41.9 Anxiety disorder, unspecified; F32.A Depression, unspecified; F17.200 Nicotine dependence, unspecified, uncomplicated; F12.90 Cannabis use, unspecified, uncomplicated; Z88.1 Allergy status to other antibiotic agents; Z88.8 Allergy status to other drugs, medicaments and biological substances; Z79.82 Long term (current) use of aspirin; Z79.899 Other long term (current) drug therapy; Z20.822 Contact with and (suspected) exposure to COVID-19
CPT/HCPCS: 36415; 71046; 74018; 87635; 99285

== ENCOUNTER → 2022-01-20 | Outpatient (CLI) | payer MEDICARE, OTHER ==
[2022-01-20 18:26] LABS: Basophils # (A) 0.07 X 10*3/uL (0.00-0.10); Eosinophils # (A) 0.21 X 10*3/uL (0.04-0.35); HCT 39.1 % (39.6-50.0); HGB 12.7 g/dL (13.0-17.0); Immature Grans, Automated 1.1 %; Lymphocytes # (A) 2.25 X 10*3/uL (0.90-5.00); Lymphocytes % (A) 32.3 %; MCH 30.9 pg (27.0-32.0); MCHC 32.5 g/dL (32.0-37.0); MCV 95.1 fL (80.0-97.0); Monocytes # (A) 0.53 X 10*3/uL (0.20-1.00); Monocytes % (A) 7.6 %; NRBC Per 100 WBC 0 /100 WBCS (0.0-0.0); Neutrophils # (A) 3.83 X 10*3/uL (1.80-7.70); Platelet Count 573 X 10*3/uL (140-440); RBC 4.11 X 10*6/uL (4.40-5.60); RDW 13.2 % (11.5-14.5); WBC 6.97 X 10*3/uL (4.50-10.00)
[2022-01-20 19:17] LABS: ALT 50 U/L (10-49); AST 38 U/L (14-35); African American GFR (CKD) 114.9 (60.0-200.0); Albumin 3.5 g/dL (3.8-4.9); Albumin/Globulin Ratio 0.92 (1.60-3.17); Alkaline Phosphatase 76 U/L (41-126); BUN/Creat Ratio 23.75 Ratio (12.00-20.00); Calcium 9.1 mg/dL (8.7-10.3); Carbon Dioxide 23.6 mmol/L (20.0-27.5); Chloride 105 mmol/L (96-109); Globulin 3.8 g/dL (1.6-3.3); Glucose 79 mg/dL (70-110); Non-African American GFR(CKD) 99.2 (60.0-200.0); Potassium 5.1 mmol/L (3.5-5.5); Sodium 138 mmol/L (135-145); Total Bilirubin <0.15 mg/dL (0.30-1.20); Total Protein 7.3 g/dL (6.2-8.2)
[2022-01-20 19:27] LABS: Hepatitis B Surface AB- Quant 3.5 mIU/mL; Hepatitis B Surface Antibody Nonreactive (Nonreactive)
[2022-01-20 19:55] LABS: Hepatitis B Surface Antigen Nonreactive (Nonreactive)
== END | disposition home or self-care (01) ==
LOC: LABWHC1 12:28
PROVIDERS: ATTEND Internal Medicine Gastroenterology
DX: B18.2 Chronic viral hepatitis C (principal); B19.10 Unspecified viral hepatitis B without hepatic coma
CPT/HCPCS: 36415; 80053; 82105; 85025; 86706; 87340; 87517; 87522

== ENCOUNTER 2022-03-16 14:02 | Emergency (ER) | payer MEDICARE, OTHER ==
[2022-03-16] MEDS ORDERED: MORPHINE SULFATE 4 MG/ML SYRINGE IV STA (16:04)
[2022-03-16] MEDS ORDERED: ONDANSETRON 4 MG/2 ML VIAL IVP STA (16:04)
[2022-03-16] MEDS ORDERED: SODIUM CHLORIDE 0.9% 1,000 ML IV STA (16:04)
[2022-03-16] MEDS ORDERED: ASPIRIN 81 MG PO STA (16:04)
--- NOTE | 2022-03-16 16:22 | ED ---
General Adult HPI - General Chief complaint: Chest Pain Stated complaint: Chest pain Time Seen by Provider: 03/16/22 15:44 Source: patient, RN notes reviewed, old records reviewed Mode of arrival: ambulatory Limitations: no limitations - History of Present Illness Initial comments: Patient is a 56-year-old male with past medical history remarkable for recurrent chest pain is in the department he presents emergency Department with his typical chest pain. Does have a history of anxiety with it. No known history of heart attacks. Does state that this pain is somewhat different as he is getting bilateral shoulder pain as well as, however he states he did fall on both shoulders recently and that could be contributing. Also had an episode of nausea and nonbilious, emesis. Denies any shortness of breath. Denies any cough or fevers or chills. Denies any diarrhea. Denies any abdominal pain. He is resting comfortably in bed at this time. States he was reading a magazine when it suddenly occurred approximately 3 hours prior to arrival. That was about 11 AM. Is currently approximately 4 PM when I evaluated the patient. States he still has some of the pain at this time but is somewhat improved. No other acute complaints at this time. Describes it as a pressure sensation. Somewhat typical for his anxiety per patient. Is requesting morphine. - Related Data Home Medications Medication Instructions Recorded Confirmed Ibuprofen [Motrin Ib] 800 mg PO Q8H PRN 11/15/20 06/21/21 Aspirin EC [Ecotrin] 325 mg PO Q8H PRN 06/21/21 06/21/21 traMADol HCL 50 mg PO QID PRN 06/21/21 06/21/21 Previous Rx's Medication Instructions Recorded Azithromycin [Zithromax Z Pack] 1 tab PO DIRECTED #6 tab 01/10/22 Allergies Allergy/AdvReac Type Severity Reaction Status Date / Time buspirone [From BuSpar] AdvReac Anaphylaxis Verified 03/16/22 14:11 diphenhydramine HCl AdvReac Rapid Verified 03/16/22 14:11 [From Benadryl] Heart Rate muscle relaxers AdvReac Unknown Uncoded 03/08/22 14:27 Review of Systems ROS Statement: Those systems with pertinent positive or pertinent negative responses have been documented in the HPI. Review of Systems: CONST: Denies fever EYES: Denies blurry vision ENT: Denies nasal congestion C/V: Endorses chest pain RESP: Denies shortness of breath GI: Denies abdominal pain : Denies dysuria SKIN: Denies rash. MSK: Denies joint pain. NEURO: Denies headache ROS Other: All systems not noted in ROS Statement are negative. Past Medical History Past Medical History: Osteoarthritis (OA), Pneumonia, Seizure Disorder Additional Past Medical History / Comment(s): epilepsy, chronic back/neck pain, hepatitis C,A and Hep B History of Any Multi-Drug Resistant Organisms: None Reported Past Surgical History: Hernia Repair Additional Past Surgical History / Comment(s): R inguinal hernia repair, L arm benign tumor excision. Past Anesthesia/Blood Transfusion Reactions: No Reported Reaction Past Psychological History: Anxiety, Depression Smoking Status: Current some day smoker Past Alcohol Use History: None Reported Past Drug Use History: Marijuana - Past Family History Father Family Medical History: Cancer Additional Family Medical History / Comment(s): lung/liver cancer. He is . Mother Family Medical History: Cancer Additional Family Medical History / Comment(s): Mother of lung cancer. She was a smoker. General Exam - General Exam Comments Initial Comments: General: Appears in no acute distress. HEAD: Normal with no signs of head trauma. EYES: PERRLA, EOMI, conjunctiva normal, no discharge. ENT: Hearing grossly intact, normal oropharynx. RESPIRATORY: Clear breath sounds bilaterally. No wheezes, rales, or rhonchi. C/V: Regular rate and rhythm. S1 and S2 auscultated, no edema, peripheral puls es 2+ and intact throughout ABD: Abd is soft, nontender, nondistended EXT: Normal range of motion, no obvious deformity SKIN: No rashes or lesions observed on exposed skin. NEURO: Alert and oriented x 4. Cranial nerves II-XII intact. No focal sensory or strength deficits. 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 He was in agreement with this plan. He will be given a dose morphine and aspirin as well as obtain an EKG, chest x-ray and blood work. Vital signs within acceptable limits. He is resting comfortably at this time. Patient was in agreement this plan. EKG showed no signs of acute ischemia. Chronic changes seen.Patient's chest x- ray as interpreted by myself reveals no acute cardiopulmonary process. Laboratory studies reveal an detectable troponin. Remainder of the workup is unremarkable. When I went to reevaluate the patient, he had eloped. Patient left without completing treatment. - Lab Data Result diagrams: 03/16/22 16:38 03/16/22 16:38 Lab Results 03/16/22 03/16/22 03/16/22 Range/Units 16:38 16:38 16:38 WBC 6.9 (3.8-10.6) k/uL RBC 4.27 L (4.30-5.90) m/uL Hgb 14.1 (13.0-17.5) gm/dL Hct 39.3 (39.0-53.0) % MCV 92.0 (80.0-100.0) fL MCH 32.9 (25.0-35.0) pg MCHC 35.8 (31.0-37.0) g/dL RDW 13.7 (11.5-15.5) % Plt Count 230 (150-450) k/uL MPV 8.7 Neutrophils % 57 % Lymphocytes % 30 % Monocytes % 5 % Eosinophils % 3 % Basophils % 0 % Neutrophils # 4.0 (1.3-7.7) k/uL Lymphocytes # 2.1 (1.0-4.8) k/uL Monocytes # 0.4 (0-1.0) k/uL Eosinophils # 0.2 (0-0.7) k/uL Basophils # 0.0 (0-0.2) k/uL PT 10.6 (9.0-12.0) sec INR 1.0 (<1.2) APTT 24.3 (22.0-30.0) sec Sodium 138 (137-145) mmol/L Potassium 4.2 (3.5-5.1) mmol/L Chloride 107 (98-107) mmol/L Carbon Dioxide 26 (22-30) mmol/L Anion Gap 5 mmol/L BUN 15 (9-20) mg/dL Creatinine 0.75 (0.66-1.25) mg/dL Est GFR (CKD-EPI)AfAm >90 (>60 ml/min/1.73 sqM) Est GFR (CKD-EPI)NonAf >90 (>60 ml/min/1.73 sqM) Glucose 85 (74-99) mg/dL Calcium 9.3 (8.4-10.2) mg/dL Magnesium 1.9 (1.6-2.3) mg/dL Total Bilirubin 0.1 L (0.2-1.3) mg/dL AST 23 (17-59) U/L ALT 18 (4-49) U/L Alkaline Phosphatase 68 (38-126) U/L Troponin I (0.000-0.034) ng/mL Total Protein 7.1 (6.3-8.2) g/dL Albumin 4.2 (3.5-5.0) g/dL Amylase 57 (30-110) U/L Lipase 134 (23-300) U/L 03/16/22 Range/Units 16:38 WBC (3.8-10.6) k/uL RBC (4.30-5.90) m/uL Hgb (13.0-17.5) gm/dL Hct (39.0-53.0) % MCV (80.0-100.0) fL MCH (25.0-35.0) pg MCHC (31.0-37.0) g/dL RDW (11.5-15.5) % Plt Count (150-450) k/uL MPV Neutrophils % % Lymphocytes % % Monocytes % % Eosinophils % % Basophils % % Neutrophils # (1.3-7.7) k/uL Lymphocytes # (1.0-4.8) k/uL Monocytes # (0-1.0) k/uL Eosinophils # (0-0.7) k/uL Basophils # (0-0.2) k/uL PT (9.0-12.0) sec INR (<1.2) APTT (22.0-30.0) sec Sodium (137-145) mmol/L Potassium (3.5-5.1) mmol/L Chloride (98-107) mmol/L Carbon Dioxide (22-30) mmol/L Anion Gap mmol/L BUN (9-20) mg/dL Creatinine (0.66-1.25) mg/dL Est GFR (CKD-EPI)AfAm (>60 ml/min/1.73 sqM) Est GFR (CKD-EPI)NonAf (>60 ml/min/1.73 sqM) Glucose (74-99) mg/dL Calcium (8.4-10.2) mg/dL Magnesium (1.6-2.3) mg/dL Total Bilirubin (0.2-1.3) mg/dL AST (17-59) U/L ALT (4-49) U/L Alkaline Phosphatase (38-126) U/L Troponin I <0.012 (0.000-0.034) ng/mL Total Protein (6.3-8.2) g/dL Albumin (3.5-5.0) g/dL Amylase (30-110) U/L Lipase (23-300) U/L - EKG Data -: EKG Interpreted by Me EKG Comments: 12-lead Electrocardiogram Interpretation Note EKG was reviewed and interpreted by myself. 12-lead ECG performed at 1416 is in terpreted by me as revealing normal sinus rhythm at a rate of 68 beats per minute. Trumann is normal. ID interval is 115 ms, QRS duration is 93 ms, QTc is 408 ms. There is chronic troponin elevation in lead V3 which is seen on prior EKGs including ones from September and October 2021.. There were no acute ST or T wave abnormalities to suggest myocardial ischemia or injury. R wave progression across the precordium was satisfactory. By my interpretation this EKG is non- diagnostic for acute ischemia. No change when compared to prior EKGs from September and October 2021. Disposition Clinical Impression: Eloped from emergency department, Chest pain Disposition: Left Against Medical Advice Condition: Undetermined Referrals: None,Stated [Primary Care Provider] - 1-2 days Time of Disposition: 17:55
--- NOTE | 2022-03-16 16:26 | XR ---
EXAMINATION TYPE: XR chest 2V DATE OF EXAM: 03/16/2022 4:15 PM COMPARISON: Chest radiographs from 01/09/2022 TECHNIQUE: XR chest 2V Frontal and lateral views of the chest. CLINICAL INDICATION:Male, 56 years old with history of Chest Pain; FINDINGS: Lungs/Pleura: There is no evidence of pleural effusion, focal consolidation, or pneumothorax. Pulmonary vascularity: Unremarkable. Heart/mediastinum: Cardiomediastinal silhouette is unremarkable. Musculoskeletal: No acute osseous pathology. IMPRESSION: No acute cardiopulmonary disease/process.
[2022-03-16 17:02] LABS: Basophils % (A) 0 %; Eosinophils # (A) 0.2 k/uL (0-0.7); Eosinophils % (A) 3 %; HCT 39.3 % (39.0-53.0); HGB 14.1 gm/dL (13.0-17.5); Lymphocytes # (A) 2.1 k/uL (1.0-4.8); Lymphocytes % (A) 30 %; MCH 32.9 pg (25.0-35.0); MCHC 35.8 g/dL (31.0-37.0); Mean Platelet Volume 8.7; Monocytes # (A) 0.4 k/uL (0-1.0); Monocytes % (A) 5 %; Neutrophils % (A) 57 %; Platelet Count 230 k/uL (150-450); RBC 4.27 m/uL (4.30-5.90); RDW 13.7 % (11.5-15.5); WBC 6.9 k/uL (3.8-10.6)
[2022-03-16 17:05] VITALS: BP 187/105; RESP 20; TEMP 97.8
[2022-03-16 17:10] VITALS: PULSE 84
[2022-03-16 17:11] LABS: Partial Thromboplastin Time 24.3 sec (22.0-30.0); Prothrombin Time 10.6 sec (9.0-12.0)
[2022-03-16 17:18] LABS: ALT 18 U/L (4-49); AST 23 U/L (17-59); African American GFR (CKD) >90 (>60 ml/min/1.73 sqM); Albumin 4.2 g/dL (3.5-5.0); Alkaline Phosphatase 68 U/L (38-126); Amylase 57 U/L (30-110); Anion Gap 5 mmol/L; Blood Urea Nitrogen 15 mg/dL (9-20); Calcium 9.3 mg/dL (8.4-10.2); Carbon Dioxide 26 mmol/L (22-30); Chloride 107 mmol/L (98-107); Glucose 85 mg/dL (74-99); Lipase 134 U/L (23-300); Magnesium 1.9 mg/dL (1.6-2.3); Non-African American GFR(CKD) >90 (>60 ml/min/1.73 sqM); Potassium 4.2 mmol/L (3.5-5.1); Sodium 138 mmol/L (137-145); Total Bilirubin 0.1 mg/dL (0.2-1.3); Total Protein 7.1 g/dL (6.3-8.2)
== END 2022-03-16 18:45 | disposition left against medical advice (07) ==
LOC: EC 14:02
DX: R07.9 Chest pain, unspecified (principal); F17.200 Nicotine dependence, unspecified, uncomplicated; F41.9 Anxiety disorder, unspecified; M19.90 Unspecified osteoarthritis, unspecified site; Z88.8 Allergy status to other drugs, medicaments and biological substances; Z88.3 Allergy status to other anti-infective agents
CPT/HCPCS: 36415; 80053; 82150; 83690; 83735; 84484; 85025; 85610; 85730; 71046; 99285; 96374; 96375; 96361; J2270; J2405

== ENCOUNTER 2022-04-30 05:10 | Emergency (ER) | payer MEDICARE, OTHER ==
[2022-04-30 05:23] VITALS: BP 179/108; PULSE 87; RESP 16; TEMP 97.8
[2022-04-30] MEDS ORDERED: IBUPROFEN 600 MG TAB PO STA (05:46)
[2022-04-30] MEDS ORDERED: LORazepam 1 MG TAB PO STA (05:46)
--- NOTE | 2022-04-30 05:49 | ED ---
Upper Extremity HPI - General Chief Complaint: Extremity Injury, Upper Stated Complaint: LT shoulder injury Time Seen by Provider: 04/30/22 05:13 Source: patient, RN notes reviewed, old records reviewed Mode of arrival: ambulatory Limitations: no limitations - History of Present Illness Initial Comments: This is a 56-year-old male status post trip and fall trauma fall resulting in left shoulder pain patient landed on his left shoulder arm was tucked that side. No other injury noted no other complaints MD Complaint: Injury to:: left, shoulder -: hour(s) Other Extremity Injury: Shoulder: Left Other Injuries: none Handedness: left Place: home Severity scale (1-10): 3 Improves With: none Worsens With: none Context: fall Associated Symptoms: denies other symptoms Treatments Prior to Arrival: cold therapy - Related Data Home Medications Medication Instructions Recorded Confirmed Ibuprofen [Motrin Ib] 800 mg PO Q8H PRN 11/15/20 06/21/21 Aspirin EC [Ecotrin] 325 mg PO Q8H PRN 06/21/21 06/21/21 traMADol HCL 50 mg PO QID PRN 06/21/21 06/21/21 Previous Rx's Medication Instructions Recorded Azithromycin [Zithromax Z Pack] 1 tab PO DIRECTED #6 tab 01/10/22 Allergies Allergy/AdvReac Type Severity Reaction Status Date / Time buspirone [From BuSpar] AdvReac Anaphylaxis Verified 04/30/22 05:23 diphenhydramine HCl AdvReac Rapid Verified 04/30/22 05:23 [From Benadryl] Heart Rate muscle relaxers AdvReac Unknown Uncoded 04/30/22 05:23 Review of Systems ROS Statement: Those systems with pertinent positive or pertinent negative responses have been documented in the HPI. ROS Other: All systems not noted in ROS Statement are negative. Past Medical History Past Medical History: Osteoarthritis (OA), Pneumonia, Seizure Disorder Additional Past Medical History / Comment(s): epilepsy, chronic back/neck pain, hepatitis C,A and Hep B History of Any Multi-Drug Resistant Organisms: None Reported Past Surgical History: Hernia Repair Additional Past Surgical History / Comment(s): R inguinal hernia repair, L arm benign tumor excision. Past Anesthesia/Blood Transfusion Reactions: No Reported Reaction Past Psychological History: Anxiety, Depression Smoking Status: Current every day smoker Past Alcohol Use History: None Reported Past Drug Use History: Marijuana - Past Family History Father Family Medical History: Cancer Additional Family Medical History / Comment(s): lung/liver cancer. He is . Mother Family Medical History: Cancer Additional Family Medical History / Comment(s): Mother of lung cancer. She was a smoker. General Exam Limitations: no limitations General appearance: alert, in no apparent distress Head exam: Present: atraumatic, normocephalic, normal inspection Eye exam: Present: normal appearance, PERRL, EOMI. Absent: scleral icterus, conjunctival injection, periorbital swelling ENT exam: Present: normal exam, mucous membranes moist Neck exam: Present: normal inspection. Absent: tenderness, meningismus, lymphadenopathy Respiratory exam: Present: normal lung sounds bilaterally. Absent: respiratory distress, wheezes, rales, rhonchi, stridor Cardiovascular Exam: Present: regular rate, normal rhythm, normal heart sounds, other (Left shoulder tenderness). Absent: systolic murmur, diastolic murmur, rubs, gallop, clicks GI/Abdominal exam: Present: soft, normal bowel sounds. Absent: distended, tenderness, guarding, rebound, rigid Extremities exam: Present: normal inspection, full ROM, normal capillary refill. Absent: tenderness, pedal edema, joint swelling, calf tenderness Back exam: Present: normal inspection Neurological exam: Present: alert, oriented X3, CN II-XII intact Psychiatric exam: Present: normal affect, normal mood Skin exam: Present: warm, dry, intact, normal color. Absent: rash Course Vital Signs 04/30/22 05:21 Temperature 97.8 F Pulse Rate 87 Respiratory 16 Rate Blood Pressure 179/108 O2 Sat by Pulse 99 Oximetry - Reevaluation(s) Reevaluation #1: Medical records reviewed Patient symptoms improved here in the ER Patient informed results questions answered Medical Decision Making - Medical Decision Making 56 male status post trip and fall left shoulder pain left shoulder injury contusion, x-rays negative patient can be discharged home - Radiology Data Radiology results: report reviewed (X-ray left shoulder negative for acute disease), image reviewed Disposition Clinical Impression: Contusion of left shoulder, Fall Disposition: HOME SELF-CARE Condition: Good Instructions (If sedation given, give patient instructions): Contusion in Adults (ED) Is patient prescribed a controlled substance at d/c from ED?: No Referrals: None,Stated [Primary Care Provider] - 1-2 days Time of Disposition: 06:20
--- NOTE | 2022-04-30 06:12 | XR ---
EXAMINATION TYPE: XR shoulder complete LT DATE OF EXAM: 04/30/2022 COMPARISON: NONE HISTORY: Pain TECHNIQUE: 3 views FINDINGS: There is no evidence of fracture nor dislocation. Joint spaces are normal. No pathologic ca lcification. IMPRESSION: No acute abnormality of the left shoulder. No fracture.
== END 2022-04-30 06:19 | disposition home or self-care (01) ==
LOC: EC 05:10
DX: S40.012A Contusion of left shoulder, initial encounter (principal); M19.90 Unspecified osteoarthritis, unspecified site; F41.9 Anxiety disorder, unspecified; F32.A Depression, unspecified; F17.200 Nicotine dependence, unspecified, uncomplicated; F12.90 Cannabis use, unspecified, uncomplicated; Z79.1 Long term (current) use of non-steroidal anti-inflammatories (NSAID); Z88.1 Allergy status to other antibiotic agents; Z88.8 Allergy status to other drugs, medicaments and biological substances; W18.30XA Fall on same level, unspecified, initial encounter; Y92.009 Unspecified place in unspecified non-institutional (private) residence as the place of occurrence of the external cause
CPT/HCPCS: 99283

== ENCOUNTER 2022-08-22 18:42 | Emergency (ER) | payer MEDICARE, OTHER ==
--- NOTE | 2022-08-22 18:44 | ED ---
General Adult HPI <Elif Lawson - Last Filed: 08/22/22 18:44> <Lien Alonzo - Last Filed: 08/22/22 21:33> - General Stated complaint: abdominal pain Time Seen by Provider: 08/22/22 18:44 - History of Present Illness Initial comments: 56-year-old male presents to the emergency department with a chief complaint of right-sided abdominal pain that started 3 days ago. He describes the pain as sharp. Reports attempting symptoms of nausea. (Elif Lawson) Patient is a 56-year-old male presents to the emergency department for abdominal pain. Patient reports a sharp pain in his right upper abdomen with radiation to middle upper abdomen and to the back for the past 3 days. Patient has nausea he denies any vomiting. No fever or chills. No diarrhea, constipation, blood in the urine, burning with urination. He denies chest pain and shortness of breath. (Lien Alonzo) - Related Data Home Medications Medication Instructions Recorded Confirmed Ibuprofen [Motrin Ib] 800 mg PO Q8H PRN 11/15/20 06/21/21 Aspirin EC [Ecotrin] 325 mg PO Q8H PRN 06/21/21 06/21/21 traMADol HCL 50 mg PO QID PRN 06/21/21 06/21/21 Previous Rx's Medication Instructions Recorded Azithromycin [Zithromax Z Pack] 1 tab PO DIRECTED #6 tab 01/10/22 Allergies Allergy/AdvReac Type Severity Reaction Status Date / Time buspirone [From BuSpar] AdvReac Anaphylaxis Verified 08/22/22 19:03 diphenhydramine HCl AdvReac Rapid Verified 08/22/22 19:03 [From Benadryl] Heart Rate muscle relaxers AdvReac Unknown Uncoded 08/22/22 19:03 Review of Systems ROS Other: All systems not noted in ROS Statement are negative. <Elif Lawson - Last Filed: 08/22/22 18:44> ROS Other: All systems not noted in ROS Statement are negative. <Lien Alonzo - Last Filed: 08/22/22 21:33> ROS Statement: Those systems with pertinent positive or pertinent negative responses have been documented in the HPI. Past Medical History Past Medical History: Osteoarthritis (OA), Pneumonia, Seizure Disorder Additional Past Medical History / Comment(s): epilepsy, chronic back/neck pain, hepatitis C,A and Hep B History of Any Multi-Drug Resistant Organisms: None Reported Past Surgical History: Hernia Repair Additional Past Surgical History / Comment(s): R inguinal hernia repair, L arm benign tumor excision. Past Anesthesia/Blood Transfusion Reactions: No Reported Reaction Past Psychological History: Anxiety, Depression Smoking Status: Current every day smoker Past Alcohol Use History: None Reported Past Drug Use History: Marijuana - Past Family History Father Family Medical History: Cancer Additional Family Medical History / Comment(s): lung/liver cancer. He is . Mother Family Medical History: Cancer Additional Family Medical History / Comment(s): Mother of lung cancer. She was a smoker. <Elif Lawson - Last Filed: 08/22/22 18:44> General Exam <Elif Lawson - Last Filed: 08/22/22 18:44> General appearance: alert, in no apparent distress Head exam: Present: atraumatic, normocephalic, normal inspection Eye exam: Present: normal appearance, PERRL, EOMI. Absent: scleral icterus, conjunctival injection, periorbital swelling Respiratory exam: Present: normal lung sounds bilaterally. Absent: respiratory distress, wheezes, rales, rhonchi, stridor Cardiovascular Exam: Present: regular rate, normal rhythm, normal heart sounds. Absent: systolic murmur, diastolic murmur, rubs, gallop, clicks GI/Abdominal exam: Present: soft, normal bowel sounds. Absent: distended, tenderness, guarding, rebound, rigid Neurological exam: Present: alert, oriented X3, CN II-XII intact Psychiatric exam: Present: agitated Skin exam: Present: warm, dry, intact, normal color. Absent: rash <Lien Alonzo - Last Filed: 08/22/22 21:33> - General Exam Comments Initial Comments: Visual Physical Exam Vital signs reviewed General: Well-appearing, nontoxic, no acute distress. Head: Normocephalic, atraumatic Eyes: PERRLA, EOMI ENT: Airway patent Chest: Nonlabored breathing Skin: No visual rash, normal skin tone Neuro: Alert and oriented 3 Musculoskeletal: No gross abnormalities (Elif Lawson) Course Vital Signs 08/22/22 18:59 Temperature 98.0 F Pulse Rate 77 Respiratory 18 Rate Blood Pressure 179/93 O2 Sat by Pulse 98 Oximetry Medical Decision Making - Lab Data Result diagrams: 08/22/22 19:49 08/22/22 19:49 <Lien Alonzo - Last Filed: 08/22/22 21:33> - Medical Decision Making EKG taken at 19:05, interpreted by me Sinus rhythm, left atrial enlargement, borderline left axis deviation, new T- wave inversions in V3, V4, V6 Ventricular rate 62, WI interval 127, QRS duration 92, QTC 394 Was pt. sent in by a medical professional or institution (, PA, RECREATIONAL RESORT MANAGER, urgent care, hospital, or retirement...) When possible be specific @ -No Did you speak to anyone other than the patient for history (EMS, parent, family, police, friend...)? What history was obtained from this source @ -No Did you review nursing and triage notes (agree or disagree)? Why? @ -I reviewed and agree with nursing and triage notes Were old charts reviewed (outside hosp., previous admission, EMS record, old EKG, old radiological studies, urgent care reports/EKG's, retirement records)? Report findings @ -No old charts were reviewed Differential Diagnosis (chest pain, altered mental status, abdominal pain women, abdominal pain men, vaginal bleeding, weakness, fever, dyspnea, syncope, headache, dizziness, GI bleed, back pain, seizure, CVA, palpatations, mental health)? @ -Differential Abdominal Pain Men: Appendicitis, cholecystitis, diverticulosis, ischemic bowel, pancreatitis, hepatitis, UTI, gastroenteritis, AAA, incarcerated hernia, bowel obstruction, constipation, inflammatory bowel, hepatitis, peptic ulcer disease, splenic infarction, perforated viscus, testicular torsion, this is not meant to be an all-inclusive list EKG interpreted by me (3pts min.). @ -As above X-rays interpreted by me (1pt min.). @ -None done CT interpreted by me (1pt min.). @ -None done U/S interpreted by me (1pt. min.). @ -None done What testing was considered but not performed or refused? (CT, X-rays, U/S, labs)? Why? @ -None What meds were considered but not given or refused? Why? @ -None Did you discuss the management of the patient with other professionals (professionals i.e. , PA, RECREATIONAL RESORT MANAGER, lab, RT, psych nurse, social psychologist, data entry manager, teacher, hydrological technical officer, case management coordinator)? Give summary @ -No Was smoking cessation discussed for >3mins.? @ -No Was critical care preformed (if so, how long)? @ -No Were there social determinants of health that impacted care today? How? (Homelessness, low income, unemployed, alcoholism, drug addiction, transportation, low edu. Level, literacy, decrease access to med. care, [facility] [facility], rehab)? @ -No Was there de-escalation of care discussed even if they declined (Discuss DNR or withdrawal of care, Hospice)? DNR status @ -No What co-morbidities impacted this encounter? (DM, HTN, Smoking, COPD, CAD, Cancer, CVA, ARF, Chemo, Hep., AIDS, mental health diagnosis, sleep apnea, morbid obesity)? @ -None Was patient admitted / discharged? Hospital course, mention meds given and rout e, prescriptions, significant lab abnormalities, going to OR and other pertinent info. @ -Patient presenting with abdominal pain. The abdomen is soft and nontender. Patient is afebrile. He is very agitated during my evaluation. States this is the "most terrifying pain of his life." I did reassure patient that we will do extensive testing for possible diagnosis and try to improve symptoms. After leaving the room patient left AMA stating "F this place, F this doctor." Undiagnosed new problem with uncertain prognosis? @ -No Drug Therapy requiring intensive monitoring for toxicity (Heparin, Nitro, Insulin, Cardizem)? @ -No Were any procedures done? @ -No Diagnosis/symptom? @ -abdominal pain Acute, or Chronic, or Acute on Chronic? @ -acute Uncomplicated (without systemic symptoms) or Complicated (systemic symptoms)? @ -uncomplicated Side effects of treatment? @ -No Exacerbation, Progression, or Severe Exacerbation? @ -[No] Poses a threat to life or bodily function? How? (Chest pain, [place], [place], pneumonia, PE, COPD, DKA, ARF, appy, cholecystitis, CVA, Diverticulitis, Homicidal, Suicidal, threat to staff... and all critical care pts) @ -undetermined Dr. Orellana is my attending (Lien Alonzo) - Lab Data Lab Results 08/22/22 08/22/22 08/22/22 Range/Units 19:49 19:49 19:49 WBC 6.5 (3.8-10.6) k/uL RBC 4.07 L (4.30-5.90) m/uL Hgb 12.7 L (13.0-17.5) gm/dL Hct 37.7 L (39.0-53.0) % MCV 92.6 (80.0-100.0) fL MCH 31.2 (25.0-35.0) pg MCHC 33.7 (31.0-37.0) g/dL RDW 12.6 (11.5-15.5) % Plt Count 320 (150-450) k/uL MPV 7.7 Neutrophils % 60 % Lymphocytes % 29 % Monocytes % 6 % Eosinophils % 3 % Basophils % 0 % Neutrophils # 3.9 (1.3-7.7) k/uL Lymphocytes # 1.9 (1.0-4.8) k/uL Monocytes # 0.4 (0-1.0) k/uL Eosinophils # 0.2 (0-0.7) k/uL Basophils # 0.0 (0-0.2) k/uL PT 10.5 (9.0-12.0) sec INR 1.0 (<1.2) APTT 24.7 (22.0-30.0) sec Sodium 138 (137-145) mmol/L Potassium 4.7 (3.5-5.1) mmol/L Chloride 105 (98-107) mmol/L Carbon Dioxide 27 (22-30) mmol/L Anion Gap 6 mmol/L BUN 16 (9-20) mg/dL Creatinine 0.97 (0.66-1.25) mg/dL Est GFR (CKD-EPI)AfAm >90 (>60 ml/min/1.73 sqM) Est GFR (CKD-EPI)NonAf 87 (>60 ml/min/1.73 sqM) Glucose 119 H (74-99) mg/dL Calcium 9.1 (8.4-10.2) mg/dL Magnesium 1.7 (1.6-2.3) mg/dL Total Bilirubin 0.2 (0.2-1.3) mg/dL AST 28 (17-59) U/L ALT 21 (4-49) U/L Alkaline Phosphatase 65 (38-126) U/L Troponin I (0.000-0.034) ng/mL Total Protein 7.0 (6.3-8.2) g/dL Albumin 3.9 (3.5-5.0) g/dL Lipase (23-300) U/L 08/22/22 08/22/22 Range/Units 19:49 21:02 WBC (3.8-10.6) k/uL RBC (4.30-5.90) m/uL Hgb (13.0-17.5) gm/dL Hct (39.0-53.0) % MCV (80.0-100.0) fL MCH (25.0-35.0) pg MCHC (31.0-37.0) g/dL RDW (11.5-15.5) % Plt Count (150-450) k/uL MPV Neutrophils % % Lymphocytes % % Monocytes % % Eosinophils % % Basophils % % Neutrophils # (1.3-7.7) k/uL Lymphocytes # (1.0-4.8) k/uL Monocytes # (0-1.0) k/uL Eosinophils # (0-0.7) k/uL Basophils # (0-0.2) k/uL PT (9.0-12.0) sec INR (<1.2) APTT (22.0-30.0) sec Sodium (137-145) mmol/L Potassium (3.5-5.1) mmol/L Chloride (98-107) mmol/L Carbon Dioxide (22-30) mmol/L Anion Gap mmol/L BUN (9-20) mg/dL Creatinine (0.66-1.25) mg/dL Est GFR (CKD-EPI)AfAm (>60 ml/min/1.73 sqM) Est GFR (CKD-EPI)NonAf (>60 ml/min/1.73 sqM) Glucose (74-99) mg/dL Calcium (8.4-10.2) mg/dL Magnesium (1.6-2.3) mg/dL Total Bilirubin (0.2-1.3) mg/dL AST (17-59) U/L ALT (4-49) U/L Alkaline Phosphatase (38-126) U/L Troponin I <0.012 (0.000-0.034) ng/mL Total Protein (6.3-8.2) g/dL Albumin (3.5-5.0) g/dL Lipase 102 (23-300) U/L Disposition <Elif Lawson - Last Filed: 08/22/22 18:44> <Lien Alonzo - Last Filed: 08/22/22 21:33> Clinical Impression: Abdominal pain Disposition: Left Against Medical Advice Condition: Undetermined Referrals: None,Stated [Primary Care Provider] - 1-2 days
[2022-08-22 19:03] VITALS: BP 179/93; PULSE 77; RESP 18; TEMP 98
[2022-08-22 19:55] LABS: Basophils % (A) 0 %; Eosinophils # (A) 0.2 k/uL (0-0.7); Eosinophils % (A) 3 %; HCT 37.7 % (39.0-53.0); HGB 12.7 gm/dL (13.0-17.5); Lymphocytes # (A) 1.9 k/uL (1.0-4.8); Lymphocytes % (A) 29 %; MCH 31.2 pg (25.0-35.0); MCHC 33.7 g/dL (31.0-37.0); MCV 92.6 fL (80.0-100.0); Mean Platelet Volume 7.7; Monocytes # (A) 0.4 k/uL (0-1.0); Monocytes % (A) 6 %; Neutrophils # (A) 3.9 k/uL (1.3-7.7); Neutrophils % (A) 60 %; Platelet Count 320 k/uL (150-450); RBC 4.07 m/uL (4.30-5.90); RDW 12.6 % (11.5-15.5); WBC 6.5 k/uL (3.8-10.6)
[2022-08-22 20:06] LABS: ALT 21 U/L (4-49); AST 28 U/L (17-59); African American GFR (CKD) >90 (>60 ml/min/1.73 sqM); Albumin 3.9 g/dL (3.5-5.0); Alkaline Phosphatase 65 U/L (38-126); Anion Gap 6 mmol/L; Blood Urea Nitrogen 16 mg/dL (9-20); Calcium 9.1 mg/dL (8.4-10.2); Carbon Dioxide 27 mmol/L (22-30); Chloride 105 mmol/L (98-107); Glucose 119 mg/dL (74-99); Magnesium 1.7 mg/dL (1.6-2.3); Non-African American GFR(CKD) 87 (>60 ml/min/1.73 sqM); Potassium 4.7 mmol/L (3.5-5.1); Sodium 138 mmol/L (137-145); Total Bilirubin 0.2 mg/dL (0.2-1.3)
[2022-08-22 20:12] LABS: Partial Thromboplastin Time 24.7 sec (22.0-30.0); Prothrombin Time 10.5 sec (9.0-12.0)
[2022-08-22] MEDS ORDERED: ONDANSETRON 4 MG/2 ML VIAL IVP STA (21:02)
[2022-08-22] MEDS ORDERED: KETOROLAC 15 MG/ML 1 ML VIAL IVP STA (21:02)
== END 2022-08-22 21:04 | disposition left against medical advice (07) ==
LOC: EC 18:42
DX: R10.11 Right upper quadrant pain (principal); M19.90 Unspecified osteoarthritis, unspecified site; F41.9 Anxiety disorder, unspecified; F32.A Depression, unspecified; F17.200 Nicotine dependence, unspecified, uncomplicated; F12.90 Cannabis use, unspecified, uncomplicated; Z88.8 Allergy status to other drugs, medicaments and biological substances; Z91.048 Other nonmedicinal substance allergy status; Z79.82 Long term (current) use of aspirin; Z79.899 Other long term (current) drug therapy; Z53.29 Procedure and treatment not carried out because of patient's decision for other reasons
CPT/HCPCS: 36415; 80053; 83690; 83735; 84484; 85025; 85610; 85730; 93005; 99284

== ENCOUNTER 2022-11-19 17:45 | Emergency (ER) | payer MEDICARE, OTHER ==
[2022-11-19 17:55] VITALS: TEMP 97.8
--- NOTE | 2022-11-19 18:17 | ED ---
Chest Pain HPI - General Chief Complaint: Chest Pain Stated Complaint: Chest Pain Time Seen by Provider: 11/19/22 18:02 Source: patient, RN notes reviewed, old records reviewed Mode of arrival: ambulatory Limitations: no limitations - History of Present Illness Initial Comments: This is a 56-year-old male who is well-known to this emergency for her. Patient is presented today for evaluation regards to chest pain. Initial complaint of chest pain mild anxiety. Patient again does have multiple emergency department visits for similar complaints. Patient's primary ER visits mostly do resolve around anxiety. Patient stating this chest pain is similar to his normal and in his left shoulder. MD Complaint: chest pain -: hour(s) Onset: during rest, during exertion Pain Location: left chest Pain Radiation: LUE Severity: mild Severity scale (1-10): 3 Quality: tightness, sharp Consistency: constant Improves With: nothing Worsens With: nothing Treatments Prior to Arrival: none - Related Data Home Medications Medication Instructions Recorded Confirmed Ibuprofen [Motrin Ib] 800 mg PO Q8H PRN 11/15/20 06/21/21 Aspirin EC [Ecotrin] 325 mg PO Q8H PRN 06/21/21 06/21/21 traMADol HCL 50 mg PO QID PRN 06/21/21 06/21/21 Previous Rx's Medication Instructions Recorded Azithromycin [Zithromax Z Pack] 1 tab PO DIRECTED #6 tab 01/10/22 Allergies Allergy/AdvReac Type Severity Reaction Status Date / Time buspirone [From BuSpar] AdvReac Anaphylaxis Verified 11/23/22 05:11 diphenhydramine HCl AdvReac Rapid Verified 11/23/22 05:11 [From Benadryl] Heart Rate muscle relaxers AdvReac Unknown Uncoded 11/23/22 05:11 Review of Systems ROS Statement: Those systems with pertinent positive or pertinent negative responses have been documented in the HPI. ROS Other: All systems not noted in ROS Statement are negative. EKG Findings - EKG Comments: EKG Findings:: EKG shows sinus 71 LA 121 QRS 98 QTc 415 - EKG Results: EKG: interpreted by [facility] Past Medical History Past Medical History: Osteoarthritis (OA), Pneumonia, Seizure Disorder Additional Past Medical History / Comment(s): epilepsy, chronic back/neck pain, hepatitis C,A and Hep B History of Any Multi-Drug Resistant Organisms: None Reported Past Surgical History: Hernia Repair Additional Past Surgical History / Comment(s): R inguinal hernia repair, L arm benign tumor excision. Past Anesthesia/Blood Transfusion Reactions: No Reported Reaction Past Psychological History: Anxiety, Depression Smoking Status: Current every day smoker Past Alcohol Use History: None Reported Past Drug Use History: Marijuana - Past Family History Father Family Medical History: Cancer Additional Family Medical History / Comment(s): lung/liver cancer. He is . Mother Family Medical History: Cancer Additional Family Medical History / Comment(s): Mother of lung cancer. She was a smoker. General Exam Limitations: no limitations General appearance: alert, in no apparent distress, anxious Head exam: Present: atraumatic, normocephalic, normal inspection Eye exam: Present: normal appearance, PERRL, EOMI. Absent: scleral icterus, conjunctival injection, periorbital swelling ENT exam: Present: normal exam, mucous membranes moist Neck exam: Present: normal inspection. Absent: tenderness, meningismus, lymphadenopathy Respiratory exam: Present: normal lung sounds bilaterally. Absent: respiratory distress, wheezes, rales, rhonchi, stridor Cardiovascular Exam: Present: regular rate, normal rhythm, normal heart sounds. Absent: systolic murmur, diastolic murmur, rubs, gallop, clicks GI/Abdominal exam: Present: soft, normal bowel sounds. Absent: distended, tenderness, guarding, rebound, rigid Extremities exam: Present: normal inspection, full ROM, normal capillary refill. Absent: tenderness, pedal edema, joint swelling, calf tenderness Back exam: Present: normal inspection Neurological exam: Present: alert, oriented X3, CN II-XII intact Psychiatric exam: Present: normal affect, normal mood Skin exam: Present: warm, dry, intact, normal color. Absent: rash Course Vital Signs 11/19/22 11/19/22 11/19/22 17:46 18:14 19:32 Temperature 97.8 F Pulse Rate 84 73 72 Respiratory 20 15 16 Rate Blood Pressure 128/80 134/85 140/81 O2 Sat by Pulse 100 95 99 Oximetry - Reevaluation(s) Reevaluation #1: 11/19/22 20:03 Medical records reviewed Reevaluation #2: 11/19/22 20:03 Patient has episodic chest pain here in the ER Reevaluation #3: 11/19/22 20:04 Patient informed results and questions are answered Reevaluation #4: 11/19/22 18:32 Was pt. sent in by a medical professional or institution? @ -no Did you speak to anyone other than the patient for history? @ -no Did you review nursing and triage notes? @ -agree Were old charts reviewed? @ -yes Differential Diagnosis? @ -prior EKG interpreted by me (3pts min.)? @ -yes X-rays interpreted by me (1pt min.)? @ -yes CT interpreted by me (1pt min.)? @ -no U/S interpreted by me (1pt. min.)? @ -no What testing was considered but not performed? (CT, X-rays, U/S, labs)? Why? @ -no What meds were considered but not given? Why? @ -no Did you discuss the management of the patient with other professionals? @ -no Did you reconcile home meds? @ -no Was smoking cessation discussed for >3mins.? @ -no Was critical care preformed (if so, how long)? @ -no Were there social determinants of health that impacted care today? How? (Homelessness, low income, unemployed, alcoholism, drug addiction, transportation, low edu. Level, literacy, decrease access to med. care, correction, rehab)? @ -no Was there de-escalation of care discussed even if they declined? (Discuss DNR or withdrawal of care, Hospice)? @ -no What co-morbidities impacted this encounter? (DM, HTN, Smoking, COPD, CAD, Cancer, CVA, Hep., AIDS, mental health diagnosis, sleep apnea, morbid obesity)? @ -none Was patient admitted / discharged? @ -56 male to the emergency department for evaluation. Patient resents for chest pain with underlying anxiety. Patient feels well here in the ER with normal lab values signs and symptoms. Patient can be discharged home Discharge Undiagnosed new problem with uncertain prognosis? @ -no Drug Therapy requiring intensive monitoring for toxicity (Heparin, Nitro, Insulin, Cardizem)? @ -no Were any procedures done? @ -no Diagnosis/symptom? @ -Chest pain, anxiety Acute, or Chronic, or Acute on Chronic? @ -acute Uncomplicated (without systemic symptoms) or Complicated (systemic symptoms)? @ -complicated Side effects of treatment? @ -no Exacerbation, Progression, or Severe Exacerbation] @ -no Poses a threat to life or bodily function? @ -yes has any case for chest pain, ACS Reevaluation #5: 11/19/22 18:32 Differential Chest Pain: Stable Angina, Unstable Angina, STEMI, NSTEMI Aortic Dissection, Pneumothorax, Musculoskeletal, Esophageal Spasm GERD, Cholecystitis, Pancreatitis, Zoster, this is not meant to be an all-inclusive list. Chest Pain MDM - MDM 56 male to the emergency department for evaluation. Patient resents for chest pain with underlying anxiety. Patient feels well here in the ER with normal lab values signs and symptoms. Patient can be discharged home Disposition Clinical Impression: Chest pain Disposition: HOME SELF-CARE Condition: Good Instructions (If sedation given, give patient instructions): Chest Pain (ED) Is patient prescribed a controlled substance at d/c from ED?: No Referrals: None,Stated [Primary Care Provider] - 1-2 days Time of Disposition: 19:30
[2022-11-19 18:40] LABS: Basophils % (A) 0 %; Eosinophils # (A) 0.2 k/uL (0-0.7); Eosinophils % (A) 4 %; HCT 38.3 % (39.0-53.0); HGB 12.9 gm/dL (13.0-17.5); Lymphocytes # (A) 1.2 k/uL (1.0-4.8); Lymphocytes % (A) 23 %; MCH 31.9 pg (25.0-35.0); MCHC 33.6 g/dL (31.0-37.0); MCV 94.7 fL (80.0-100.0); Mean Platelet Volume 7.8; Monocytes # (A) 0.3 k/uL (0-1.0); Monocytes % (A) 6 %; Neutrophils # (A) 3.3 k/uL (1.3-7.7); Neutrophils % (A) 66 %; Platelet Count 242 k/uL (150-450); RBC 4.05 m/uL (4.30-5.90); RDW 13.1 % (11.5-15.5)
[2022-11-19 18:51] LABS: ALT 15 U/L (4-49); AST 24 U/L (17-59); African American GFR (CKD) >90 (>60 ml/min/1.73 sqM); Albumin 3.9 g/dL (3.5-5.0); Alkaline Phosphatase 54 U/L (38-126); Anion Gap 12 mmol/L; Blood Urea Nitrogen 15 mg/dL (9-20); Calcium 9.5 mg/dL (8.4-10.2); Carbon Dioxide 20 mmol/L (22-30); Chloride 106 mmol/L (98-107); Glucose 85 mg/dL (74-99); Lipase 71 U/L (23-300); Non-African American GFR(CKD) >90 (>60 ml/min/1.73 sqM); Potassium 4.1 mmol/L (3.5-5.1); Sodium 138 mmol/L (137-145); Total Bilirubin 0.3 mg/dL (0.2-1.3); Total Protein 7.1 g/dL (6.3-8.2)
--- NOTE | 2022-11-19 19:20 | XR ---
EXAMINATION TYPE: XR chest 1V portable DATE OF EXAM: 11/19/2022 7:01 PM COMPARISON: Chest radiographs from 06/08/2022 TECHNIQUE: XR chest 1V portable Frontal view of the chest. CLINICAL INDICATION:Male, 56 years old with history of chest pain; FINDINGS: Lungs/Pleura: There is no evidence of pleural effusion, focal consolidation, or pneumothorax. Pulmonary vascularity: Unremarkable. Heart/mediastinum: Cardiomediastinal silhouette is unremarkable. Musculoskeletal: No acute osseous pathology. IMPRESSION: No acute cardiopulmonary disease/process.
[2022-11-19 19:33] VITALS: BP 140/81; PULSE 72; RESP 16
[2022-11-19] MEDS ORDERED: KETOROLAC 15 MG/ML 1 ML VIAL IVP STA (19:51)
== END 2022-11-19 20:07 | disposition home or self-care (01) ==
LOC: EC 17:45
DX: R07.89 Other chest pain (principal); M19.90 Unspecified osteoarthritis, unspecified site; F17.200 Nicotine dependence, unspecified, uncomplicated; F12.90 Cannabis use, unspecified, uncomplicated; Z79.82 Long term (current) use of aspirin; Z79.891 Long term (current) use of opiate analgesic; Z79.1 Long term (current) use of non-steroidal anti-inflammatories (NSAID); Z86.59 Personal history of other mental and behavioral disorders; Z88.8 Allergy status to other drugs, medicaments and biological substances
CPT/HCPCS: 36415; 93005; 83880; 80053; 83690; 83735; 84484; 85025; 71045; 99285; 96374; J1885

== ENCOUNTER 2023-01-05 23:15 | Emergency (ER) | payer MEDICARE, MEDICAID ==
--- NOTE | 2023-01-05 23:17 | ED ---
Anxiety HPI - General Stated Complaint: MENTAL HEALTH Time Seen by Provider: 01/05/23 23:16 Source: RN notes reviewed, old records reviewed Limitations: no limitations - History of Present Illness Initial Comments: This is a 57-year-old male to the emergency department and he presents today for evaluation % better evaluation of severe anxiety. Manager Of Application Development to alleged the patient may have been doing meth today. Patient is very hostile combative currently. Unable to provide history of present illness MD Complaint: anxiety, heart racing -: unknown Symptoms: dyspnea, chest pain, palpitations Place: home Previous History of Same: Yes Severity: mild Provoking factors: emotional stress Improves With: medication Worsens With: medication Associated symptoms: chest pain, shortness of breath, palpitations - Related Data Home Medications: Home Medications Medication Instructions Recorded Confirmed Ibuprofen [Motrin Ib] 800 mg PO Q8H PRN 11/15/20 06/21/21 Aspirin EC [Ecotrin] 325 mg PO Q8H PRN 06/21/21 06/21/21 traMADol HCL 50 mg PO QID PRN 06/21/21 06/21/21 Previous Rx's Medication Instructions Recorded Azithromycin [Zithromax Z Pack] 1 tab PO DIRECTED #6 tab 01/10/22 Allergies/Adverse Reactions: Allergies Allergy/AdvReac Type Severity Reaction Status Date / Time buspirone [From BuSpar] AdvReac Anaphylaxis Verified 01/05/23 23:28 diphenhydramine HCl AdvReac Rapid Verified 01/05/23 23:28 [From Benadryl] Heart Rate muscle relaxers AdvReac Unknown Uncoded 01/05/23 23:28 Review of Systems ROS Statement: Those systems with pertinent positive or pertinent negative responses have been documented in the HPI. ROS Other: All systems not noted in ROS Statement are negative. Past Medical History Past Medical History: Osteoarthritis (OA), Pneumonia, Seizure Disorder Additional Past Medical History / Comment(s): epilepsy, chronic back/neck pain, hepatitis C,A and Hep B History of Any Multi-Drug Resistant Organisms: None Reported Past Surgical History: Hernia Repair Additional Past Surgical History / Comment(s): R inguinal hernia repair, L arm benign tumor excision. Past Anesthesia/Blood Transfusion Reactions: No Reported Reaction Past Psychological History: Anxiety, Depression Smoking Status: Current every day smoker Past Alcohol Use History: None Reported Past Drug Use History: Marijuana - Past Family History Father Family Medical History: Cancer Additional Family Medical History / Comment(s): lung/liver cancer. He is . Mother Family Medical History: Cancer Additional Family Medical History / Comment(s): Mother of lung cancer. She was a smoker. General Exam General appearance: alert, in no apparent distress, anxious Head exam: Present: atraumatic, normocephalic, normal inspection Eye exam: Present: normal appearance, PERRL, EOMI. Absent: scleral icterus, conjunctival injection, periorbital swelling ENT exam: Present: normal exam, mucous membranes moist Neck exam: Present: normal inspection. Absent: tenderness, meningismus, lymphadenopathy Respiratory exam: Present: normal lung sounds bilaterally. Absent: respiratory distress, wheezes, rales, rhonchi, stridor Cardiovascular Exam: Present: regular rate, normal rhythm, normal heart sounds. Absent: systolic murmur, diastolic murmur, rubs, gallop, clicks GI/Abdominal exam: Present: soft, normal bowel sounds. Absent: distended, tenderness, guarding, rebound, rigid Extremities exam: Present: normal inspection, full ROM, normal capillary refill. Absent: tenderness, pedal edema, joint swelling, calf tenderness Back exam: Present: normal inspection Neurological exam: Present: alert, oriented X3, CN II-XII intact Psychiatric exam: Present: normal affect, normal mood Skin exam: Present: warm, dry, intact, normal color. Absent: rash Course Vital Signs 01/05/23 01/06/23 01/06/23 23:18 00:03 06:43 Temperature 98.4 F 98.3 F Pulse Rate 105 H 63 Respiratory 24 18 Rate Blood Pressure 205/124 155/91 O2 Sat by Pulse 98 100 Oximetry - Reevaluation(s) Reevaluation #1: 01/05/23 23:17 Medical records reviewed Medical clear for psychiatric evaluation Medical Decision Making - Medical Decision Making 57 male was seen and evaluated by psychiatry here in the ER, this point patient is in the morning deemed stable for discharge and can be discharged home Disposition Clinical Impression: Acute anxiety, Acute psychosis Disposition: HOME SELF-CARE Condition: Good Instructions (If sedation given, give patient instructions): Mood Disorders (ED) Is patient prescribed a controlled substance at d/c from ED?: No Referrals: None,Stated [Primary Care Provider] - 1-2 days
[2023-01-06] MEDS ORDERED: LORazepam 1 MG TAB PO STA (00:27)
[2023-01-06] MEDS ORDERED: HALOPERIDOL LACTATE 5 MG/ML 1 ML VIAL IM STA (02:07)
[2023-01-06 06:46] VITALS: BP 155/91; PULSE 63; RESP 18; TEMP 98.3
== END 2023-01-06 06:47 | disposition home or self-care (01) ==
LOC: EC 23:15
DX: F41.9 Anxiety disorder, unspecified (principal); F23 Brief psychotic disorder; M19.90 Unspecified osteoarthritis, unspecified site; F17.200 Nicotine dependence, unspecified, uncomplicated; F12.90 Cannabis use, unspecified, uncomplicated; Z79.1 Long term (current) use of non-steroidal anti-inflammatories (NSAID); Z79.82 Long term (current) use of aspirin; Z86.59 Personal history of other mental and behavioral disorders; Z88.6 Allergy status to analgesic agent; Z88.8 Allergy status to other drugs, medicaments and biological substances
CPT/HCPCS: 82075; 99285

== ENCOUNTER 2023-04-15 21:01 | Emergency (ER) | payer MEDICARE, OTHER ==
--- NOTE | 2023-04-15 21:09 | ED ---
Upper Extremity HPI - General Source: patient, RN notes reviewed <Esthela Rodriguez - Last Filed: 04/15/23 21:08> <Deep Moore - Last Filed: 04/15/23 22:27> - General Stated Complaint: Left shoulder pain Time Seen by Provider: 04/15/23 21:08 - History of Present Illness Initial Comments: patient is a 57-year-old male presented ER with chief complaint of left shoulder pain. Patient denies any known injuries. Patient denies any fevers or chills. (Esthela Rodriguez) 57-year-old male presents to the ED with a chief complaint of left shoulder pain. Denies any injury. Patient states in February he heard a pop in his shoulder. Since then has had ongoing pain. Reports that he saw Dr. Garay for this and was unable to find any findings on x-ray. Patient states he is here to "find out what is wrong with his shoulder". (Deep Moore) - Related Data Home Medications Medication Instructions Recorded Confirmed Ibuprofen [Motrin Ib] 800 mg PO Q8H PRN 11/15/20 06/21/21 Aspirin EC [Ecotrin] 325 mg PO Q8H PRN 06/21/21 06/21/21 traMADol HCL 50 mg PO QID PRN 06/21/21 06/21/21 Previous Rx's Medication Instructions Recorded Azithromycin [Zithromax Z Pack] 1 tab PO DIRECTED #6 tab 01/10/22 Allergies Allergy/AdvReac Type Severity Reaction Status Date / Time buspirone [From BuSpar] AdvReac Anaphylaxis Verified 04/15/23 21:26 diphenhydramine HCl AdvReac Rapid Verified 04/15/23 21:26 [From Benadryl] Heart Rate muscle relaxers AdvReac Unknown Uncoded 04/15/23 21:26 Review of Systems ROS Other: All systems not noted in ROS Statement are negative. <Esthela Rodriguez - Last Filed: 04/15/23 21:08> ROS Other: All systems not noted in ROS Statement are negative. <Deep Moore - Last Filed: 04/15/23 22:27> ROS Statement: Those systems with pertinent positive or pertinent negative responses have been documented in the HPI. Past Medical History Past Medical History: Osteoarthritis (OA), Pneumonia, Seizure Disorder Additional Past Medical History / Comment(s): epilepsy, chronic back/neck pain, hepatitis C,A and Hep B History of Any Multi-Drug Resistant Organisms: None Reported Past Surgical History: Hernia Repair Additional Past Surgical History / Comment(s): R inguinal hernia repair, L arm benign tumor excision. Past Anesthesia/Blood Transfusion Reactions: No Reported Reaction Past Psychological History: Anxiety, Depression Smoking Status: Current every day smoker Past Alcohol Use History: None Reported Past Drug Use History: Marijuana - Past Family History Father Family Medical History: Cancer Additional Family Medical History / Comment(s): lung/liver cancer. He is . Mother Family Medical History: Cancer Additional Family Medical History / Comment(s): Mother of lung cancer. She was a smoker. <Esthela Rodriguez - Last Filed: 04/15/23 21:08> General Exam <Esthela Rodriguez - Last Filed: 04/15/23 21:08> General appearance: alert Neck exam: Present: normal inspection Extremities exam: Present: normal inspection, other (Ambulates without difficu lty) Neurological exam: Present: alert <Deep Moore - Last Filed: 04/15/23 22:27> - General Exam Comments Initial Comments: Visual Physical Exam Vital signs reviewed General: Well-appearing, nontoxic, no acute distress. Head: Normocephalic, atraumatic Eyes: PERRLA, EOMI ENT: Airway patent Chest: Nonlabored breathing Skin: No visual rash, normal skin tone Neuro: Alert and oriented 3 Musculoskeletal: No gross abnormalities (Esthela Rodriguez) Course Vital Signs 04/15/23 21:21 Temperature 97.8 F Pulse Rate 90 Respiratory 18 Rate Blood Pressure 171/96 O2 Sat by Pulse 99 Oximetry Medical Decision Making <Esthela Rodriguez - Last Filed: 04/15/23 21:08> <Deep Moore - Last Filed: 04/15/23 22:27> - Medical Decision Making I performed the quick note portion of the exam. Electronically signed by Esthela Rodriguez PA-C (Esthela Rodriguez) Was pt. sent in by a medical professional or institution (YOSSI Santizo, CASE MANAGEMENT COORDINATOR, urgent care, hospital, or detention...) When possible be specific @ -No Did you speak to anyone other than the patient for history (EMS, parent, family, police, friend...)? What history was obtained from this source @ -No Did you review nursing and triage notes (agree or disagree)? Why? @ -I reviewed and agree with nursing and triage notes Were old charts reviewed (outside hosp., previous admission, EMS record, old EKG, old radiological studies, urgent care reports/EKG's, detention records)? Report findings @ -No old charts were reviewed Differential Diagnosis (chest pain, altered mental status, abdominal pain women, abdominal pain men, vaginal bleeding, weakness, fever, dyspnea, syncope, headache, dizziness, GI bleed, back pain, seizure, CVA, palpatations, mental health, musculoskeletal)? @ -Differential Musculoskeletal Muscular strain, contusion, ligament sprain, fracture, arthritis, septic arthritis, bursitis, cellulitis, muscle spasm, nerve compression, DVT, arterial occlusion, herpes zoster, electrolyte abnormality, tumor.... This is not meant to be in all inclusive list EKG interpreted by me (3pts min.). @ -As above X-rays interpreted by me (1pt min.). @ -None done CT interpreted by me (1pt min.). @ -None done U/S interpreted by me (1pt. min.). @ -None done What testing was considered but not performed or refused? (CT, X-rays, U/S, labs)? Why? @ -None What meds were considered but not given or refused? Why? @ -None Did you discuss the management of the patient with other professionals (professionals i.e. , PA, CASE MANAGEMENT COORDINATOR, lab, RT, psych nurse, social services analyst, carrot buncher, teacher, police liaison officer, lead case manager)? Give summary @ -No Was smoking cessation discussed for >3mins.? @ -No Was critical care preformed (if so, how long)? @ -No Were there social determinants of health that impacted care today? How? (Homel essness, low income, unemployed, alcoholism, drug addiction, transportation, low edu. Level, literacy, decrease access to med. care, fci, rehab)? @ -No Was there de-escalation of care discussed even if they declined (Discuss DNR or withdrawal of care, Hospice)? DNR status @ -No What co-morbidities impacted this encounter? (DM, HTN, Smoking, COPD, CAD, Cancer, CVA, ARF, Chemo, Hep., AIDS, mental health diagnosis, sleep apnea, morbid obesity)? @ -None Was patient admitted / discharged? Hospital course, mention meds given and route, prescriptions, significant lab abnormalities, going to OR and other pertinent info. @ -Discharge Upon obtaining patient's history, patient became angry and patient left. X-ray was obtained however this has not been interpreted by radiology at this time. Undiagnosed new problem with uncertain prognosis? @ -No Drug Therapy requiring intensive monitoring for toxicity (Heparin, Nitro, Insulin, Cardizem)? @ -No Were any procedures done? @ -No Diagnosis/symptom? @ -Shoulder pain Acute, or Chronic, or Acute on Chronic? @ -Acute on chronic Uncomplicated (without systemic symptoms) or Complicated (systemic symptoms)? @ -Uncomplicated Side effects of treatment? @ -No Exacerbation, Progression, or Severe Exacerbation? @ -No Poses a threat to life or bodily function? How? (Chest pain, [place], [place], pneumonia, PE, COPD, DKA, ARF, appy, cholecystitis, CVA, Diverticulitis, Homicidal, Suicidal, threat to staff... and all critical care pts) @ -No (Deep Moore) Disposition <Esthela Rodriguez - Last Filed: 04/15/23 21:08> Time of Disposition: 22:27 <Deep Moore - Last Filed: 04/15/23 22:27> Clinical Impression: Shoulder pain Disposition: LEFT AGAINST MEDICAL ADVICE Referrals: None,Stated [Primary Care Provider] - 1-2 days
[2023-04-15 21:33] VITALS: BP 171/96; PULSE 90; RESP 18; TEMP 97.8
--- NOTE | 2023-04-16 00:28 | XR ---
EXAMINATION TYPE: XR shoulder complete LT DATE OF EXAM: 04/15/2023 9:34 PM CLINICAL INDICATION:Male, 57 years old with history of pain; [facility] COMPARISON: 04/30/2022 TECHNIQUE: XR shoulder complete LT; shoulder was examined in AP, internally rotated and scapular Y p rojections. FINDINGS: Normal mineralization. No acute fracture lucency or dislocation. Joint spaces are maintained. Unremar kable soft tissues without radiopaque foreign body seen. IMPRESSION: No acute osseous pathology.
== END 2023-04-15 22:04 | disposition left against medical advice (07) ==
LOC: EC 21:01
DX: M25.512 Pain in left shoulder (principal); M19.90 Unspecified osteoarthritis, unspecified site; F17.200 Nicotine dependence, unspecified, uncomplicated; F12.90 Cannabis use, unspecified, uncomplicated; Z86.59 Personal history of other mental and behavioral disorders; Z79.1 Long term (current) use of non-steroidal anti-inflammatories (NSAID); Z79.82 Long term (current) use of aspirin; Z88.8 Allergy status to other drugs, medicaments and biological substances
CPT/HCPCS: 99283

== ENCOUNTER → 2023-06-20 | Outpatient (CLI) | payer MEDICARE, OTHER ==
--- NOTE | 2023-06-20 10:36 | XR ---
5 view cervical and two-view thoracic spine. DATE: 06/20/2023. COMPARISON: None available. CLINICAL HISTORY: Neck pain. FINDINGS: There is straightening of the normal cervical lordosis. There is a grade 1 anterolisthesis of C3 on C 4 secondary to degenerative facet arthropathy. There is multilevel moderate to severe degenerative disc, facet and uncovertebral joint changes seen throughout the cervical spine. There is some very mild endplate changes seen throughout the thoracic spine with the disc spaces otherwise appear preserved. Pedicles are unremarkable. Additionally there is scattered areas of neural foraminal stenosis in the mid to lower cervical spine . There is no prevertebral soft tissue swelling. IMPRESSION: Degenerative changes as above with no acute osseous abnormality.
== END | disposition home or self-care (01) ==
LOC: RADXRMAIN 10:08
PROVIDERS: ATTEND Internal Medicine
DX: M47.812 Spondylosis without myelopathy or radiculopathy, cervical region (principal); M50.30 Other cervical disc degeneration, unspecified cervical region; M43.12 Spondylolisthesis, cervical region; M99.71 Connective tissue and disc stenosis of intervertebral foramina of cervical region
CPT/HCPCS: 72050; 72072

== ENCOUNTER 2024-03-30 23:00 | Emergency (ER) | payer MEDICARE, OTHER ==
[2024-03-30 23:11] VITALS: RESP 18; TEMP 98.3
--- NOTE | 2024-03-30 23:38 | ED ---
Abdominal Pain HPI - General Chief Complaint: Abdominal Pain Stated Complaint: abd pain Time Seen by Provider: 03/30/24 23:37 Source: patient, RN notes reviewed Mode of arrival: ambulatory Limitations: no limitations - History of Present Illness Initial Comments: 58-year-old male presenting to the ER with a chief complaint of left inguinal pain. Patient states since December he has been noticing pain in his left inguinal area. He does report an incidence of coughing and feeling a "pop" in his left inguinal area. He states since then he has noticed a bulge in that area that is tender to touch. He states he rides his mountain bike frequently and this causes increase in pain and discomfort to the area. He reports normal bowel movements last 1 just prior to arrival. Denies any urinary complaints. No sexual activity or concern of STDs. No fevers. No other complaints. - Related Data Home Medications Medication Instructions Recorded Confirmed Ibuprofen [Motrin Ib] 800 mg PO Q8H PRN 11/15/20 06/21/21 Aspirin EC [Ecotrin] 325 mg PO Q8H PRN 06/21/21 06/21/21 traMADol HCL 50 mg PO QID PRN 06/21/21 06/21/21 Previous Rx's Medication Instructions Recorded Azithromycin [Zithromax Z Pack] 1 tab PO DIRECTED #6 tab 01/10/22 Allergies Allergy/AdvReac Type Severity Reaction Status Date / Time buspirone [From BuSpar] AdvReac Anaphylaxis Verified 03/30/24 23:08 diphenhydramine HCl AdvReac Rapid Verified 03/30/24 23:08 [From Benadryl] Heart Rate muscle relaxers AdvReac Unknown Uncoded 03/30/24 23:08 Review of Systems ROS Statement: Those systems with pertinent positive or pertinent negative responses have been documented in the HPI. ROS Other: All systems not noted in ROS Statement are negative. Past Medical History Past Medical History: Osteoarthritis (OA), Pneumonia, Seizure Disorder Additional Past Medical History / Comment(s): epilepsy, chronic back/neck pain, hepatitis C,A and Hep B History of Any Multi-Drug Resistant Organisms: None Reported Past Surgical History: Hernia Repair Additional Past Surgical History / Comment(s): R inguinal hernia repair, L arm benign tumor excision. Past Anesthesia/Blood Transfusion Reactions: No Reported Reaction Past Psychological History: Anxiety, Depression Smoking Status: Current every day smoker Past Alcohol Use History: None Reported Past Drug Use History: Marijuana - Past Family History Father Family Medical History: Cancer Additional Family Medical History / Comment(s): lung/liver cancer. He is . Mother Family Medical History: Cancer Additional Family Medical History / Comment(s): Mother of lung cancer. She was a smoker. General Exam Limitations: no limitations General appearance: alert, in no apparent distress Respiratory exam: Present: normal lung sounds bilaterally. Absent: respiratory distress, wheezes, rales, rhonchi, stridor Cardiovascular Exam: Present: regular rate, normal rhythm, normal heart sounds. Absent: systolic murmur, diastolic murmur, rubs, gallop, clicks GI/Abdominal exam: Present: soft, normal bowel sounds. Absent: distended, tenderness, guarding, rebound, rigid exam: Present: circumcision, other (tenderness and buldging to left inguinal region) Neurological exam: Present: alert, oriented X3, CN II-XII intact Psychiatric exam: Present: anxious Skin exam: Present: warm, dry, intact, normal color. Absent: rash Course Vital Signs 03/30/24 03/31/24 23:08 01:25 Temperature 98.3 F Pulse Rate 77 80 Respiratory 18 18 Rate Blood Pressure 200/97 150/90 O2 Sat by Pulse 100 99 Oximetry Medical Decision Making - Medical Decision Making Was pt. sent in by a medical professional or institution (, PA, PANTS BUSHELER, urgent care, hospital, or fci...) When possible be specific @ -No Did you speak to anyone other than the patient for history (EMS, parent, family, police, friend...)? What history was obtained from this source @ -No Did you review nursing and triage notes (agree or disagree)? Why? @ -I reviewed and agree with nursing and triage notes Were old charts reviewed (outside hosp., previous admission, EMS record, old EKG, old radiological studies, urgent care reports/EKG's, fci records)? Report findings @ -No old charts were reviewed Differential Diagnosis (chest pain, altered mental status, abdominal pain women, abdominal pain men, vaginal bleeding, weakness, fever, dyspnea, syncope, headache, dizziness, GI bleed, back pain, seizure, CVA, palpatations, mental health, musculoskeletal)? @ -Differential Abdominal Pain Men: Appendicitis, cholecystitis, diverticulosis, ischemic bowel, pancreatitis, hepatitis, UTI, gastroenteritis, AAA, incarcerated hernia, bowel obstruction, constipation, inflammatory bowel, hepatitis, peptic ulcer disease, splenic infarction, perforated viscus, testicular torsion, this is not meant to be an all-inclusive list EKG interpreted by me (3pts min.). @ -None done X-rays interpreted by me (1pt min.). @ -None done CT interpreted by me (1pt min.). @ -CT abdomen pelvis showing a small to moderate size left inguinal hernia containing ill-defined fluid. No other acute abnormality identified. U/S interpreted by me (1pt. min.). @ -None done What testing was considered but not performed or refused? (CT, X-rays, U/S, labs)? Why? @ -None What meds were considered but not given or refused? Why? @ -None Did you discuss the management of the patient with other professionals (professionals i.e. , PA, PANTS BUSHELER, lab, RT, psych nurse, social work administrator, attorney lawyer, teacher, consumer loan officer, case consultant)? Give summary @ -No Was smoking cessation discussed for >3mins.? @ -No Was critical care preformed (if so, how long)? @ -No Were there social determinants of health that impacted care today? How? (Homelessness, low income, unemployed, alcoholism, drug addiction, transportation, low edu. Level, literacy, decrease access to med. care, senior care, rehab)? @ -No Was there de-escalation of care discussed even if they declined (Discuss DNR or withdrawal of care, Hospice)? DNR status @ -No What co-morbidities impacted this encounter? (DM, HTN, Smoking, COPD, CAD, Cancer, CVA, ARF, Chemo, Hep., AIDS, mental health diagnosis, sleep apnea, morbid obesity)? @ -None Was patient admitted / discharged? Hospital course, mention meds given and route, prescriptions, significant lab abnormalities, going to OR and other pertinent info. @ -Discharge. 58-year-old male presenting to the ER with a chief complaint of left inguinal pain. History and physical exam completed. Patient is hypertensive upon arrival at 200/97 this is believed to be due from pain and anxiety. Vitals otherwise stable. Patient in no signs of acute distress. Exam remarkable for tenderness and bulging to left inguinal region. Laboratory studies obtained unremarkable. Urinalysis unremarkable. CT abdomen pelvis performed and showing a small to moderate size left inguinal hernia containing ill-defined fluid. As hernia contains fluid and no bowel reduction was deferred at this time. Patient received symptomatic control in the ER. Patient stable for discharge with general surgery follow-up, referral given. Strict return parameters discussed. Patient discharged in stable condition with follow-up to general surgery. Patient verbally expressed understanding and agreement with care plan. Case discussed with ED attending, Dr. Orellana. Undiagnosed new problem with uncertain prognosis? @ -No Drug Therapy requiring intensive monitoring for toxicity (Heparin, Nitro, Insulin, Cardizem)? @ -No Were any procedures done? @ -No Diagnosis/symptom? @ -Left inguinal hernia Acute, or Chronic, or Acute on Chronic? @ -Acute Uncomplicated (without systemic symptoms) or Complicated (systemic symptoms)? @ -Uncomplicated Side effects of treatment? @ -No Exacerbation, Progression, or Severe Exacerbation? @ -No Poses a threat to life or bodily function? How? (Chest pain, [place], [place], pneumonia, PE, COPD, DKA, ARF, appy, cholecystitis, CVA, Diverticulitis, Homicidal, Suicidal, threat to staff... and all critical care pts) @ -Low at this time. Hernias can lead to bowel obstruction - Lab Data Result diagrams: 03/30/24 23:50 03/30/24 23:50 Lab Results 03/30/24 03/30/24 03/30/24 Range/Units 23:34 23:50 23:50 WBC 5.4 (3.8-10.6) k/uL RBC 4.53 (4.30-5.90) m/uL Hgb 14.1 (13.0-17.5) gm/dL Hct 42.8 (39.0-53.0) % MCV 94.6 (80.0-100.0) fL MCH 31.1 (25.0-35.0) pg MCHC 32.8 (31.0-37.0) g/dL RDW 13.0 (11.5-15.5) % Plt Count 234 (150-450) k/uL MPV 7.6 Neutrophils % 49 % Lymphocytes % 34 % Monocytes % 7 % Eosinophils % 6 % Basophils % 1 % Neutrophils # 2.7 (1.3-7.7) k/uL Lymphocytes # 1.9 (1.0-4.8) k/uL Monocytes # 0.4 (0-1.0) k/uL Eosinophils # 0.3 (0-0.7) k/uL Basophils # 0.0 (0-0.2) k/uL Sodium 137 (137-145) mmol/L Potassium 4.8 (3.5-5.1) mmol/L Chloride 107 (98-107) mmol/L Carbon Dioxide 28 (22-30) mmol/L Anion Gap 2 mmol/L BUN 22 H (9-20) mg/dL Creatinine 0.83 (0.66-1.25) mg/dL Est GFR (CKD-EPI)AfAm >90 (>60 ml/min/1.73 sqM) Est GFR (CKD-EPI)NonAf >90 (>60 ml/min/1.73 sqM) Glucose 93 (74-99) mg/dL Plasma Lactic Acid Juan M (0.7-2.0) mmol/L Calcium 9.5 (8.4-10.2) mg/dL Total Bilirubin 0.4 (0.2-1.3) mg/dL AST 22 (17-59) U/L ALT 14 (4-49) U/L Alkaline Phosphatase 55 (38-126) U/L Total Protein 7.0 (6.3-8.2) g/dL Albumin 4.0 (3.5-5.0) g/dL Urine Color Colorless Urine Appearance Clear (Clear) Urine pH 7.0 (5.0-8.0) Ur Specific [place] 1.012 (1.001-1.035) Urine Protein Negative (Negative) Urine Glucose (UA) Negative (Negative) Urine Ketones Negative (Negative) Urine Blood Negative (Negative) Urine Nitrite Negative (Negative) Urine Bilirubin Negative (Negative) Urine Urobilinogen <2.0 (<2.0) mg/dL Ur Leukocyte Esterase Negative (Negative) 03/30/24 Range/Units 23:50 WBC (3.8-10.6) k/uL RBC (4.30-5.90) m/uL Hgb (13.0-17.5) gm/dL Hct (39.0-53.0) % MCV (80.0-100.0) fL MCH (25.0-35.0) pg MCHC (31.0-37.0) g/dL RDW (11.5-15.5) % Plt Count (150-450) k/uL MPV Neutrophils % % Lymphocytes % % Monocytes % % Eosinophils % % Basophils % % Neutrophils # (1.3-7.7) k/uL Lymphocytes # (1.0-4.8) k/uL Monocytes # (0-1.0) k/uL Eosinophils # (0-0.7) k/uL Basophils # (0-0.2) k/uL Sodium (137-145) mmol/L Potassium (3.5-5.1) mmol/L Chloride (98-107) mmol/L Carbon Dioxide (22-30) mmol/L Anion Gap mmol/L BUN (9-20) mg/dL Creatinine (0.66-1.25) mg/dL Est GFR (CKD-EPI)AfAm (>60 ml/min/1.73 sqM) Est GFR (CKD-EPI)NonAf (>60 ml/min/1.73 sqM) Glucose (74-99) mg/dL Plasma Lactic Acid Juan M 1.0 (0.7-2.0) mmol/L Calcium (8.4-10.2) mg/dL Total Bilirubin (0.2-1.3) mg/dL AST (17-59) U/L ALT (4-49) U/L Alkaline Phosphatase (38-126) U/L Total Protein (6.3-8.2) g/dL Albumin (3.5-5.0) g/dL Urine Color Urine Appearance (Clear) Urine pH (5.0-8.0) Ur Specific [place] (1.001-1.035) Urine Protein (Negative) Urine Glucose (UA) (Negative) Urine Ketones (Negative) Urine Blood (Negative) Urine Nitrite (Negative) Urine Bilirubin (Negative) Urine Urobilinogen (<2.0) mg/dL Ur Leukocyte Esterase (Negative) - Radiology Data Radiology results: report reviewed, image reviewed Disposition Clinical Impression: Inguinal hernia Disposition: HOME SELF-CARE Condition: Stable Instructions (If sedation given, give patient instructions): Inguinal Hernia (ED) Additional Instructions: Follow-up with general surgery. Return to the ER for any new or worsening concerns. Is patient prescribed a controlled substance at d/c from ED?: No Referrals: [facility] [Primary Care Provider] - 1-2 days Winston Xiong DO [Medical Doctor] - 1-2 days Jamison Chong MD [Medical Doctor] - 1-2 days Time of Disposition: 01:16
[2024-03-30] MEDS: KETOROLAC 15 MG/ML 1 ML VIAL IVP STA (23:53)
[2024-03-30 23:56] LABS: Basophils % (A) 1 %; Eosinophils # (A) 0.3 k/uL (0-0.7); Eosinophils % (A) 6 %; HCT 42.8 % (39.0-53.0); HGB 14.1 gm/dL (13.0-17.5); Lymphocytes # (A) 1.9 k/uL (1.0-4.8); Lymphocytes % (A) 34 %; MCH 31.1 pg (25.0-35.0); MCHC 32.8 g/dL (31.0-37.0); MCV 94.6 fL (80.0-100.0); Mean Platelet Volume 7.6; Monocytes # (A) 0.4 k/uL (0-1.0); Monocytes % (A) 7 %; Neutrophils # (A) 2.7 k/uL (1.3-7.7); Neutrophils % (A) 49 %; Platelet Count 234 k/uL (150-450); RBC 4.53 m/uL (4.30-5.90); WBC 5.4 k/uL (3.8-10.6)
[2024-03-31 00:11] LABS: ALT 14 U/L (4-49); AST 22 U/L (17-59); African American GFR (CKD) >90 (>60 ml/min/1.73 sqM); Alkaline Phosphatase 55 U/L (38-126); Anion Gap 2 mmol/L; Blood Urea Nitrogen 22 mg/dL (9-20); Calcium 9.5 mg/dL (8.4-10.2); Carbon Dioxide 28 mmol/L (22-30); Chloride 107 mmol/L (98-107); Glucose 93 mg/dL (74-99); Non-African American GFR(CKD) >90 (>60 ml/min/1.73 sqM); Potassium 4.8 mmol/L (3.5-5.1); Sodium 137 mmol/L (137-145); Total Bilirubin 0.4 mg/dL (0.2-1.3)
[2024-03-31 00:13] LABS: Appearance,Urine Clear (Clear); Bilirubin,Urine Negative (Negative); Blood,Urine Negative (Negative); Color,Urine Colorless; Glucose,Urine (UA) Negative (Negative); Ketones,Urine Negative (Negative); Leukocyte Esterase,Urine Negative (Negative); Nitrite,Urine Negative (Negative); Protein,Urine Negative (Negative); Specific Gravity,Urine 1.012 (1.001-1.035); Urobilinogen,Urine <2.0 mg/dL (<2.0)
--- NOTE | 2024-03-31 00:29 | CT ---
EXAMINATION TYPE: CT abdomen pelvis w con DATE OF EXAM: 03/31/2024 COMPARISON: Prior CT April 01, 2019 HISTORY: Pt presents with left inguinal edema and pain. R inguinal hernia repair, L arm benign tumor excision. CT DLP: 607 mGycm, Automated Exposure Control for Dose Reduction was Utilized. CONTRAST: CT scan of the abdomen and pelvis is performed without oral and with IV Contrast, patient injected wi th 100 mL mL of Isovue 300. FINDINGS: LUNG BASES: No significant abnormality is appreciated. LIVER/GB: No significant abnormality is appreciated. PANCREAS: No significant abnormality is seen. SPLEEN: No significant abnormality is seen. ADRENALS: No significant abnormality is seen. KIDNEYS: Mild to moderately distended bladder. There is 4 mm nonobstructing calculus right kidney daria ge 32 and 3 mm nonobstructing calculus left kidney coronal image 53 BOWEL: Evaluation bowel suboptimal due to lack of enteric contrast and patient having little internal fat. There is no suspicious small or large bowel dilatation. PROSTATE/SEMINAL VESICLES: Calcifications in the normal size left aspect of prostate gland are redemo nstrated. LYMPH NODES: No greater than 1cm abdominal or pelvic lymph nodes are appreciated. OSSEOUS STRUCTURES: Multilevel spondylolisthesis and disc space narrowing in the lumbar spine is rede monstrated. OTHER: There is small to moderate sized left inguinal hernia containing ill-defined fluid. Mild free fluid in the pelvis axial image 65. Moderate peripheral plaque of the infrarenal abdominal aorta. IMPRESSION: There is [id number] sized left inguinal hernia containing ill-defined fluid. Small amount of free fluid in the pelvis is noted. No bowel obstruction. [facility], , 03/31/2024 12:27 AM
[2024-03-31] MEDS: HYDROmorphone 0.5 MG/0.5 ML SYRINGE IVP STA (01:20)
[2024-03-31 01:26] VITALS: BP 150/90; PULSE 80
== END 2024-03-31 01:32 | disposition home or self-care (01) ==
LOC: EC 23:00
DX: K40.90 Unilateral inguinal hernia, without obstruction or gangrene, not specified as recurrent (principal); F17.200 Nicotine dependence, unspecified, uncomplicated; Z88.8 Allergy status to other drugs, medicaments and biological substances
CPT/HCPCS: 36415; 80053; 83605; 85025; 99284; 96374; 96375; J1885; 74177; 81003

== ENCOUNTER 2024-04-23 21:22 | Emergency (ER) | payer MEDICARE, OTHER ==
[2024-04-23 21:45] LABS: Basophils % (A) 0 %; Eosinophils % (A) 4 %; HCT 39.1 % (39.0-53.0); HGB 13.3 gm/dL (13.0-17.5); Lymphocytes # (A) 2.1 k/uL (1.0-4.8); Lymphocytes % (A) 32 %; MCH 31.4 pg (25.0-35.0); MCHC 33.9 g/dL (31.0-37.0); MCV 92.4 fL (80.0-100.0); Mean Platelet Volume 7.9; Monocytes % (A) 5 %; Neutrophils # (A) 3.8 k/uL (1.3-7.7); Neutrophils % (A) 57 %; Platelet Count 264 k/uL (150-450); RBC 4.23 m/uL (4.30-5.90); WBC 6.7 k/uL (3.8-10.6)
[2024-04-23 21:46] LABS: Eosinophils # (A) 0.3 k/uL (0-0.7); Monocytes # (A) 0.3 k/uL (0-1.0)
[2024-04-23 21:54] LABS: Partial Thromboplastin Time 24.1 sec (22.0-30.0); Prothrombin Time 11.4 sec (10.0-12.5)
[2024-04-23] MEDS: HYDROmorphone 1 MG/ML 1 ML SYRINGE IVP STA (21:57)
[2024-04-23] MEDS: ONDANSETRON 4 MG/2 ML VIAL IVP STA (21:58)
[2024-04-23] MEDS: PANTOPRAZOLE 40 MG/10 ML VIAL IVP STA (22:02)
[2024-04-23] MEDS: SODIUM CHLORIDE 0.9% 1,000 ML IV STA (22:03)
[2024-04-23 22:06] LABS: ALT 12 U/L (4-49); AST 19 U/L (17-59); African American GFR (CKD) >90 (>60 ml/min/1.73 sqM); Albumin 4.2 g/dL (3.5-5.0); Alkaline Phosphatase 51 U/L (38-126); Amylase 53 U/L (30-110); Anion Gap 8 mmol/L; Blood Urea Nitrogen 19 mg/dL (9-20); Calcium 9.5 mg/dL (8.4-10.2); Carbon Dioxide 24 mmol/L (22-30); Chloride 108 mmol/L (98-107); Glucose 111 mg/dL (74-99); Lipase 197 U/L (23-300); Non-African American GFR(CKD) >90 (>60 ml/min/1.73 sqM); Sodium 140 mmol/L (137-145); Total Bilirubin 0.2 mg/dL (0.2-1.3); Total Protein 6.9 g/dL (6.3-8.2)
--- NOTE | 2024-04-23 22:27 | ED ---
General Adult HPI - General Chief complaint: Abdominal Pain Stated complaint: Abd pain Time Seen by Provider: 04/23/24 21:22 Source: patient, EMS, RN notes reviewed, old records reviewed Mode of arrival: EMS Limitations: no limitations - History of Present Illness Initial comments: Patient is a 58-year-old male who presents emergency department complaining of left inguinal hernia pain. Has had a left inguinal hernia for 3 months. Was riding his bike and got worse today. Was supposed to follow-up with his surgeon Dr. Ramirez yesterday for evaluation of the hernia but he did not make the appointment. He states the pain was severe today. No obvious trauma. States it radiates all around the left inguinal region. Denies any urinary complaints, constipation, diarrhea, nausea, vomiting. Presents with EMS for further evaluation. Denies chest pain or shortness of breath. Does have a history of hernia repairs in the past. - Related Data Home Medications Medication Instructions Recorded Confirmed Ibuprofen [Motrin Ib] 800 mg PO Q8H PRN 11/15/20 06/21/21 Aspirin EC [Ecotrin] 325 mg PO Q8H PRN 06/21/21 06/21/21 traMADol HCL 50 mg PO QID PRN 06/21/21 06/21/21 Previous Rx's Medication Instructions Recorded Azithromycin [Zithromax Z Pack] 1 tab PO DIRECTED #6 tab 01/10/22 Allergies Allergy/AdvReac Type Severity Reaction Status Date / Time buspirone [From BuSpar] AdvReac Anaphylaxis Verified 03/30/24 23:08 diphenhydramine HCl AdvReac Rapid Verified 03/30/24 23:08 [From Benadryl] Heart Rate muscle relaxers AdvReac Unknown Uncoded 03/30/24 23:08 Review of Systems ROS Statement: Those systems with pertinent positive or pertinent negative responses have been documented in the HPI. Review of Systems: CONST: Denies fever EYES: Denies blurry vision ENT: Denies nasal congestion C/V: Denies Chest pain RESP: Denies shortness of breath GI: Endorses abdominal pain : Denies dysuria SKIN: Denies rash. MSK: Denies joint pain. NEURO: Denies headache ROS Other: All systems not noted in ROS Statement are negative. Past Medical History Past Medical History: Osteoarthritis (OA), Pneumonia, Seizure Disorder Additional Past Medical History / Comment(s): epilepsy, chronic back/neck pain, hepatitis C,A and Hep B History of Any Multi-Drug Resistant Organisms: None Reported Past Surgical History: Hernia Repair Additional Past Surgical History / Comment(s): R inguinal hernia repair, L arm benign tumor excision. Past Anesthesia/Blood Transfusion Reactions: No Reported Reaction Past Psychological History: Anxiety, Depression Smoking Status: Current every day smoker Past Alcohol Use History: None Reported Past Drug Use History: Marijuana - Past Family History Father Family Medical History: Cancer Additional Family Medical History / Comment(s): lung/liver cancer. He is . Mother Family Medical History: Cancer Additional Family Medical History / Comment(s): Mother of lung cancer. She was a smoker. General Exam - General Exam Comments Initial Comments: General: Appears in moderate distress secondary to hernia pain. HEAD: Normal with no signs of head trauma. EYES: EOMI ENT: Hearing grossly intact, normal oropharynx. RESPIRATORY: Clear breath sounds bilaterally. No wheezes, rales, or rhonchi. C/V: Regular rate and rhythm. S1 and S2 auscultated, pulses 2+ and intact throughout ABD: Abd is soft, nontender, nondistended. Patient has a palpable left inguinal hernia. Appears to be fluid-filled. Not easily reducible at this time however patient is guarding due to the pain. No obvious abdominal tenderness to palpation. No rebound tenderness or guarding of the abdomen. No skin changes over top of the hernia. EXT: Normal range of motion, no obvious deformity SKIN: No rashes or lesions observed on exposed skin. NEURO: Alert and oriented x 4. Limitations: no limitations Course Vital Signs 04/23/24 21:44 Pulse Rate 72 Respiratory 18 Rate Blood Pressure 181/102 O2 Sat by Pulse 97 Oximetry Medical Decision Making - Medical Decision Making Was pt. sent in by a medical professional or institution (, PA, TECHNOLOGY SOLUTIONS ARCHITECT, urgent care, hospital, or prison...) When possible be specific @ -No Did you speak to anyone other than the patient for history (EMS, parent, family, police, friend...)? What history was obtained from this source @ -No Did you review nursing and triage notes (agree or disagree)? Why? @ -I reviewed and agree with nursing and triage notes Were old charts reviewed (outside hosp., previous admission, EMS record, old EKG, old radiological studies, urgent care reports/EKG's, prison records)? Report findings @ -Charts reviewed including that patient was post to follow-up with Dr. Tavarez yesterday but he did not. CT imaging obtained March 30, 2024 reveals filled inguinal hernia. Differential Diagnosis (chest pain, altered mental status, abdominal pain women, abdominal pain men, vaginal bleeding, weakness, fever, dyspnea, syncope, headache, dizziness, GI bleed, back pain, seizure, CVA, palpatations, mental health, musculoskeletal)? @ -Differential Abdominal Pain Men: Appendicitis, cholecystitis, diverticulosis, ischemic bowel, pancreatitis, hepatitis, UTI, gastroenteritis, AAA, incarcerated hernia, bowel obstruction, constipation, inflammatory bowel, hepatitis, peptic ulcer disease, splenic infarction, perforated viscus, testicular torsion, this is not meant to be an all-inclusive list EKG interpreted by me (3pts min.). @ -None done X-rays interpreted by me (1pt min.). @ -None done CT interpreted by me (1pt min.). @ -CT imaging revealed no obvious inguinal hernia, as it has since reduced. U/S interpreted by me (1pt. min.). @ -None done What testing was considered but not performed or refused? (CT, X-rays, U/S, labs)? Why? @ -None What meds were considered but not given or refused? Why? @ -None Did you discuss the management of the patient with other professionals (professionals i.e. , PA, TECHNOLOGY SOLUTIONS ARCHITECT, lab, RT, psych nurse, social service assistant, auditing coder, teacher, freedom of information officer, nurse case management)? Give summary @ -No Was smoking cessation discussed for >3mins.? @ -No Was critical care preformed (if so, how long)? @ -No Were there social determinants of health that impacted care today? How? (Homelessness, low income, unemployed, alcoholism, drug addiction, transportation, low edu. Level, literacy, decrease access to med. care, [facility], rehab)? @ -No Was there de-escalation of care discussed even if they declined (Discuss DNR or withdrawal of care, Hospice)? DNR status @ -No What co-morbidities impacted this encounter? (DM, HTN, Smoking, COPD, CAD, Cancer, CVA, ARF, Chemo, Hep., AIDS, mental health diagnosis, sleep apnea, morbid obesity)? @ -None Was patient admitted / discharged? Hospital course, mention meds given and route, prescriptions, significant lab abnormalities, going to OR and other pertinent info. @ -Patient presents with left inguinal hernia pain. We will obtain abdominal laboratory studies, as well as CT of the abdomen pelvis. Patient be sympto matically treated with IV fluids, Dilaudid, Zofran, Protonix. Vital signs are within acceptable limits. I did reevaluate the patient following administration of Dilaudid and that was inverted. The hernia spontaneously reduced itself. Patient has no tenderness at this time. Will continue with workup.Disease returned within acceptable limits including lactic acid within normal limits. CT imaging revealed no obvious inguinal hernia, as it has since reduced. I discussed results with patient. Patient be discharged home at this time with follow-up with Dr. Tavarez. He was in agreement this plan. Undiagnosed new problem with uncertain prognosis? @ -No Drug Therapy requiring intensive monitoring for toxicity (Heparin, Nitro, Insulin, Cardizem)? @ -No Were any procedures done? @ -No Diagnosis/symptom? @ -Reducible left inguinal hernia Acute, or Chronic, or Acute on Chronic? @ -Acute Uncomplicated (without systemic symptoms) or Complicated (systemic symptoms)? @ -Uncomplicated Side effects of treatment? @ -None Exacerbation, Progression, or Severe Exacerbation] @ -No Poses a threat to life or bodily function? @ -Unlikely at this time - Lab Data Result diagrams: 04/23/24 21:38 04/23/24 21:38 Lab Results 04/23/24 04/23/24 04/23/24 Range/Units 21:38 21:38 21:38 WBC 6.7 (3.8-10.6) k/uL RBC 4.23 L (4.30-5.90) m/uL Hgb 13.3 (13.0-17.5) gm/dL Hct 39.1 (39.0-53.0) % MCV 92.4 (80.0-100.0) fL MCH 31.4 (25.0-35.0) pg MCHC 33.9 (31.0-37.0) g/dL RDW 13.0 (11.5-15.5) % Plt Count 264 (150-450) k/uL MPV 7.9 Neutrophils % 57 % Lymphocytes % 32 % Monocytes % 5 % Eosinophils % 4 % Basophils % 0 % Neutrophils # 3.8 (1.3-7.7) k/uL Lymphocytes # 2.1 (1.0-4.8) k/uL Monocytes # 0.3 (0-1.0) k/uL Eosinophils # 0.3 (0-0.7) k/uL Basophils # 0.0 (0-0.2) k/uL PT 11.4 (10.0-12.5) sec INR 1.0 (<1.2) APTT 24.1 (22.0-30.0) sec Sodium 140 (137-145) mmol/L Potassium 4.0 (3.5-5.1) mmol/L Chloride 108 H (98-107) mmol/L Carbon Dioxide 24 (22-30) mmol/L Anion Gap 8 mmol/L BUN 19 (9-20) mg/dL Creatinine 0.81 (0.66-1.25) mg/dL Est GFR (CKD-EPI)AfAm >90 (>60 ml/min/1.73 sqM) Est GFR (CKD-EPI)NonAf >90 (>60 ml/min/1.73 sqM) Glucose 111 H (74-99) mg/dL Plasma Lactic Acid Juan M (0.7-2.0) mmol/L Calcium 9.5 (8.4-10.2) mg/dL Total Bilirubin 0.2 (0.2-1.3) mg/dL AST 19 (17-59) U/L ALT 12 (4-49) U/L Alkaline Phosphatase 51 (38-126) U/L Total Protein 6.9 (6.3-8.2) g/dL Albumin 4.2 (3.5-5.0) g/dL Amylase 53 (30-110) U/L Lipase 197 (23-300) U/L Urine Color Urine Appearance (Clear) Urine pH (5.0-8.0) Ur Specific [place] (1.001-1.035) Urine Protein (Negative) Urine Glucose (UA) (Negative) Urine Ketones (Negative) Urine Blood (Negative) Urine Nitrite (Negative) Urine Bilirubin (Negative) Urine Urobilinogen (<2.0) mg/dL Ur Leukocyte Esterase (Negative) Blood Type Recheck Bld Type Recheck Status 04/23/24 04/23/24 04/23/24 Range/Units 21:38 22:25 22:54 WBC (3.8-10.6) k/uL RBC (4.30-5.90) m/uL Hgb (13.0-17.5) gm/dL Hct (39.0-53.0) % MCV (80.0-100.0) fL MCH (25.0-35.0) pg MCHC (31.0-37.0) g/dL RDW (11.5-15.5) % Plt Count (150-450) k/uL MPV Neutrophils % % Lymphocytes % % Monocytes % % Eosinophils % % Basophils % % Neutrophils # (1.3-7.7) k/uL Lymphocytes # (1.0-4.8) k/uL Monocytes # (0-1.0) k/uL Eosinophils # (0-0.7) k/uL Basophils # (0-0.2) k/uL PT (10.0-12.5) sec INR (<1.2) APTT (22.0-30.0) sec Sodium (137-145) mmol/L Potassium (3.5-5.1) mmol/L Chloride (98-107) mmol/L Carbon Dioxide (22-30) mmol/L Anion Gap mmol/L BUN (9-20) mg/dL Creatinine (0.66-1.25) mg/dL Est GFR (CKD-EPI)AfAm (>60 ml/min/1.73 sqM) Est GFR (CKD-EPI)NonAf (>60 ml/min/1.73 sqM) Glucose (74-99) mg/dL Plasma Lactic Acid Juan M 1.6 (0.7-2.0) mmol/L Calcium (8.4-10.2) mg/dL Total Bilirubin (0.2-1.3) mg/dL AST (17-59) U/L ALT (4-49) U/L Alkaline Phosphatase (38-126) U/L Total Protein (6.3-8.2) g/dL Albumin (3.5-5.0) g/dL Amylase (30-110) U/L Lipase (23-300) U/L Urine Color Colorless Urine Appearance Clear (Clear) Urine pH 6.0 (5.0-8.0) Ur Specific [place] 1.014 (1.001-1.035) Urine Protein Negative (Negative) Urine Glucose (UA) Negative (Negative) Urine Ketones Negative (Negative) Urine Blood Negative (Negative) Urine Nitrite Negative (Negative) Urine Bilirubin Negative (Negative) Urine Urobilinogen <2.0 (<2.0) mg/dL Ur Leukocyte Esterase Negative (Negative) Blood Type Recheck No Previous Record Bld Type Recheck Status CABO Indicated Disposition Clinical Impression: Inguinal hernia Disposition: HOME SELF-CARE Condition: Good Instructions (If sedation given, give patient instructions): Inguinal Hernia (ED) Additional Instructions: Follow-up with your surgeon, Dr. Tavarez in 1-3 days for further evaluation of your hernia. Return if any worsening symptoms. Is patient prescribed a controlled substance at d/c from ED?: Yes When asked, does pt state using other controlled substances?: No If prescribed controlled substance>3 days was MAPS reviewed?: Prescribed <3 Days If opioid is for acute pain is fill amount 7 days or less?: Yes If Rx opioid, was Start Talking consent form obtained?: Yes Referrals: None,Stated [Primary Care Provider] - 1-2 days Carlos Tavarez MD [STAFF PHYSICIAN] - 1-2 days Time of Disposition: 23:33
[2024-04-23 23:24] LABS: Appearance,Urine Clear (Clear); Bilirubin,Urine Negative (Negative); Blood,Urine Negative (Negative); Color,Urine Colorless; Glucose,Urine (UA) Negative (Negative); Ketones,Urine Negative (Negative); Leukocyte Esterase,Urine Negative (Negative); Nitrite,Urine Negative (Negative); Protein,Urine Negative (Negative); Specific Gravity,Urine 1.014 (1.001-1.035); Urobilinogen,Urine <2.0 mg/dL (<2.0)
[2024-04-24] MEDS: ACET/COD 300 MG/30 MG STARTER PACK 6 TAB BTL PO STA ×2 (00:09)
[2024-04-24 00:19] VITALS: BP 176/94; PULSE 94; RESP 16
--- NOTE | 2024-04-24 00:20 | CT ---
EXAM: CT Abdomen and Pelvis With Intravenous Contrast CLINICAL HISTORY: Left inguinal hernia pain. TECHNIQUE: Axial computed tomography images of the abdomen and pelvis with intravenous contrast. CTDI is 12.1 mGy and DLP is 600.9 mGy-cm. This CT exam was performed using one or more of the following dose reduction techniques: automated exposure control, adjustment of the mA and/or kV according to patient size, and/or use of iterative reconstruction technique. COMPARISON: CT 04/01/2019 FINDINGS: ABDOMEN: Liver: Unremarkable. Gallbladder and bile ducts: Unremarkable. Pancreas: Unremarkable. Spleen: Unremarkable. Adrenals: Unremarkable. Kidneys and ureters: No ureteral stone or hydronephrosis. Extrarenal pelves. Stomach and bowel: Unremarkable. PELVIS: Appendix: No findings to suggest acute appendicitis. Bladder: Unremarkable. Reproductive: Unremarkable as visualized. ABDOMEN and PELVIS: Intraperitoneal space: Unremarkable. No free air. No significant fluid collection. Bones/joints: Multilevel degenerative spondylosis. No acute fracture. Soft tissues: No inguinal hernia. No acute abnormality. Vasculature: Unremarkable. Lymph nodes: Unremarkable. IMPRESSION: No inguinal hernia. No acute findings in the abdomen or pelvis.
== END 2024-04-24 00:19 | disposition home or self-care (01) ==
LOC: EC 21:22
DX: K40.90 Unilateral inguinal hernia, without obstruction or gangrene, not specified as recurrent (principal); F17.200 Nicotine dependence, unspecified, uncomplicated; Z88.8 Allergy status to other drugs, medicaments and biological substances
CPT/HCPCS: 36415; 86900; 86901; 80053; 82150; 83605; 83690; 85025; 85610; 85730; 86850; 81003; 74177; 99284; 96374; 96375 ×2; 96361; J2405; J1171; Q9967; J2470

== ENCOUNTER 2024-05-07 10:33 | Emergency (ER) | payer MEDICARE, OTHER ==
[2024-05-07 11:22] VITALS: RESP 18
--- NOTE | 2024-05-07 11:47 | ED ---
Abdominal Pain HPI - General Source: patient, RN notes reviewed Mode of arrival: wheelchair - History of Present Illness MD Complaint: abdominal pain Onset/Timin -: hour(s) <DeborahAlfredo - Last Filed: 05/07/24 11:44> - General Source: patient, RN notes reviewed Mode of arrival: wheelchair Limitations: no limitations <Tejas Gray - Last Filed: 05/07/24 14:08> - General Chief Complaint: Abdominal Pain Stated Complaint: abd pain Time Seen by Provider: 05/07/24 10:49 - History of Present Illness Initial Comments: Quick note: This is a 58-year-old male with history of seizure and inguinal hernia presenting with lower abdominal pain (02/13) since 10 PM last night. Patient describes pain as "twisting" with associated nausea/vomiting. Patient notes increased recurrent swelling in his left lower pelvic region since the onset of pain. States oral intake worsens pain. (Alfredo Cabrera) 58-year-old male presents emergency department chief complaint of abdominal pain. Patient has a known inguinal hernia states that it causes pain every once in a while he missed his surgery date earlier this month with Dr. Tavarez. He states he is getting his new appointment tomorrow for his surgery date. Patient states that it does go in and out and causes pain but he has pain into his scrotum. Patient denies any change in bowel habits. (Tejas Gray) - Related Data Home Medications Medication Instructions Recorded Confirmed Ibuprofen [Motrin Ib] 800 mg PO Q8H PRN 11/15/20 06/21/21 Aspirin EC [Ecotrin] 325 mg PO Q8H PRN 06/21/21 06/21/21 traMADol HCL 50 mg PO QID PRN 06/21/21 06/21/21 Previous Rx's Medication Instructions Recorded Azithromycin [Zithromax Z Pack] 1 tab PO DIRECTED #6 tab 01/10/22 Allergies Allergy/AdvReac Type Severity Reaction Status Date / Time buspirone [From BuSpar] AdvReac Anaphylaxis Verified 05/07/24 11:22 diphenhydramine HCl AdvReac Rapid Verified 05/07/24 11:22 [From Benadryl] Heart Rate muscle relaxers AdvReac Unknown Uncoded 05/07/24 11:22 Review of Systems ROS Other: All systems not noted in ROS Statement are negative. <Alfredo Cabrera - Last Filed: 05/07/24 11:44> ROS Other: All systems not noted in ROS Statement are negative. <Tejas Gray Dimitrios - Last Filed: 05/07/24 14:08> ROS Statement: Those systems with pertinent positive or pertinent negative responses have been documented in the HPI. Past Medical History Past Medical History: Osteoarthritis (OA), Pneumonia, Seizure Disorder Additional Past Medical History / Comment(s): epilepsy, chronic back/neck pain, hepatitis C,A and Hep B History of Any Multi-Drug Resistant Organisms: None Reported Past Surgical History: Hernia Repair Additional Past Surgical History / Comment(s): R inguinal hernia repair, L arm benign tumor excision. Past Anesthesia/Blood Transfusion Reactions: No Reported Reaction Past Psychological History: Anxiety, Depression Smoking Status: Former smoker, Vaper Past Alcohol Use History: None Reported Past Drug Use History: Marijuana - Past Family History Father Family Medical History: Cancer Additional Family Medical History / Comment(s): lung/liver cancer. He is . Mother Family Medical History: Cancer Additional Family Medical History / Comment(s): Mother of lung cancer. She was a smoker. <Alfredo Cabrera - Last Filed: 05/07/24 11:44> General Exam <Alfredo Cabrera Filed: 05/07/24 11:44> Limitations: no limitations General appearance: alert, in no apparent distress Head exam: Present: atraumatic, normocephalic, normal inspection Eye exam: Present: normal appearance, PERRL, EOMI. Absent: scleral icterus, con junctival injection, periorbital swelling ENT exam: Present: normal exam, normal oropharynx, mucous membranes moist Neck exam: Present: normal inspection, full ROM. Absent: tenderness, meningismus, lymphadenopathy Respiratory exam: Present: normal lung sounds bilaterally. Absent: respiratory distress, wheezes, rales, rhonchi, stridor Cardiovascular Exam: Present: regular rate, normal rhythm, normal heart sounds. Absent: systolic murmur, diastolic murmur, rubs, gallop, clicks GI/Abdominal exam: Present: soft, normal bowel sounds, hernia (Left inguinal hernia easily reducible, nontender). Absent: distended, tenderness, guarding, rebound, rigid <Tejas Gray - Last Filed: 05/07/24 14:08> - General Exam Comments Initial Comments: Visual Physical Exam Vital signs reviewed General: Well-appearing, nontoxic, no acute distress. Patient seated in wheelchair Head: Normocephalic, atraumatic Eyes: PERRLA, EOMI ENT: Airway patent Chest: Nonlabored breathing Skin: No visual rash, normal skin tone Neuro: Alert and oriented 3 Musculoskeletal: No gross abnormalities (Alfredo Cabrera) Course Vital Signs 05/07/24 05/07/24 11:18 13:32 Temperature 97.9 F 98.0 F Pulse Rate 63 70 Respiratory 18 18 Rate Blood Pressure 166/89 157/82 O2 Sat by Pulse 99 98 Oximetry Medical Decision Making <Alfredo Cabrera - Last Filed: 05/07/24 11:44> - Lab Data Result diagrams: 05/07/24 11:59 05/07/24 11:59 <Tejas Gray - Last Filed: 05/07/24 14:08> - Medical Decision Making I completed the quick note portion of this chart signed NIKKI Mullins (Alfredo Cabrera) Was pt. sent in by a medical professional or institution (YOSSI Santizo, FLOOR CARE SPECIALIST, urgent care, hospital, or [place] health care facility...) When possible be specific @ -No Did you speak to anyone other than the patient for history (EMS, parent, family, police, friend...)? What history was obtained from this source @ -No Did you review nursing and triage notes (agree or disagree)? Why? @ -I reviewed and agree with nursing and triage notes Were old charts reviewed (outside hosp., previous admission, EMS record, old EKG, old radiological studies, urgent care reports/EKG's, [place] health care facility records)? Report findings @ -[Review recent CT, evaluations Differential Diagnosis (chest pain, altered mental status, abdominal pain women, abdominal pain men, vaginal bleeding, weakness, fever, dyspnea, syncope, headache, dizziness, GI bleed, back pain, seizure, CVA, palpatations, mental health, musculoskeletal)? @ -Differential Abdominal Pain Men: Appendicitis, cholecystitis, diverticulosis, ischemic bowel, pancreatitis, hepatitis, UTI, gastroenteritis, AAA, incarcerated hernia, bowel obstruction, constipation, inflammatory bowel, hepatitis, peptic ulcer disease, splenic infarction, perforated viscus, testicular torsion, this is not meant to be an all-inclusive list EKG interpreted by me (3pts min.). @ -None X-rays interpreted by me (1pt min.). @ -None done CT interpreted by me (1pt min.). @ -None done U/S interpreted by me (1pt. min.). @ -Ultrasound scrotum showing no acute process What testing was considered but not performed or refused? (CT, X-rays, U/S, labs)? Why? @ -None What meds were considered but not given or refused? Why? @ -None Did you discuss the management of the patient with other professionals (professionals i.e. , PA, FLOOR CARE SPECIALIST, lab, RT, psych nurse, social media marketing specialist, authorization coordinator, teacher, international first officer, special education case manager)? Give summary @ -No Was smoking cessation discussed for >3mins.? @ -No Was critical care preformed (if so, how long)? @ -No Were there social determinants of health that impacted care today? How? (Homelessness, low income, unemployed, alcoholism, drug addiction, t ransportation, low edu. Level, literacy, decrease access to med. care, fdc, rehab)? @ -No Was there de-escalation of care discussed even if they declined (Discuss DNR or withdrawal of care, Hospice)? DNR status @ -No What co-morbidities impacted this encounter? (DM, HTN, Smoking, COPD, CAD, Cancer, CVA, ARF, Chemo, Hep., AIDS, mental health diagnosis, sleep apnea, morbid obesity)? @ -None Was patient admitted / discharged? Hospital course, mention meds given and route, prescriptions, significant lab abnormalities, going to OR and other pertinent info. @ -Discharge patient has a inguinal hernia reducible he has an appointment tomorrow with surgeon return parameters discussed. Undiagnosed new problem with uncertain prognosis? @ -No Drug Therapy requiring intensive monitoring for toxicity (Heparin, Nitro, Insulin, Cardizem)? @ -No Were any procedures done? @ -No Diagnosis/symptom? @ -Inguinal hernia Acute, or Chronic, or Acute on Chronic? @ -Acute Uncomplicated (without systemic symptoms) or Complicated (systemic symptoms)? @ -Uncomplicated Side effects of treatment? @ -No Exacerbation, Progression, or Severe Exacerbation? @ -No Poses a threat to life or bodily function? How? (Chest pain, [place], [place], pneumonia, PE, COPD, DKA, ARF, appy, cholecystitis, CVA, Diverticulitis, Homicidal, S uicidal, threat to staff... and all critical care pts) @ -No (Tejas Gray) - Lab Data Lab Results 05/07/24 05/07/24 05/07/24 Range/Units 11:59 11:59 11:59 WBC 5.9 (3.8-10.6) k/uL RBC 4.10 L (4.30-5.90) m/uL Hgb 12.9 L (13.0-17.5) gm/dL Hct 38.6 L (39.0-53.0) % MCV 94.1 (80.0-100.0) fL MCH 31.5 (25.0-35.0) pg MCHC 33.5 (31.0-37.0) g/dL RDW 13.5 (11.5-15.5) % Plt Count 256 (150-450) k/uL MPV 8.0 Neutrophils % 65 % Lymphocytes % 22 % Monocytes % 8 % Eosinophils % 3 % Basophils % 0 % Neutrophils # 3.9 (1.3-7.7) k/uL Lymphocytes # 1.3 (1.0-4.8) k/uL Monocytes # 0.4 (0-1.0) k/uL Eosinophils # 0.2 (0-0.7) k/uL Basophils # 0.0 (0-0.2) k/uL Sodium 137 (137-145) mmol/L Potassium 4.7 (3.5-5.1) mmol/L Chloride 104 (98-107) mmol/L Carbon Dioxide 28 (22-30) mmol/L Anion Gap 5 mmol/L BUN 17 (9-20) mg/dL Creatinine 0.81 (0.66-1.25) mg/dL Est GFR (CKD-EPI)AfAm >90 (>60 ml/min/1.73 sqM) Est GFR (CKD-EPI)NonAf >90 (>60 ml/min/1.73 sqM) Glucose 90 (74-99) mg/dL Plasma Lactic Acid Juan M 0.9 (0.7-2.0) mmol/L Calcium 9.4 (8.4-10.2) mg/dL Total Bilirubin 0.2 (0.2-1.3) mg/dL AST 25 (17-59) U/L ALT 15 (4-49) U/L Alkaline Phosphatase 49 (38-126) U/L Total Protein 7.1 (6.3-8.2) g/dL Albumin 4.3 (3.5-5.0) g/dL Amylase 59 (30-110) U/L Lipase 119 (23-300) U/L Urine Color Urine Appearance (Clear) Urine pH (5.0-8.0) Ur Specific [place] (1.001-1.035) Urine Protein (Negative) Urine Glucose (UA) (Negative) Urine Ketones (Negative) Urine Blood (Negative) Urine Nitrite (Negative) Urine Bilirubin (Negative) Urine Urobilinogen (<2.0) mg/dL Ur Leukocyte Esterase (Negative) 05/07/24 Range/Units 12:01 WBC (3.8-10.6) k/uL RBC (4.30-5.90) m/uL Hgb (13.0-17.5) gm/dL Hct (39.0-53.0) % MCV (80.0-100.0) fL MCH (25.0-35.0) pg MCHC (31.0-37.0) g/dL RDW (11.5-15.5) % Plt Count (150-450) k/uL MPV Neutrophils % % Lymphocytes % % Monocytes % % Eosinophils % % Basophils % % Neutrophils # (1.3-7.7) k/uL Lymphocytes # (1.0-4.8) k/uL Monocytes # (0-1.0) k/uL Eosinophils # (0-0.7) k/uL Basophils # (0-0.2) k/uL Sodium (137-145) mmol/L Potassium (3.5-5.1) mmol/L Chloride (98-107) mmol/L Carbon Dioxide (22-30) mmol/L Anion Gap mmol/L BUN (9-20) mg/dL Creatinine (0.66-1.25) mg/dL Est GFR (CKD-EPI)AfAm (>60 ml/min/1.73 sqM) Est GFR (CKD-EPI)NonAf (>60 ml/min/1.73 sqM) Glucose (74-99) mg/dL Plasma Lactic Acid Juan M (0.7-2.0) mmol/L Calcium (8.4-10.2) mg/dL Total Bilirubin (0.2-1.3) mg/dL AST (17-59) U/L ALT (4-49) U/L Alkaline Phosphatase (38-126) U/L Total Protein (6.3-8.2) g/dL Albumin (3.5-5.0) g/dL Amylase (30-110) U/L Lipase (23-300) U/L Urine Color Light Yellow Urine Appearance Clear (Clear) Urine pH 7.5 (5.0-8.0) Ur Specific [place] 1.023 (1.001-1.035) Urine Protein Trace H (Negative) Urine Glucose (UA) Negative (Negative) Urine Ketones Negative (Negative) Urine Blood Negative (Negative) Urine Nitrite Negative (Negative) Urine Bilirubin Negative (Negative) Urine Urobilinogen <2.0 (<2.0) mg/dL Ur Leukocyte Esterase Negative (Negative) Disposition <Alfredo Cabrera - Last Filed: 05/07/24 11:44> Is patient prescribed a controlled substance at d/c from ED?: No Time of Disposition: 13:23 <Tejas Gray - Last Filed: 05/07/24 14:08> Clinical Impression: Abdominal pain, Inguinal hernia Disposition: HOME SELF-CARE Condition: Stable Instructions (If sedation given, give patient instructions): Inguinal Hernia (ED) Additional Instructions: Please return to the Emergency Department if symptoms worsen or any other concerns. Referrals: None,Stated [Primary Care Provider] - 1-2 days
[2024-05-07 12:09] LABS: Basophils % (A) 0 %; Eosinophils # (A) 0.2 k/uL (0-0.7); Eosinophils % (A) 3 %; HCT 38.6 % (39.0-53.0); HGB 12.9 gm/dL (13.0-17.5); Lymphocytes # (A) 1.3 k/uL (1.0-4.8); Lymphocytes % (A) 22 %; MCH 31.5 pg (25.0-35.0); MCHC 33.5 g/dL (31.0-37.0); MCV 94.1 fL (80.0-100.0); Monocytes # (A) 0.4 k/uL (0-1.0); Monocytes % (A) 8 %; Neutrophils # (A) 3.9 k/uL (1.3-7.7); Neutrophils % (A) 65 %; Platelet Count 256 k/uL (150-450); RDW 13.5 % (11.5-15.5); WBC 5.9 k/uL (3.8-10.6)
[2024-05-07 12:16] LABS: Appearance,Urine Clear (Clear); Bilirubin,Urine Negative (Negative); Blood,Urine Negative (Negative); Color,Urine Light Yellow; Glucose,Urine (UA) Negative (Negative); Ketones,Urine Negative (Negative); Leukocyte Esterase,Urine Negative (Negative); Nitrite,Urine Negative (Negative); PH, Urine 7.5 (5.0-8.0); Protein,Urine Trace (Negative); Specific Gravity,Urine 1.023 (1.001-1.035); Urobilinogen,Urine <2.0 mg/dL (<2.0)
[2024-05-07 12:22] LABS: ALT 15 U/L (4-49); AST 25 U/L (17-59); African American GFR (CKD) >90 (>60 ml/min/1.73 sqM); Albumin 4.3 g/dL (3.5-5.0); Alkaline Phosphatase 49 U/L (38-126); Amylase 59 U/L (30-110); Anion Gap 5 mmol/L; Blood Urea Nitrogen 17 mg/dL (9-20); Calcium 9.4 mg/dL (8.4-10.2); Carbon Dioxide 28 mmol/L (22-30); Chloride 104 mmol/L (98-107); Glucose 90 mg/dL (74-99); Lipase 119 U/L (23-300); Non-African American GFR(CKD) >90 (>60 ml/min/1.73 sqM); Potassium 4.7 mmol/L (3.5-5.1); Sodium 137 mmol/L (137-145); Total Bilirubin 0.2 mg/dL (0.2-1.3); Total Protein 7.1 g/dL (6.3-8.2)
--- NOTE | 2024-05-07 12:39 | US ---
EXAMINATION TYPE: US scrotum with doppler. DATE OF EXAM: 05/07/2024 COMPARISON: NONE CLINICAL INDICATION: Male, 58 years old with history of pain; bilateral pain, worse on the left for 2 weeks TECHNIQUE: Grayscale, color Doppler and spectral Doppler imaging of the scrotum. FINDINGS: EXAM MEASUREMENTS: TESTICLES: Right Testicle: 5.2 x 2.3 x 3.2 cm Left Testicle: 4.5 x 2.4 x 2.7 cm EPIDIDYMIS HEAD: Right Epididymis: 1.3 cm Left Epididymis: 1.3 cm Doppler performed to assess for testicular vascularity; good bilateral color flow and spectral wavefo jennifer are seen. There is no evidence of testicular torsion. Presence of hydroceles: small fluid collection lateral to left testicle = 3.5cm Presence of varicoceles: yes, left cystic lesion bilateral epididymis = 0.5cm on the right and 0.6cm on the left IMPRESSION: 1. Bilateral epididymal cysts. 2. Left-sided varicoceles. 3. No changes to suggest torsion [facility], Workstation: [facility], 05/07/2024 12:37 PM
[2024-05-07] MEDS: KETOROLAC 15 MG/ML 1 ML VIAL IVP STA (13:16)
[2024-05-07] MEDS: ONDANSETRON 4 MG/2 ML VIAL IVP STA (13:16)
[2024-05-07] MEDS: ACET/COD 300 MG/30 MG STARTER PACK 6 TAB BTL PO STA (13:27)
[2024-05-07 13:33] VITALS: BP 157/82; PULSE 70; TEMP 98
== END 2024-05-07 13:33 | disposition home or self-care (01) ==
LOC: EC 10:33
DX: K40.90 Unilateral inguinal hernia, without obstruction or gangrene, not specified as recurrent (principal); F17.290 Nicotine dependence, other tobacco product, uncomplicated; Z88.8 Allergy status to other drugs, medicaments and biological substances
CPT/HCPCS: 36415; 80053; 82150; 83605; 83690; 85025; 81003; 93975; 76870; 99284; 96374; 96375; J2405; J1885

== ENCOUNTER 2024-05-20 10:09 | Emergency (ER) | payer MEDICARE, OTHER ==
[2024-05-20 10:18] VITALS: TEMP 98.3
--- NOTE | 2024-05-20 10:33 | ED ---
General Adult HPI - General Chief complaint: Abdominal Pain Stated complaint: FALL Time Seen by Provider: 05/20/24 10:10 Source: patient, EMS, RN notes reviewed Mode of arrival: EMS - History of Present Illness Initial comments: Patient is a 58 year old male with a past medical history of an inguinal hernia who presents for abdominal pain and left foot pain x 1.5 hours ago. He states that he was moving a "9 foot cabinet" and it fell on him and hit him on his hernia and his left big toe. He states that he did not hit his head. He states the pain in his left big toe is 10/10 and feels like a "needle", and he endorses numbness and tingling that comes and goes in the big toe. his abdominal pain is not worse then its been. He endorses nausea "from the pain". - Related Data Home Medications Medication Instructions Recorded Confirmed No Known Home Medications 05/20/24 05/20/24 Allergies Allergy/AdvReac Type Severity Reaction Status Date / Time buspirone [From BuSpar] AdvReac Anaphylaxis Verified 05/20/24 11:28 diphenhydramine HCl AdvReac Rapid Verified 05/20/24 11:28 [From Benadryl] Heart Rate muscle relaxers AdvReac Nausea & Uncoded 05/20/24 11:28 Vomiting, Agression Review of Systems ROS Statement: Those systems with pertinent positive or pertinent negative responses have been documented in the HPI. ROS Other: All systems not noted in ROS Statement are negative. Past Medical History Past Medical History: Osteoarthritis (OA), Pneumonia, Seizure Disorder Additional Past Medical History / Comment(s): epilepsy, chronic back/neck pain, hepatitis C,A and Hep B History of Any Multi-Drug Resistant Organisms: None Reported Past Surgical History: Hernia Repair Additional Past Surgical History / Comment(s): R inguinal hernia repair, L arm benign tumor excision. Past Anesthesia/Blood Transfusion Reactions: No Reported Reaction Past Psychological History: Anxiety, Depression Smoking Status: Former smoker, Vaper Past Alcohol Use History: None Reported Past Drug Use History: Marijuana - Past Family History Father Family Medical History: Cancer Additional Family Medical History / Comment(s): lung/liver cancer. He is . Mother Family Medical History: Cancer Additional Family Medical History / Comment(s): Mother of lung cancer. She was a smoker. General Exam Limitations: no limitations General appearance: alert, in no apparent distress Head exam: Present: atraumatic, normocephalic, normal inspection Eye exam: Present: normal appearance, PERRL, EOMI. Absent: scleral icterus, conjunctival injection, periorbital swelling Neck exam: Present: normal inspection. Absent: tenderness, meningismus, lymphadenopathy Respiratory exam: Present: normal lung sounds bilaterally. Absent: respiratory distress, wheezes, rales, rhonchi, stridor Cardiovascular Exam: Present: regular rate, normal rhythm, normal heart sounds. Absent: systolic murmur, diastolic murmur, rubs, gallop, clicks GI/Abdominal exam: Present: soft, normal bowel sounds, hernia. Absent: distended, tenderness, guarding, rebound, rigid Left Hip exam: Present: normal inspection, full ROM. Absent: tenderness Upper Leg exam: Present: normal inspection, full ROM. Absent: tenderness Knee exam: Present: normal inspection, full ROM. Absent: tenderness Lower Leg exam: Present: normal inspection, full ROM. Absent: tenderness Ankle exam: Present: normal inspection, full ROM. Absent: tenderness Foot/Toe exam: Present: tenderness, erythema. Absent: full ROM (big toe) Course Vital Signs 05/20/24 05/20/24 10:13 11:32 Temperature 98.3 F Pulse Rate 68 82 Respiratory 24 20 Rate Blood Pressure 179/96 179/90 O2 Sat by Pulse 100 98 Oximetry Medical Decision Making - Medical Decision Making Was pt. sent in by a medical professional or institution (, PA, DRY PLASTERER HELPER, urgent care, hospital, or penitentiary...) When possible be specific @ -No Did you speak to anyone other than the patient for history (EMS, parent, family, police, friend...)? What history was obtained from this source @ -No Did you review nursing and triage notes (agree or disagree)? Why? @ -I reviewed and agree with nursing and triage notes Were old charts reviewed (outside hosp., previous admission, EMS record, old EKG, old radiological studies, urgent care reports/EKG's, penitentiary records)? Report findings @ -No old charts were reviewed Differential Diagnosis (chest pain, altered mental status, abdominal pain women, abdominal pain men, vaginal bleeding, weakness, fever, dyspnea, syncope, headache, dizziness, GI bleed, back pain, seizure, CVA, palpatations, mental health, musculoskeletal)? @ -Foot contusion, foot fracture EKG interpreted by me (3pts min.). @ -None X-rays interpreted by me (1pt min.). @ -X-ray of the left foot shows no acute fracture CT interpreted by me (1pt min.). @ -None done U/S interpreted by me (1pt. min.). @ -None done What testing was considered but not performed or refused? (CT, X-rays, U/S, labs)? Why? @ -None What meds were considered but not given or refused? Why? @ -None Did you discuss the management of the patient with other professionals (professionals i.e. , PA, DRY PLASTERER HELPER, lab, RT, psych nurse, social security assessor, architecture technician, teacher, medical information officer, transplant case manager)? Give summary @ -No Was smoking cessation discussed for >3mins.? @ -No Was critical care preformed (if so, how long)? @ -No Were there social determinants of health that impacted care today? How? (Homelessness, low income, unemployed, alcoholism, drug addiction, transportation, low edu. Level, literacy, decrease access to med. care, usp, rehab)? @ -No Was there de-escalation of care discussed even if they declined (Discuss DNR or withdrawal of care, Hospice)? DNR status @ -No What co-morbidities impacted this encounter? (DM, HTN, Smoking, COPD, CAD, Cancer, CVA, ARF, Chemo, Hep., AIDS, mental health diagnosis, sleep apnea, morbid obesity)? @ -None Was patient admitted / discharged? Hospital course, mention meds given and route, prescriptions, significant lab abnormalities, going to OR and other pertinent info. @ -Discharged x-rays are negative. Patient is unchanged hernia patient has follow-up appointment. Return parens discussed. Undiagnosed new problem with uncertain prognosis? @ -No Drug Therapy requiring intensive monitoring for toxicity (Heparin, Nitro, Insulin, Cardizem)? @ -No Were any procedures done? @ -No Diagnosis/symptom? @ -Foot contusion, hernia Acute, or Chronic, or Acute on Chronic? @ -Acute Uncomplicated (without systemic symptoms) or Complicated (systemic symptoms)? @Uncomplicated Side effects of treatment? @ -No Exacerbation, Progression, or Severe Exacerbation? @ -No Poses a threat to life or bodily function? How? (Chest pain, [place], [place], pneumonia, PE, COPD, DKA, ARF, appy, cholecystitis, CVA, Diverticulitis, Homicidal, Suicidal, threat to staff... and all critical care pts) @ -No Disposition Clinical Impression: Foot contusion Disposition: HOME SELF-CARE Condition: Stable Instructions (If sedation given, give patient instructions): Foot Contusion (ED) Additional Instructions: Please return to the Emergency Department if symptoms worsen or any other concerns. Is patient prescribed a controlled substance at d/c from ED?: No Referrals: None,Stated [Primary Care Provider] - 1-2 days Time of Disposition: 11:25
[2024-05-20] MEDS: HYDROcodone/APAP 5-325MG 1 EACH TAB PO STA (11:12)
--- NOTE | 2024-05-20 11:18 | XR ---
EXAMINATION TYPE: XR foot complete LT DATE OF EXAM: 05/20/2024 11:07 AM COMPARISON: 11/13/2015 CLINICAL INDICATION: Male, 58 years old with history of pain; PHH, pain TECHNIQUE: XR foot complete LT examined in the AP, oblique, and lateral projections. FINDINGS: No evidence of any acute osseous pathology. Multifocal degeneration changes throughout the joints of the foot with osteophyte formation and joint space narrowing. Accessory ossicles are present. Lateral angulation of the first digit metatarsophalangeal joint. Remote injury at the base of the first and second metatarsals with calcification present. IMPRESSION: 1. No evidence of acute fracture. 2. Hallux valgus has worsened from 2016. 3. Mild degeneration changes throughout the joints of the foot. [facility], , 05/20/2024 11:15 AM
[2024-05-20 11:34] VITALS: BP 179/90; PULSE 82; RESP 20
== END 2024-05-20 11:34 | disposition home or self-care (01) ==
LOC: EC 10:09
DX: S90.32XA Contusion of left foot, initial encounter (principal); F17.290 Nicotine dependence, other tobacco product, uncomplicated; Z88.8 Allergy status to other drugs, medicaments and biological substances; W20.8XXA Other cause of strike by thrown, projected or falling object, initial encounter
CPT/HCPCS: 99284

== ENCOUNTER 2024-05-28 08:29 | Day surgery (SDC) | payer MEDICARE, OTHER ==
[2024-05-27 15:30] VITALS: BMI 19.5
[~2024-05-28 08:29] MED LIST: LIDOCAINE 1% (10MG/ML) FOR IV START INTRADERMA PRN
[2024-05-28] MEDS: IV FLUID CONTINUATION 1,000 ML IV ONE ×2 (10:29→13:26)
[2024-05-28] MEDS: LACTATED RINGERS 1,000 ML IV SCH (10:29)
[2024-05-28] MEDS: ACETAMINOPHEN TAB 500 MG TAB PO PRN (10:43)
[2024-05-28] MEDS: ONDANSETRON 4 MG/2 ML VIAL IVP ONE (10:43)
[2024-05-28] MEDS: DEXAMETHASONE SOD PHOSPHATE 4 MG/ML 1 ML VIAL IV ONE (10:43)
[2024-05-28] MEDS: MIDAZOLAM 2 MG/2 ML VIAL IV ONE (10:59)
[2024-05-28] MEDS: fentaNYL (PF) 50 MCG/ML 2 ML AMP IVP PRN (11:08)
[2024-05-28] MEDS: HEPARIN SODIUM,PORCINE 5,000 UNIT/ML 1 ML VIAL SQ PRN (11:15)
--- NOTE | 2024-05-28 11:16 | P.ANPRN ---
Procedure Note - Anesthesia - Nerve Block Performed Bilateral Erector Spinae Single Date of Procedure: 05/28/24 Procedure Start Time: 10:59 Procedure Stop Time: 11:04 Location of Patient: PreOp Indication: Acute Post-Operative Pain, Analgesia, Requested by Surgeon Sedation Type: Sedate with meaningful contact maintained Preparation: Sterile Prep Position: Prone Catheter: None Needle Types: Pajunk Needle Gauge: 21 Ultrasound used to visualize needle placement: Yes Ultrasound used to observe medication spread: Yes Injectate: 0.5% Ropivacaine (see comment for volume) (Ropiv 20ml+Decadron 4mg, Needle level B84--Muww side.) Blood Aspirated: No Pain Paresthesia on Injection Noted: No Resistance on Injection: Normal Image Stored and Saved: Yes Events: Uneventful and Well Tolerated
--- NOTE | 2024-05-28 11:34 | P.GSHP ---
History of Present Illness H&P Date: 05/28/24 Chief Complaint: Left inguinal hernia This is a 58-year-old male with a left inguinal hernia. Patient presents today for laparoscopic robot-assisted repair. Past Medical History Past Medical History: Osteoarthritis (OA), Pneumonia, Seizure Disorder Additional Past Medical History / Comment(s): left inguinal hernia,epilepsy-unk last seizure, chronic back/neck pain, hepatitis C,A and Hep B, abnormalty left f oot great History of Any Multi-Drug Resistant Organisms: None Reported Past Surgical History: Hernia Repair Additional Past Surgical History / Comment(s): R inguinal hernia repair, L arm benign tumor excision. Past Anesthesia/Blood Transfusion Reactions: No Reported Reaction Additional Past Anesthesia/Blood Transfusion Reaction / Comment(s): no hx blood transfusion Smoking Status: Current every day smoker - Past Family History Father Family Medical History: Cancer Additional Family Medical History / Comment(s): lung/liver cancer. He is . Mother Family Medical History: Cancer Additional Family Medical History / Comment(s): Mother of lung cancer. She was a smoker. Medications and Allergies Home Medications Medication Instructions Recorded Confirmed Type No Known Home Medications 05/20/24 05/27/24 History Allergies Allergy/AdvReac Type Severity Reaction Status Date / Time buspirone [From BuSpar] AdvReac Anaphylaxis Verified 05/28/24 10:24 diphenhydramine HCl AdvReac Rapid Verified 05/28/24 10:24 [From Benadryl] Heart Rate muscle relaxers AdvReac Nausea & Uncoded 05/28/24 10:24 Vomiting, Agression Surgical - Exam Vital Signs Temp Pulse Resp BP Pulse Ox 97.0 F L 81 16 196/112 100 05/28/24 10:21 05/28/24 10:21 05/28/24 10:21 05/28/24 10:21 05/28/24 10:21 - General well developed, well nourished - Eyes PERRL - ENT normal pinna - Neck no masses - Respiratory normal expansion - Cardiovascular Rhythm: regular - Abdomen Abdomen: soft, non tender Hernia: inguinal (Left reducible) Assessment and Plan Assessment: Left inguinal hernia. Will perform robotic assisted repair.
[2024-05-28] MEDS: BUPIVACAINE (PF) 0.25% 30 ML VIAL SQ ONE ×2 (11:43→12:49)
[2024-05-28] MEDS ORDERED: NEOSTIGMINE 1 MG/ML 10 ML VIAL ONE (12:21)
[2024-05-28] MEDS ORDERED: PHENYLEPHRINE-0.9% NACL SYG 1,000 MCG/10 ML SYRINGE ONE (12:21)
[2024-05-28] MEDS ORDERED: MIDAZOLAM 2 MG/2 ML VIAL ONE (12:21)
[2024-05-28] MEDS ORDERED: DEXAMETHASONE SOD PHOSPHATE 4 MG/ML 1 ML VIAL ONE (12:21)
[2024-05-28] MEDS ORDERED: LIDOCAINE 1% INJ 10MG/ML (20 ML MDV) ONE (12:21)
[2024-05-28] MEDS ORDERED: PROPOFOL 10 MG/ML 20 ML VIAL IV ONE (12:21)
[2024-05-28] MEDS ORDERED: SUCCINYLCHOLINE CHLORIDE 200 MG/10 ML VIAL IV ONE (12:21)
[2024-05-28] MEDS ORDERED: ROCURONIUM 10 MG/ML (5 ML VIAL) IV ONE (12:21)
[2024-05-28] MEDS ORDERED: GLYCOPYRROLATE 0.2 MG/ML 2 ML VIAL ONE (12:21)
[2024-05-28] MEDS ORDERED: ROPIVACAINE 5 MG/ML 30 ML VIAL ONE (12:21)
[2024-05-28] MEDS ORDERED: fentaNYL (PF) 50 MCG/ML 2 ML AMP ONE (12:21)
[2024-05-28] MEDS ORDERED: KETOROLAC 15 MG/ML 1 ML VIAL ONE (12:21)
[2024-05-28] MEDS: LACTATED RINGERS 1,000 ML IV ONE (13:00)
[2024-05-28 13:32] VITALS: TEMP 97.1
--- NOTE | 2024-05-28 13:33 | P.OP ---
Date of Procedure: 05/28/24 Preoperative Diagnosis: Left inguinal hernia Postoperative Diagnosis: Left inguinal hernia Procedure(s) Performed: laparoscopic robot-assisted pair of left inguinal hernia Transversus abdominis plane block Anesthesia: MAC Surgeon: Carlos Tavarez Estimated Blood Loss (ml): 5 Pathology: none sent Condition: stable Disposition: PACU Description of Procedure: The patient's placed on the operating table in the supine position. The patient received general anesthesia. The patient's abdomen was prepped and draped in usual sterile fashion. The skin was anesthetized 1% local Xylocaine at the incision sites. Using an 11 blade a skin incision was made at the umbilicus. The fascia was grasped with a [place] and then the peritoneal cavity was entered with the Veress needle. Position of the Veress needle was confirmed with a positive drop test. After adequate insufflation a 5 mm trocar was placed into the peritoneal cavity. The Laparoscope was placed the peritoneal cavity. And a robotic 8 mm trocar was placed in the right lateral position and then another 8 mm robotic trochars placed in the left lateral position. The original 5 mm trocar was exchanged for a 12 mm trocar. A four-quadrant transversus abdominis plane block was performed 1% local Xylocaine. The patient was placed in reverse Trendelenburg and then the patient was docked to the robot. Next the peritoneum over top of the hernia was incised and then using blunt and sharp dissection and electrocautery the hernia sac was dissected free from the floor of the inguinal canal. The hernia sac was completely reduced into the peritoneal cavity. And then using the Pro logistics manager mesh the hernia was repaired. The peritoneum was then sutured with 20V lock suture. The patient was then undocked the robot. The needle was withdrawn from the peritoneal cavity. The umbilical trocar site was closed with 0 Ethibond suture. The skin was closed interrupted 3-0 Monocryl suture. Dermabond dressing was applied. Patient was sent to recovery in stable condition.
[2024-05-28] MEDS: HYDROmorphone 0.5 MG/0.5 ML SYRINGE IVP PRN (14:18)
[2024-05-28 15:44] VITALS: BP 171/97; PULSE 80; RESP 20
== END 2024-05-28 15:25 | disposition home or self-care (01) ==
LOC: OR 08:29
PROVIDERS: ATTEND Surgery
DX: K40.90 Unilateral inguinal hernia, without obstruction or gangrene, not specified as recurrent (principal); Z80.0 Family history of malignant neoplasm of digestive organs; Z80.1 Family history of malignant neoplasm of trachea, bronchus and lung; F17.200 Nicotine dependence, unspecified, uncomplicated
CPT/HCPCS: 49650; S2900; 64999

== ENCOUNTER 2024-07-05 14:04 | Emergency (ER) | payer MEDICARE, OTHER ==
--- NOTE | 2024-07-05 14:57 | ED ---
General Adult HPI - General Chief complaint: Extremity Injury, Upper Stated complaint: swollen arm and pain Time Seen by Provider: 07/05/24 14:20 Source: patient, RN notes reviewed Mode of arrival: ambulatory Limitations: no limitations - History of Present Illness Initial comments: 58-year-old male presents to the emergency department for evaluation of right arm and hand pain. Patient states that this started he fell while carrying a bag of cat food. He states that his wrist got caught in the railing of the deck. He states the pain is in his dorsal right wrist and radiates up to his elbow. He also reports pain in his thumb. He denies head injury. Denies blood thinners. - Related Data Previous Rx's Medication Instructions Recorded HYDROcodone/APAP 5-325MG [[place] 1 tab PO Q6HR PRN #10 tab 05/28/24 5-325] Ibuprofen [Motrin] 600 mg PO Q6HR PRN #40 tab 05/28/24 oxyCODONE HCL [OxyIR] 5 mg PO Q6H PRN 3 Days #10 tab 06/02/24 Allergies Allergy/AdvReac Type Severity Reaction Status Date / Time buspirone [From BuSpar] AdvReac Anaphylaxis Verified 07/05/24 14:19 diphenhydramine HCl AdvReac Rapid Verified 07/05/24 14:19 [From Benadryl] Heart Rate muscle relaxers AdvReac Nausea & Uncoded 07/05/24 14:19 Vomiting, Agression Review of Systems ROS Statement: Those systems with pertinent positive or pertinent negative responses have been documented in the HPI. ROS Other: All systems not noted in ROS Statement are negative. Past Medical History Past Medical History: Osteoarthritis (OA), Pneumonia, Seizure Disorder Additional Past Medical History / Comment(s): left inguinal hernia,epilepsy-unk last seizure, chronic back/neck pain, hepatitis C,A and Hep B, abnormalty left foot great History of Any Multi-Drug Resistant Organisms: None Reported Past Surgical History: Hernia Repair Additional Past Surgical History / Comment(s): R inguinal hernia repair, L arm benign tumor excision, hernia repair 05/28/24 Past Anesthesia/Blood Transfusion Reactions: No Reported Reaction Additional Past Anesthesia/Blood Transfusion Reaction / Comment(s): no hx blood transfusion Past Psychological History: ADD/ADHD, Anxiety, Depression Smoking Status: Former smoker, Vaper Past Alcohol Use History: None Reported Past Drug Use History: Marijuana - Past Family History Father Family Medical History: Cancer Additional Family Medical History / Comment(s): lung/liver cancer. He is . Mother Family Medical History: Cancer Additional Family Medical History / Comment(s): Mother of lung cancer. She was a smoker. General Exam Limitations: no limitations General appearance: alert, in no apparent distress Head exam: Present: atraumatic, normocephalic, normal inspection Neck exam: Present: normal inspection, full ROM. Absent: tenderness, meningismus, lymphadenopathy Respiratory exam: Present: normal lung sounds bilaterally. Absent: respiratory distress, wheezes, rales, rhonchi, stridor Cardiovascular Exam: Present: regular rate, normal rhythm, normal heart sounds. Absent: systolic murmur, diastolic murmur, rubs, gallop, clicks Extremities exam: Present: full ROM, normal capillary refill, other (Radial pulses 2+, right wrist tenderness palpation over dorsal aspect of the distal radius). Absent: tenderness, pedal edema, joint swelling, calf tenderness Neurological exam: Present: alert, oriented X3 Psychiatric exam: Present: normal affect, normal mood Skin exam: Present: warm, dry, intact, normal color. Absent: rash Course Vital Signs 07/05/24 07/05/24 14:14 16:01 Temperature 98.0 F Pulse Rate 66 65 Respiratory 18 20 Rate Blood Pressure 168/85 164/84 O2 Sat by Pulse 100 97 Oximetry Medical Decision Making - Medical Decision Making Was pt. sent in by a medical professional or institution (, PA, PHARMACY STUDENT, urgent care, hospital, or usp...) When possible be specific @ -No Did you speak to anyone other than the patient for history (EMS, parent, family, police, friend...)? What history was obtained from this source @ -No Did you review nursing and triage notes (agree or disagree)? Why? @ -I reviewed and agree with nursing and triage notes Were old charts reviewed (outside hosp., previous admission, EMS record, old EKG, old radiological studies, urgent care reports/EKG's, usp records)? Report findings @ -No old charts were reviewed Differential Diagnosis (chest pain, altered mental status, abdominal pain women, abdominal pain men, vaginal bleeding, weakness, fever, dyspnea, syncope, headache, dizziness, GI bleed, back pain, seizure, CVA, palpatations, mental health, musculoskeletal)? @ -Differential Musculoskeletal Muscular strain, contusion, ligament sprain, fracture, arthritis, septic arthritis, bursitis, cellulitis, muscle spasm, nerve compression, DVT, arterial occlusion, herpes zoster, electrolyte abnormality, tumor.... This is not meant to be in all inclusive list EKG interpreted by me (3pts min.). @ -None X-rays interpreted by me (1pt min.). @ -X-ray of the right hand shows no acute fracture or dislocation X-ray of the right forearm shows no acute fracture or dislocation CT interpreted by me (1pt min.). @ -None done U/S interpreted by me (1pt. min.). @ -None done What testing was considered but not performed or refused? (CT, X-rays, U/S, labs)? Why? @ -None What meds were considered but not given or refused? Why? @ -None Did you discuss the management of the patient with other professionals (professionals i.e. , PA, PHARMACY STUDENT, lab, RT, psych nurse, social worker delinquency prevention, senior medical technologist, teacher, cash management officer, therapeutic case manager)? Give summary @ -No Was smoking cessation discussed for >3mins.? @ -No Was critical care preformed (if so, how long)? @ -No Were there social determinants of health that impacted care today? How? (Homelessness, low income, unemployed, alcoholism, drug addiction, transportation, low edu. Level, literacy, decrease access to med. care, alf, rehab)? @ -No Was there de-escalation of care discussed even if they declined (Discuss DNR or withdrawal of care, Hospice)? DNR status @ -No What co-morbidities impacted this encounter? (DM, HTN, Smoking, COPD, CAD, Cancer, CVA, ARF, Chemo, Hep., AIDS, mental health diagnosis, sleep apnea, morbid obesity)? @ -None Was patient admitted / discharged? Hospital course, mention meds given and route, prescriptions, significant lab abnormalities, going to OR and other pertinent info. @ -Discharge. Patient presented emergency department for evaluation of right hand and forearm pain. Patient reports a fall earlier today. Denies any blood thinners or head injury. X-rays of the hand and forearm are obtained revealing no acute fracture or dislocation. Patient does have some anatomical snuffbox tenderness and therefore was splinted. Patient advised to follow-up with orthopedic. He is understanding agreeable this plan. Patient stable at time of discharge. Case discussed with Dr. Leonard Undiagnosed new problem with uncertain prognosis? @ -No Drug Therapy requiring intensive monitoring for toxicity (Heparin, Nitro, Insulin, Cardizem)? @ -No Were any procedures done? @ -No Diagnosis/symptom? @ -Wrist pain Acute, or Chronic, or Acute on Chronic? @ -acute Uncomplicated (without systemic symptoms) or Complicated (systemic symptoms)? @ -uncomplicated Side effects of treatment? @ -No Exacerbation, Progression, or Severe Exacerbation? @ -No Poses a threat to life or bodily function? How? (Chest pain, [place], [place], pneumonia, PE, COPD, DKA, ARF, appy, cholecystitis, CVA, Diverticulitis, Homicidal, Suicidal, threat to staff... and all critical care pts) @ -No Disposition Clinical Impression: Tenderness of anatomical snuffbox, Wrist injury Disposition: HOME SELF-CARE Condition: Stable Instructions (If sedation given, give patient instructions): Wrist Injury (ED) Is patient prescribed a controlled substance at d/c from ED?: No Referrals: None,Stated [Primary Care Provider] - 1-2 days Tristin Campos MD [Medical Doctor] - 1-2 days
--- NOTE | 2024-07-05 15:02 | XR ---
EXAMINATION TYPE: XR hand complete RT, XR forearm RT DATE OF EXAM: 07/05/2024 2:53 PM COMPARISON: Previous radiograph 03/24/2020. CLINICAL INDICATION: Male, 58 years old with history of fall, pain; PHH, pain TECHNIQUE: XR hand complete RT, XR forearm RT Frontal, lateral and oblique views were obtained. FINDINGS: Normal alignment of the visualized joints. No acute osseous pathology is identified. 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 Well-corticated ossific fragments adjacent to the ulnar styloid process likely sequelae of old trauma. Carpal alignment is maintained. Soft tissue swelling adjacent to the right wrist. IMPRESSION: No acute fracture or dislocation in the right wrist and right forearm. [facility], , 07/05/2024 2:59 PM
[2024-07-05 15:14] VITALS: TEMP 98
[2024-07-05] MEDS: KETOROLAC 15 MG/ML 1 ML VIAL IM STA (15:41)
[2024-07-05] MEDS: Acetaminophen-Codeine 300-30mg TAB PO STA (16:01)
[2024-07-05 16:03] VITALS: BP 164/84; PULSE 65; RESP 20
== END 2024-07-05 16:02 | disposition home or self-care (01) ==
LOC: EC 14:04
DX: S69.91XA Unspecified injury of right wrist, hand and finger(s), initial encounter (principal); F17.290 Nicotine dependence, other tobacco product, uncomplicated; Z88.8 Allergy status to other drugs, medicaments and biological substances; W19.XXXA Unspecified fall, initial encounter; W22.8XXA Striking against or struck by other objects, initial encounter
CPT/HCPCS: 99283